=== PATIENT | female | born 1940 | race Caucasian/White ===

== ENCOUNTER 2019-10-31 11:11 | Outpatient (CLI) | payer MEDICARE, BC, SELFPAY | END 2019-10-31 11:12 | disposition home or self-care (01) | LOC: ONCMED 11:18 | PROVIDERS: Family Provider Family Medicine; PCP Family Medicine; Visit Provider Internal Medicine Medical Oncology | DX: Z45.2 Encounter for adjustment and management of vascular access device (principal) | CPT/HCPCS: 96523 ==

== ENCOUNTER → 2019-11-12 09:06 | Outpatient (BNVA) | payer MEDICARE, BC, SELFPAY | PROVIDERS: Family Provider Family Medicine; PCP Family Medicine; Referring Provider Internal Medicine Medical Oncology; Visit Provider Podiatrist Foot & Ankle Surgery | DX: M77.31 Calcaneal spur, right foot (principal); M21.41 Flat foot [pes planus] (acquired), right foot | CPT/HCPCS: 73620; 73630 ==

== ENCOUNTER → 2019-11-13 15:00 | Outpatient (BNVA) | payer MEDICARE, BC, SELFPAY | PROVIDERS: Family Provider Family Medicine; PCP Family Medicine; Visit Provider Nurse Practitioner Family | DX: R30.0 Dysuria (principal); R39.9 Unspecified symptoms and signs involving the genitourinary system; N76.0 Acute vaginitis | CPT/HCPCS: 81003; 87086 ==

== ENCOUNTER → 2019-11-26 14:21 | Outpatient (BNVA) | payer MEDICARE, BC, SELFPAY | PROVIDERS: Family Provider Family Medicine; PCP Family Medicine; Visit Provider Urology | DX: N39.0 Urinary tract infection, site not specified (principal); R33.9 Retention of urine, unspecified; N39.9 Disorder of urinary system, unspecified | CPT/HCPCS: 81001; 87077; 87086; 87186 ==

== ENCOUNTER 2019-12-01 13:25 | Outpatient (CLI) | payer MEDICARE, BC, SELFPAY | END 2019-12-01 13:26 | disposition home or self-care (01) | LOC: ONCMED 13:28 | PROVIDERS: Family Provider Family Medicine; PCP Family Medicine; Visit Provider Internal Medicine Medical Oncology | DX: Z45.2 Encounter for adjustment and management of vascular access device (principal) | CPT/HCPCS: 96523 ==

== ENCOUNTER 2019-12-04 10:06 | Outpatient (CLI) | payer MEDICARE, BC, SELFPAY ==
[2019-12-04 10:44] LABS: Basophils # 0.1 10^3/uL (0.0-0.1); Basophils % 0.6 %; Eosinophils # 0.6 10^3/uL (0.0-0.8); Eosinophils % 7.6 %; Hematocrit 40.5 % (37.0-47.0); Hemoglobin 13.2 g/dL (11.5-15.3); Lymphocytes # 2.7 10^3/uL (0.8-4.8); Lymphocytes % 33.2 %; Mean Corpuscular HGB Conc 32.6 g/dL (30.0-36.0); Mean Corpuscular Hemoglobin 30.5 pg (28.0-34.0); Mean Corpuscular Volume 93.5 fL (81-99); Mean Platelet Volume 8.5 fL (7.4-10.4); Monocytes # 0.9 10^3/uL (0.2-0.9); Monocytes % 11.3 %; Neutrophils # 3.9 10^3/uL (1.8-7.7); Neutrophils % 47.1 %; Nucleated Red Blood Cells % 0 %; Platelet Count 436 10^3/cmm (130-400); Red Blood Count 4.33 10^6/uL (4.1-5.3); Red Cell Distribution Width 13.2 % (12.1-15.1); White Blood Count 8.2 10^3/uL (4.0-10.0)
[2019-12-04 10:54] LABS: Albumin Level 3.8 g/dL (3.5-5.2); Anion Gap 14.9 (5-19); Blood Urea Nitrogen 18 mg/dL (8-23); Calcium 9.6 mg/dL (8.5-10.5); Carbon Dioxide 28 mmol/L (22-29); Chloride 93 mmol/L (98-107); Glucose 105 mg/dL (65-115); Potassium 3.9 mmol/L (3.5-5.1); Sodium 132 mmol/L (136-145)
[2019-12-04 10:59] LABS: Creatinine Urine, Random 34 mg/dL (28-217)
[2019-12-04 11:02] LABS: Microalbum Creatinine Ratio Ur 29 mg/dL (0-20); Microalbumin Random Urine 1 ug/dL (0-20)
[2019-12-04 11:11] LABS: Calcium 9.8 mg/dL (8.5-10.5); Parathyroid Hormone 149.7 pg/mL (15-65)
== END 2019-12-04 10:07 | disposition home or self-care (01) ==
LOC: LAB 10:07
PROVIDERS: Family Provider Family Medicine; PCP Family Medicine; Visit Provider Internal Medicine Nephrology
DX: N18.4 Chronic kidney disease, stage 4 (severe) (principal)
CPT/HCPCS: 36415; 80069; 82044; 82310; 83970; 85025

== ENCOUNTER → 2019-12-10 15:46 | Outpatient (BNVA) | payer MEDICARE, BC, SELFPAY | PROVIDERS: Family Provider Family Medicine; PCP Family Medicine; Visit Provider Urology | DX: N39.0 Urinary tract infection, site not specified (principal); N94.9 Unspecified condition associated with female genital organs and menstrual cycle | CPT/HCPCS: 81001 ==

== ENCOUNTER 2019-12-29 19:05 | Emergency (ER) | payer MEDICARE, BC, SELFPAY ==
[2019-12-29 19:40] VITALS: BP 131/87; PULSE 119; RESP 18; TEMP 36.4; O2SAT 95; BMI 27.2
[2019-12-29 20:28] LABS: Basophils % 0.5 %; Eosinophils # 0.1 10^3/uL (0.0-0.8); Eosinophils % 0.9 %; Hematocrit 45.8 % (37.0-47.0); Lymphocytes # 1.6 10^3/uL (0.8-4.8); Lymphocytes % 19.4 %; Mean Corpuscular HGB Conc 32.8 g/dL (30.0-36.0); Mean Corpuscular Hemoglobin 29.5 pg (28.0-34.0); Mean Platelet Volume 8.9 fL (7.4-10.4); Monocytes # 0.7 10^3/uL (0.2-0.9); Monocytes % 8.2 %; Neutrophils % 70.8 %; Nucleated Red Blood Cells % 0 %; Platelet Count 361 10^3/cmm (130-400); Red Blood Count 5.09 10^6/uL (4.1-5.3); Red Cell Distribution Width 13.4 % (12.1-15.1); White Blood Count 8.5 10^3/uL (4.0-10.0)
[2019-12-29 20:49] LABS: Alanine Aminotransferase 18 U/L (0-33); Albumin Level 4.4 g/dL (3.5-5.2); Alkaline Phosphatase 144 IU/L (35-105); Anion Gap 19.3 (5-19); Aspartate Amino Transferase 25 U/L (0-32); Blood Urea Nitrogen 17 mg/dL (8-23); Calcium 10.9 mg/dL (8.5-10.5); Carbon Dioxide 25 mmol/L (22-29); Chloride 93 mmol/L (98-107); Globulin 3.7 g/dL (1.3-4.6); Glucose 122 mg/dL (65-115); Lipase 21 U/L (13-60); Potassium 4.3 mmol/L (3.5-5.1); Sodium 133 mmol/L (136-145); Total Bilirubin 0.6 mg/dL (0.15-1.2); Total Protein 8.1 g/dL (6.6-8.7)
[2019-12-29 23:42] LABS: Add Urine Microscopic? YES; Bilirubin Urine Neg (NEGATIVE); Blood Urine Neg (Negative); Glucose Urine UA Norm (Normal); Ketones Urine Negative (Negative); Leukocyte Esterase Urine Trace (Negative); Nitrate Urine Negative (Negative); Protein Urine Neg (Negative); Urine Appearance Hazy (CLEAR); Urine Color Dark Yellow (Yellow); Urobilinogen Urine Norm (Negative); pH Urine 8 (5-7)
[2019-12-29 23:52] LABS: Sulfosalicylic Acid Urine Negative
[2019-12-29 23:54] LABS: RBC Urine 0-4 /hpf (0-2); WBC Urine 15-25 /hpf (0-5)
[2019-12-29 23:55] LABS: Add Urine Culture? No; Bacteria Urine 2+; Squamous Epithelial Cell Urine 25-40 (0-5); Transitional Epi Cells Urine 0-4 /hpf
--- NOTE | 2019-12-30 00:39 | ED_ITS ---
Entered by Jenni Sanchez, acting as scribe for Jami Stevens MD Dec 29, 2019 19:05 HPI - Female Genitourinary General: Chief complaint: Urogenital-Female Stated complaint: abd pain Time Seen by Provider: 12/30/19 00:33 Source: patient and family Mode of arrival: ambulatory History of Present Illness: HPI Narrative: 79 y/o female presents to the ED with complaint of abd pain and painful urination. Pt states she has not felt well for several days. She states feels like his urinary tract infection. She denies any vomiting or diarrhea. She denies any worsening or improving factors. MD elicited complaint: dysuria and other (abd pain) Onset (ago): day(s) Severity: mild Quality of pain: cramping and burning Consistency: constant Urinary symptoms: Dysuria Associated symptoms: Reports abdominal pain; Deny headache(s) Review of Systems Const: Denies: fever, chills, body aches or change in appetite Eyes: Denies: blurry vision or eye discomfort ENMT: Denies: throat pain or dental pain Card: Denies: chest pain Resp: Denies: shortness of breath GI: Reports: abdominal pain and constipation; Denies: vomiting : Reports: painful urination Musc: Denies: neck pain or back pain Skin/Breast: Denies: rash Neuro: Denies: headache Psych: Denies: depression Alvaro/Lymph: Denies: easy bruising All/Imm: Denies: hives PFS ED PFSH: Medical History (Updated 12/30/19 @ 02:36 by Jami Stevens MD) Cancer of right kidney Genital atrophy of female Recurrent UTI Retention of urine S/p nephrectomy Surgical History H/O transurethral destruction of bladder lesion S/P mastectomy Status post repair cleft left atrioventricular valve leaflet Social History (Updated 12/10/19 @ 15:45 by Radha Fabian LPN) Smoking and tobacco status: never smoked Alcohol intake: never Adopted: No Caregiver/support person: No Lives independently: No Household members: spouse Marital status: Current occupational status: retired History of recent travel: No Physical Exam Const: COMMON NORMALS: no apparent distress, oriented x3 and healthy appearing HENMT: COMMON NORMALS: normocephalic and head/scalp atraumatic HEAD & SCALP: normocephalic and atraumatic Eye: COMMON NORMALS: PERRL and EOMs intact bilaterally PUPIL: Yes PERRL Neck/C-Spine: COMMON NORMALS: full ROM and supple Chest: COMMONS NORMALS: inspection of chest normal and palpation of chest normal Resp: COMMON NORMALS: normal respiratory effort, no retractions, no use of accessory muscles and clear to auscultation bilaterally AUSCULTATION: clear to auscultation bilaterally Cardio: COMMON NORMALS: regular rate, regular rhythm and no murmurs RATE: regular rate RHYTHM: regular rhythm GI: COMMON NORMALS: normal to inspection, nondistended, normoactive bowel sounds and no masses PALPATION: Yes tender Extremity: COMMON NORMALS: normal to inspection and full ROM Neuro: COMMON NORMALS: oriented x3, moves all extremities and no focal motor deficits Psych: COMMON NORMALS: mental status grossly normal, thought process normal and cooperative THOUGHT PROCESS: normal thought process Skin: COMMON NORMALS: no rashes or lesions noted and no wounds GENERAL SKIN EXAM: no rashes or lesions noted Course Vital Signs: Vital signs: Vital Signs Temperature 97.6 F 12/29/19 19:40 Pulse Rate 92 12/30/19 03:26 Respiratory Rate 22 H 12/30/19 03:26 Blood Pressure 122/82 12/30/19 03:26 Pulse Oximetry 97 12/30/19 03:26 MDM - Female MDM Narrative: Medical decision making narrative: Patient presents with dysuria and likely urinary tract infection. CT scan shows possible Larry. She has no fever or vomiting. Patient's white count was normal I feel she is stable for discharge. She is to follow-up with her primary care doctor in 3 to 5 days return if worsening. Lab Data: Labs: Lab Results 12/29/19 12/29/19 12/29/19 Range/Units 20:18 20:18 22:55 WBC 8.5 (4.0-10.0) 10^3/ uL RBC 5.09 (4.1-5.3) 10^6/u L Hgb 15.0 (11.5-15.3) g/dL Hct 45.8 (37.0-47.0) % MCV 90.0 (81-99) fL MCH 29.5 (28.0-34.0) pg MCHC 32.8 (30.0-36.0) g/dL RDW 13.4 (12.1-15.1) % Plt Count 361 (130-400) 10^3/c mm MPV 8.9 (7.4-10.4) fL Neut % (Auto) 70.8 % Lymph % (Auto) 19.4 % [place] % (Auto) 8.2 % Eos % (Auto) 0.9 % Baso % (Auto) 0.5 % Neut # (Auto) 6.0 (1.8-7.7) 10^3/u L Lymph # (Auto) 1.6 (0.8-4.8) 10^3/u L [place] # (Auto) 0.7 (0.2-0.9) 10^3/u L Eos # (Auto) 0.1 (0.0-0.8) 10^3/u L Baso # (Auto) 0.0 (0.0-0.1) 10^3/u L Nucleated RBC % (a uto) 0 % Nucleated RBCs # 0.0 /100WBC Sodium 133 L (136-145) mmol/L Potassium 4.3 (3.5-5.1) mmol/L Chloride 93 L (98-107) mmol/L Carbon Dioxide 25 (22-29) mmol/L Anion Gap 19.3 H (5-19) BUN 17 (8-23) mg/dL Creatinine 1.9 H (0.5-0.9) mg/dL Glucose 122 H (65-115) mg/dL Calcium 10.9 H (8.5-10.5) mg/dL Total Bilirubin 0.6 (0.15-1.2) mg/dL AST 25 (0-32) U/L ALT 18 (0-33) U/L Alkaline Phosphata se 144 H (35-105) IU/L Total Protein 8.1 (6.6-8.7) g/dL Albumin 4.4 (3.5-5.2) g/dL Globulin 3.7 (1.3-4.6) g/dL Lipase 21 (13-60) U/L Urine Color Dark yellow (Yellow) Urine Appearance Hazy A (CLEAR) Urine pH 8 H (5-7) Ur Specific Gravit y 1.010 (1.005-1.030) Urine Protein Neg (Negative) Urine Glucose (UA) Norm (Normal) Urine Ketones Negative (Negative) Urine Blood Neg (Negative) Urine Nitrate Negative (Negative) Urine Bilirubin Neg (NEGATIVE) Prot Sulfosalicyli c Acd Negative Urine Urobilinogen Norm (Negative) mg/dL Ur Leukocyte Claudia ase Trace H (Negative) Urine RBC 0-4 H (0-2) /hpf Urine WBC 15-25 H (0-5) /hpf Ur Squamous Epith Cells 25-40 H (0-5) Ur Transition Epit h Cell 0-4 /hpf Urine Bacteria 2+ H (NONE) Imaging Data: CT Abd/Pel: Radiologist's impression: Dr: Ordering Provider/Ordering MD: Jami Stevens MD Date of Service: 12/30/19 Procedure(s): CT abdomen pelvis con [id number] Accession Number(s): [id number] Report Number: [id number] PROCEDURE INFORMATION: Exam: CT Abdomen And Pelvis Without Contrast Exam date and time: 12/30/2019 12:43 AM Age: 79 years old Clinical indication: Abdominal pain; Localized; Lower; Prior surgery; Surgery date: 6+ months; Surgery type: Right nephrectomy; Additional info: Abd pain TECHNIQUE: Imaging protocol: Computed tomography of the abdomen and pelvis without contrast. Total DLP: 778.17 mGy-cm Radiation optimization: All CT scans at this facility use at least one of these dose optimization techniques: automated exposure control; mA and/or kV adjustment per patient size (includes targeted exams where dose is matched to clinical indication); or iterative reconstruction. COMPARISON: CT Chest/Abdomen/Pelvis wo IV 09/30/2019 10:56 AM FINDINGS: Liver: Normal. No mass. Gallbladder and bile ducts: Cholelithiasis. Gallbladder otherwise grossly unremarkable. Pancreas: Normal. No ductal dilation. Spleen: Normal. No splenomegaly. Adrenals: Normal. No mass. Kidneys and ureters: Changes of right nephrectomy. Stomach and bowel: Colonic diverticuli. Appendix: No evidence of appendicitis. Intraperitoneal space: Unremarkable. No free air. No significant fluid collection. Vasculature: Calcifications. No abdominal aortic aneurysm. Lymph nodes: Unremarkable. No enlarged lymph nodes. Bladder: See below. Reproductive: Hysterectomy. Bones/joints: Hemangioma L4 unchanged. Soft tissues: Right breast external prosthesis noted. Fatty ventral hernias are unchanged. Other findings: Cystocele unchanged. CT/CT abdomen pelvis wo con [id number] IMPRESSION: No acute findings. Cholelithiasis. Right nephrectomy. Additional details as above. Discharge Plan Discharge Patient Disposition: Home, Self-Care Clinical Impression: Urinary tract infection Qualifiers: Urinary tract infection type: acute cystitis Hematuria presence: without hematuria Qualified Code(s): N30.00 - Acute cystitis without hematuria Condition: Stable Prescriptions: New Keflex 500 mg capsule 500 mg PO Q6H 7 Days Qty: 28 RF: 0 No Action aspirin 81 mg tablet,delayed release (DR/EC) 81 mg PO ONCE RF: 0 atorvastatin 20 mg tablet 20 mg PO ONCE RF: 0 carvedilol 12.5 mg tablet 12.5 mg PO BID RF: 0 furosemide 40 mg tablet 40 mg PO QAM RF: 0 hydromorphone 4 mg tablet 4 mg PO Q6H PRNRF: 0 olanzapine 2.5 mg tablet 2.5 mg PO ONCE RF: 0 omeprazole 40 mg capsule,delayed release(DR/EC) 40 mg PO BID RF: 0 prednisone 2.5 mg tablet 2.5 mg PO .QOD RF: 0 potassium chloride 10 mEq capsule, extended release 10 meq PO DAILY RF: 0 spironolactone 25 mg tablet 25 mg PO DAILY RF: 0 methenamine hippurate 1 gram tablet 1 gm PO BID Qty: 60 RF: 12 ascorbic acid (vitamin C) 1,000 mg tablet 1 gm PO BID Qty: 60 RF: 3 amitriptyline 25 mg tablet 25 mg PO DAILY RF: 0 diclofenac sodium [Voltaren] 1 % gel 4 gm TOPICAL QID Qty: 100 RF: 3 Discharge Orders: Discharge Order (Routine); Ordered 12/30/19 Ordered By: Jami Stevens Referrals: Andrei Millan MD [Primary Care Provider] - 1-3 days Discharge Diet: Advance as tolerated Discharge Activity: Resume usual activity Patient Instructions: Urinary Tract Infection in Women (ED) Discharge Date/Time: 12/30/19 03:28 Coding Level of Care Code ED Line Fisher for Chg Fwd Exam Comprehensive The documentation recorded by the Daniel martinez Ashley, accurately reflects the service I personally performed and the decisions made by Hilda powell Korby, MD Dec 29, 2019 19:05
[2019-12-30] MEDS: sodium chloride 0.9% 1,000 ML 999 ML IV (01:11)
[2019-12-30 01:12] VITALS: RESP 16
[2019-12-30] MEDS: morphine 4 mg/mL SDV 1 mL IVP (01:12)
[2019-12-30] MEDS: ondansetron 2 mg/ML SDV 2 mL 4 MG IVP (01:13)
[2019-12-30] MEDS: cefTRIAXone 1,000 MG in sodium chloride 0.9% (plus) 50 ML 100 MG IV (02:50)
[2019-12-30 03:26] VITALS: BP 122/82; PULSE 92; RESP 22; O2SAT 97
--- NOTE | 2019-12-30 03:35 | PC.NURSE ---
assessment reviewed and agree
== END 2019-12-30 03:28 | disposition home or self-care (01) ==
PROVIDERS: Emergency Provider Emergency Medicine; Family Provider Family Medicine; PCP Family Medicine
DX: N39.0 Urinary tract infection, site not specified (principal)
CPT/HCPCS: 36415; 74176; 80053; 81001; 81003; 83690; 85025; 87086; 96365; 96375; 99283; 99284; J0696; J2270; J2405; J7030

== ENCOUNTER → 2019-12-31 13:35 | Outpatient (BNVA) | payer MEDICARE, BC, SELFPAY | PROVIDERS: Family Provider Family Medicine; PCP Family Medicine; Visit Provider Urology | DX: N39.0 Urinary tract infection, site not specified (principal); N94.9 Unspecified condition associated with female genital organs and menstrual cycle | CPT/HCPCS: 81001; 87086 ==

== ENCOUNTER 2020-01-06 08:25 | Outpatient (CLI) | payer MEDICARE, BC, SELFPAY ==
[2020-01-06] MEDS: alteplase 1 mg/mL SDV 2 mL 2 MG IV ×2 (08:56→10:36)
[2020-01-06 09:17] LABS: Add Urine Microscopic? NO
[2020-01-06 09:24] LABS: Specific Gravity, Urine 1.005 (1.005-1.030); Urine Appearance Clear (CLEAR); Urine Color Straw (Yellow)
[2020-01-06 09:26] LABS: Bilirubin Urine Neg (NEGATIVE); Blood Urine Neg (Negative); Glucose Urine UA Norm (Normal); Ketones Urine Negative (Negative); Leukocyte Esterase Urine Negative (Negative); Nitrate Urine Negative (Negative); Protein Urine Neg (Negative); Urobilinogen Urine Norm (Negative)
[2020-01-06 09:27] LABS: Basophils % 0.5 %; Eosinophils # 0.4 10^3/uL (0.0-0.8); Eosinophils % 5.8 %; Hematocrit 40.4 % (37.0-47.0); Hemoglobin 12.9 g/dL (11.5-15.3); Lymphocytes # 1.7 10^3/uL (0.8-4.8); Lymphocytes % 26.6 %; Mean Corpuscular HGB Conc 31.9 g/dL (30.0-36.0); Mean Corpuscular Hemoglobin 29.5 pg (28.0-34.0); Mean Corpuscular Volume 92.4 fL (81-99); Mean Platelet Volume 8.9 fL (7.4-10.4); Monocytes # 0.4 10^3/uL (0.2-0.9); Monocytes % 6.6 %; Neutrophils # 3.8 10^3/uL (1.8-7.7); Neutrophils % 60.3 %; Nucleated Red Blood Cells % 0 %; Platelet Count 315 10^3/cmm (130-400); Red Blood Count 4.37 10^6/uL (4.1-5.3); Red Cell Distribution Width 14.2 % (12.1-15.1); White Blood Count 6.4 10^3/uL (4.0-10.0)
[2020-01-06 09:36] LABS: Alanine Aminotransferase 12 U/L (0-33); Albumin Level 3.3 g/dL (3.5-5.2); Alkaline Phosphatase 104 IU/L (35-105); Aspartate Amino Transferase 17 U/L (0-32); Blood Urea Nitrogen 12 mg/dL (8-23); Calcium 9.5 mg/dL (8.5-10.5); Carbon Dioxide 24 mmol/L (22-29); Chloride 98 mmol/L (98-107); Globulin 3.5 g/dL (1.3-4.6); Glucose 150 mg/dL (65-115); Lactate Dehydrogenase 140 U/L (135-214); Osmolality Calculated 273 mOsm/kg (285-295); Sodium 132 mmol/L (136-145); Total Bilirubin 0.5 mg/dL (0.15-1.2); Total Protein 6.8 g/dL (6.6-8.7)
--- NOTE | 2020-01-10 13:40 | ONC FU_ITS ---
Dr. Newsome Patient Follow-Up Note Patient: Pratibha Ann Unit #: [id number]: 1940 Dicatated By: Reg Newsome M.D.Date of Visit:Jan 06, 2020 Onc Med Follow-up/Prog Note Chief Complaint: Renal cell cancer. History of Present Illness: This is a 79 year-old woman with metastatic renal cell cancer. She had presented in October 2014 with pain in the right flank area and right side of the back. A CT scan of the abdomen/pelvis showed an upper pole mass in the right kidney measuring 3.1 x 4 x 4.4 cm. The appearance was suspicious for neoplasm. There was associated retroperitoneal and retrocrural lymphadenopathy and there were bilateral lower lobe subcentimeter pulmonary nodules. PET/CT on 12/19/2014 showed 4.3 cm FDG avid mass in the right kidney measuring 4.3 cm. There were multiple FDG avid retroperitoneal lymph nodes which included an infrarenal aortic caval node with SUV 7.4. A 9 mm right retrocrural lymph node was FDG negative. There was no portacaval, mediastinal, or supraclavicular adenopathy noted. There were no hepatic or adrenal metastases. There were innumerable subcentimeter pulmonary nodules. An 8 mm nodule in the left lung apex did show FDG uptake with SUV 2.0. The remainder were FDG negative, presumably due to their small size. The appearance was felt to be consistent with pulmonary metastases. She was referred to Dr. Ronni Rapp in [place]. A right renal biopsy on 12/29/2014 showed poorly differentiated carcinoma consistent with a Radha grade 3/4 renal cell carcinoma. On 01/06/2015 she underwent right robotic-assisted laparoscopic radical nephrectomy and right para vena caval lymph node dissection. Pathology showed clear cell renal cell carcinoma, Radha nuclear grade 3. The tumor measured 5.5 cm in maximum dimension. There was extension into the renal sinus adipose tissue and into the wall of the renal vein. There was invasion through the renal capsule into the perinephric adipose tissues. There was involvement of the renal sinus resection margin and the renal vein resection margin. One right perihilar lymph node was benign. Right destiny-vena cava biopsy showed benign adipose tissue with no lymph node identified. Following the surgery, she had continued to have a fair amount of pain in the right side of the abdomen, right flank, and right side of the back. She also had constipation and severe nausea/anorexia. We had not been able to determine a specific cause for the pain or the nausea/anorexia, and thus far she has just continued symptomatic management for it. She eventually did start a trial of therapy with pazopanib following her visit here on 02/15/2015. It was stopped within a short time because of side effects. It was restarted at a reduced dosage (400 mg daily) following her visit in February 2015. She still tolerated it poorly even at the reduced dosage. She had restaging CT scans on 05/12/2015. There was again evidence of innumerable pulmonary nodules bilaterally. These ranged in size from 5-15 mm. The majority showed cavitary necrotic centers. There was a very slight increase in the size of the pulmonary nodules from the previous study. There was extensive mediastinal lymphadenopathy and bilateral necrotic hilar adenopathy. The adenopathy in the abdomen/pelvis was noted to have increased in size and it appeared more confluent. The largest group of confluent necrotic lymph nodes was at the level of the right renal vein measuring 5.7 x 3.8 x 3.8 cm. Overall, there was evidence of significant disease progression. In May 2015 she began a trial of therapy with Torisel. She received her initial treatment on 06/04/2015. She was unable to complete it due to hypersensitivity reaction. As of 06/24/2015 she started a trial of therapy with nivolumab at a standard dosage of 3 mg/kg by IV infusion every 2 weeks. She tolerated it very well, and during this time she had significant improvement in her performance status. Restaging CT scans in July 2015 showed interval marked improvement in the pulmonary metastatic disease and in the bilateral hilar and mediastinal lymphadenopathy and interval moderate decrease in the size and number of retroperitoneal lymph nodes. As of 12/02/2015 she had completed 12 cycles of treatment. Restaging CT scans at that time showed continued decrease in the size and number of bilateral pulmonary metastatic nodules with no evidence of disease progression in the chest. There was also further decrease in the retroperitoneal lymphadenopathy, and no evidence of disease progression in the abdomen/pelvis region. She continued treatment with nivolumab. In January 2016 her treatment was put on hold due to increasing fatigue and musculoskeletal pain. Restaging CT scans on 03/03/2016 showed no evidence of disease progression. There were irregular pulmonary nodules in the upper lobes bilaterally, but they did appear stable. There was no inguinal, retroperitoneal, or mesenteric adenopathy noted. She did have evidence of extensive abdominal aorta and left iliac artery calcific atheromatous changes, but without aneurysm. There were degenerative changes in the lumbar spine. She did report symptomatic improvement with prednisone, and she was able to continue with cycle 18 of nivolumab on 03/09/2016. CT of the chest, abdomen, and pelvis on 09/06/2016 showed stable pulmonary parenchymal nodules compared to previous studies from 03/03/2016 and 11/30/2015. There was no evidence of a neoplastic process within the abdomen or pelvis. She continued treatment with nivolumab. She received cycle 37 on 11/30/2016. On 12/01/2016, the day following her nivolumab infusion, she had an episode of chest pain. Her pain began in the right side of her back and radiated to her chest. She did not have shortness of breath with that episode, but said that she was hypertensive. She took two nitroglycerin and her pain resolved. She did not go to the emergency room. She did see Dr. Millan, who prescribed her an additional blood pressure pill. She indicated that she had experienced 5 or 6 of these type of spells in the last several years. However, at at that point I did opt to put her nivolumab on hold. Restaging CT scans of the chest, abdomen, and pelvis on 12/26/2016 showed no evidence of progressive disease. There were stable subcentimeter 4 5-mm pulmonary nodules noted. There was no mediastinal, abdominal, or pelvic lymphadenopathy. She was then followed on observation/expectant management. She had repeat CT scans of the chest, abdomen, and pelvis on 03/30/2017. There were stable subcentimeter pulmonary nodules which were described as having an inflammatory appearance. There were changes related to the prior nephrectomy. There was no evidence of disease progression in the chest, abdomen, or pelvis. Her surveillance CT scans in September 2017 remained stable. Her other medical illnesses include hypertension and hyperlipidemia. She also has been treated for both cervical cancer and breast cancer. She had smoked for a short time in the past, but she quit at age 27. INTERIM HISTORY: Repeat CT scans on 03/28/2018 showed stable subcentimeter pulmonary nodules dating back to August 2016. There was no other evidence of metastatic disease in the chest, abdomen, or pelvis. With those findings, she continued on observation/expectant management. Restaging CT scans of the chest, abdomen, and pelvis on 10/04/2018 showed no evidence of recurrent or metastatic disease. Her repeat CT scans of the chest, abdomen, and pelvis on 04/08/2019 showed a few tiny subcentimeter pulmonary nodules with pleural nodularity in both lungs, stable compared to prior studies. There was no mediastinal or hilar adenopathy and there was no evidence of metastatic disease in the abdomen or pelvis. Restaging CT scans on 09/30/2019 showed no evidence of a neoplastic process in the chest, abdomen, or pelvis. She continued on observation/expectant management. CT abdomen/pelvis on 12/30/2019 showed no acute findings. There was no evidence of neoplastic process. She is seen for a scheduled visit. Her main problem recently is that she has been having recurrent urinary tract infection. She is seeing Dr. Whatley. She has been on antibiotic. She still complains of having burning with urination off and on. Yesterday she felt sick to her stomach. She complains that she has been tired, but she is doing light work. Her appetite is fair. She has lost some weight. She does not have fever or night sweats. She has no shortness of breath, cough, or chest pain. She has no other GI or complaints. She has no significant joint or bone pain. She does not complain of headache. She sometimes has dizziness. She has neuropathy in her feet. Medications: Amitriptyline HCl 1 Tablet (of 25 mg) Oral daily, Aspirin 1 (81 mg) Tablet Oral daily, Atorvastatin Calcium 1 Tablet (of 20 mg) Oral at bedtime, Carvedilol 1 Tablet (of 12.5 mg) Oral daily, Cephalexin 1 Capsule (of 500 mg) Oral q 6 hours PRN, Furosemide 1 Tablet (of 40 mg) Oral b.i.d., HYDROmorphone HCl 1 - 2 (2 mg) Tablet Oral q 4 hours PRN, Klor-Con M10 1 Tablet (of 10 meq) Tablet, controlled release Oral daily, Lactulose 30 mL (of 20 g/30mL) Solution Oral PRN, Nitrofurantoin Monohyd Macro 1 Capsule (of 100 mg) Oral b.i.d., OLANZapine 1 Tablet (of 2.5 mg) Oral at bedtime, Omeprazole 1 Tablet (of 20 mg) Tablet, enteric coated Oral b.i.d., PredniSONE (2.5 mg) Tablet Oral Take as Directed, Senna S 2 Tablet (of 8.6-50 mg) Oral t.i.d., Spironolactone 1 Tablet (of 25 mg) Oral daily Allergies: Gabapentin, Sulfa Antibiotics, and Torisel. Review of Systems: Constitutional - Her energy level is low. She was been walking some at home and is doing light house work. Appetite is good but her weight is down 5 pounds. No fever, chills, hot flashes, or night sweats. ECOG score is 1, ENMT - No sinus congestion/drainage. No mouth sores but her mouth feels very dry. No sore throat or difficulty swallowing, Hematologic/Lymphatic - No abnormal bruising or bleeding, Respiratory - No shortness of breath. No cough. No pleuritic pain or hemoptysis, Cardiovascular - No angina pain. No palpitations, Gastrointestinal - She has nausea which is controlled with Zofran. No vomiting. No heartburn or acid reflux. No diarrhea or constipation. No blood in the stool or black stools, Genitourinary (F) - She has dysuria. She is on prophylactic antibiotics for frequent UTI's. No hematuria. No urinary frequency. No urgency or incontinence, Musculoskeletal - No joint or bone pain, Integumentary - No skin complications, Neurologic - No headache or dizziness. She is neuropathy to her feet, Psychiatric - No anxiety or depression. No insomnia. Vital Signs: Performed on Jan 06, 2020 10:04 Height - 66.00 in Weight - 170.0 lbs (LOW) BSA - 1.87 sq.m BMI - 27.44 Temperature - 98.0 F (LOW) Pulse - 86 /min Respiration - 16 /min BP - 130/69 mm(hg) O2 Sat - 97 % Pain - 0 Physical Examination: Constitutional - She looks pretty good generally, Eyes - Sclerae nonicteric. Conjunctivae clear, ENMT - Mouth is dry. There are no lesions noted in the oral cavity, Hematologic/Lymphatic - No cervical, clavicular, or axillary adenopathy, Respiratory - Lungs sound clear with good air movement bilaterally, Cardiovascular - Heart rhythm is regular. There is no gallop or rub noted, Abdomen - Soft. Liver and spleen are not enlarged. There is no abdominal mass or ascites noted and there is no inguinal adenopathy, Extremities - No edema, Neurologic - No focal neurologic deficits noted. Lab/Imaging: Test performed on Jan 06, 2020 08:56 LDH (Total) 140 U/L Sodium 132 mmol/L Potassium 4.0 mmol/L Chloride 98 mmol/L CO2 24 mmol/L Anion Gap 14.0 BUN 12 mg/dL Creatinine 1.8 mg/dL Cr Clearance (Est) 31.86 mL/min Glucose 150 mg/dL Calcium 9.5 mg/dL Protein, Total 6.8 g/dL Albumin 3.3 g/dL Globulin 3.5 g/dL Bilirubin, Total 0.5 mg/dL ALT (SGPT) 12 U/L AST (SGOT) 17 U/L Alkaline Phosphatase 104 IU/L WBC 6.4 10 3/uL RBC 4.37 10 6/uL HGB 12.9 g/dL HCT 40.4 % MCV 92.4 fL MCH 29.5 pg MCHC 31.9 g/dL RDW 14.2 % Platelet Count 315 10 3/cmm MPV 8.9 fL Neutrophils 3.8 10 3/uL Lymphocytes 1.7 10 3/uL Monocytes 0.4 10 3/uL Eosinophils 0.4 10 3/uL Basophils 0.0 10 3/uL Neutrophil % 60.3 % Lymphocyte % 26.6 % Monocyte % 6.6 % Eosinophil % 5.8 % Basophils % 0.5 % Impression: 1. Patient with clear-cell carcinoma of the right kidney, Radha grade 3, stage IV (pT3a, N0, M1). She underwent right robotic-assisted laparoscopic radical nephrectomy on 01/06/2015. 2. Her subsequent management was complicated due to ongoing problems with pain in the flank/back on the right side, constipation, and severe nausea/anorexia. I was not able to identify any specific cause for those problems. Her management at that point was further complicated by numerous medication intolerances. 3. She eventually did start a trial of therapy with pazopanib, but she tolerated it poorly, even at a reduced dosage (400 mg daily), and followup CT scans in April did show evidence of significant disease progression. At that point the pazopanib was stopped. She started a trial of therapy with Torisel on 06/04/2015, but she was unable to complete the initial infusion because of an acute infusion reaction. 4. She then started treatment with nivolumab on 06/24/2015. She has tolerated it very well at a standard dosage of 3 mg/kg by IV infusion every 2 weeks. She had significant improvement in her performance status as well as evidence of significant response by restaging CT scans. 5. In January 2016 her treatment was put on hold due to increasing fatigue and musculoskeletal pain. Restaging CT scans again on 03/03/2016 showed evidence of residual pulmonary nodules in the upper lobes bilaterally, but they did appear stable. There was no evidence of disease progression. In the meantime, she had significant symptomatically improvement with prednisone, and she was able to resume treatment with nivolumab. 6. As of November 2016 I did opt to put her treatment on hold after she had presented to the emergency room with chest pain and hypertension. Her restaging CT scans on 12/26/2016 also showed no evidence of disease progression. She has since then continued observation/expectant management. Her other medical illnesses include: 7. Hypertension. 8. Hyperlipidemia. 9. There is CT evidence of atherosclerotic cardiovascular disease. During follow-up she continued to have some fatigue and she had pain in her lower extremities, though it generally was tolerable on a low dose of prednisone. As of her follow-up visit in February 2018 there was no evidence of disease progression on her restaging CT scans, and she continued on observation/expectant management. She has since then continued to have some fatigue. She has had ongoing problems with residual neuropathy in her legs, which has limited her activity. She had shown some improvement with physical therapy. She has since then required antibiotic therapy for recurrent urinary tract infections. Overall, she has been doing well clinically with no evidence of recurrence/progression of the renal cell cancer. Plan: She remains on observation/expectant management for the renal cell cancer. She will stop her potassium supplement. She will be scheduled for a follow-up visit with surveillance CT scans in 3 months. Signed By: Reg Newsome M.D. <<Signature on File>>
== END 2020-01-06 08:26 | disposition home or self-care (01) ==
LOC: ONCMED 08:25
PROVIDERS: Family Provider Family Medicine; PCP Family Medicine; Visit Provider Internal Medicine Medical Oncology
DX: Z08 Encounter for follow-up examination after completed treatment for malignant neoplasm (principal); Z85.528 Personal history of other malignant neoplasm of kidney; T82.594A Other mechanical complication of infusion catheter, initial encounter; Y80.1 Therapeutic (nonsurgical) and rehabilitative physical medicine devices associated with adverse incidents; R30.0 Dysuria; I10 Essential (primary) hypertension; E78.5 Hyperlipidemia, unspecified; I25.10 Atherosclerotic heart disease of native coronary artery without angina pectoris; Z79.82 Long term (current) use of aspirin; Z79.899 Other long term (current) drug therapy; Z79.891 Long term (current) use of opiate analgesic; Z79.52 Long term (current) use of systemic steroids; Z90.5 Acquired absence of kidney; Z85.41 Personal history of malignant neoplasm of cervix uteri; Z87.891 Personal history of nicotine dependence; Z92.25 Personal history of immunosuppression therapy; Z87.440 Personal history of urinary (tract) infections
CPT/HCPCS: 36415; 80053; 81003; 83615; 85025; 96374; 96375; G0463; J2997

== ENCOUNTER 2020-02-06 10:48 | Outpatient (CLI) | payer MEDICARE, BC, SELFPAY ==
[2020-02-06] MEDS: alteplase 1 mg/mL SDV 2 mL 2 MG IV ×2 (11:09→12:10)
== END 2020-02-06 10:49 | disposition home or self-care (01) ==
LOC: ONCMED 10:48
PROVIDERS: Family Provider Family Medicine; PCP Family Medicine; Visit Provider Nurse Practitioner
DX: Z45.2 Encounter for adjustment and management of vascular access device (principal)
CPT/HCPCS: 36593; 96374; J2997

== ENCOUNTER → 2020-02-26 13:58 | Outpatient (BNVA) | payer MEDICARE, BC, SELFPAY | PROVIDERS: Family Provider Family Medicine; PCP Family Medicine; Visit Provider Nurse Practitioner Family | DX: N39.0 Urinary tract infection, site not specified (principal); R33.9 Retention of urine, unspecified | CPT/HCPCS: 81001 ==

== ENCOUNTER 2020-03-08 14:45 | Outpatient (CLI) | payer MEDICARE, BC, SELFPAY | END 2020-03-08 14:46 | disposition home or self-care (01) | LOC: ONCMED 14:47 | PROVIDERS: PCP Family Medicine; Visit Provider Nurse Practitioner | DX: Z45.2 Encounter for adjustment and management of vascular access device (principal); C64.1 Malignant neoplasm of right kidney, except renal pelvis; C78.00 Secondary malignant neoplasm of unspecified lung; C77.8 Secondary and unspecified malignant neoplasm of lymph nodes of multiple regions | CPT/HCPCS: 96523 ==

== ENCOUNTER → 2020-03-25 14:21 | Outpatient (BNVA) | payer MEDICARE, BC, SELFPAY | PROVIDERS: PCP Family Medicine; Visit Provider Nurse Practitioner Family | DX: N39.0 Urinary tract infection, site not specified (principal); M19.079 Primary osteoarthritis, unspecified ankle and foot | CPT/HCPCS: 80053; 81001 ==

== ENCOUNTER 2020-04-08 08:46 | Outpatient (CLI) | payer MEDICARE, BC, SELFPAY ==
--- NOTE | 2020-04-08 09:14 | CT_ITS ---
WS: [id number] CT scan of the chest Without IV contrast, CT scan of the abdomen and pelvis without IV contrast and with oral contrast. Additional two-dimensional coronal and sagittal reconstruction was performed. 03/29 Clinical Data: RENAL CELL CANCER Comparison: CT abdomen and pelvis, 12/30/2019, CT chest abdomen pelvis, 09/30/2019. DLP: 1417.[address] scans at [facility] use at least one of these dose optimization techniques: automat ed exposure control; mA and/or kV adjustment per patient size (includes targeted exams where dose is matched to clinical indication); or iterative reconstruction. Findings: Chest: The right breast is absent. There is a left subclavian catheter which ends in the superior vena cava. No nodules, masses or effusions are seen. The heart size is normal with no pericardial effusion. The pulmonary arterial system and thoracic aorta demonstrate no abnormalities or dilatations. There is no axillary or significant mediastinal adenopathy. No bony abnormalities are seen. Abdomen/pelvis: The liver, gallbladder, spleen, adrenal glands and pancreas are normal. The right kidney is absent. The left kidney shows no change from before. No left renal cysts, masses, hydronephrosis or calculi are seen.. The abdominal aorta is normal in size with moderate calcification in the wall. No appendicitis or diverticulitis is seen. Oral contrast is in the stomach and small bowel and there is no bowel dilatation. No abscess, adenopathy, ascites, mass, obstruction or free air is seen. There is a fat-containing umbilical hernia. The bladder is unremarkable. The uterus is absent. No inguinal hernia is seen. The bones of the lower thorax, lumbar spine, pelvis, and hips show only an L3 vertebral body hemangio ma unchanged. No bony metastatic lesions are seen. CT/CT chest abd pel wo con Impression: 1. Right mastectomy unchanged. 2. Negative for acute cardiopulmonary disease. 3. Absent right kidney. 4. Absent uterus. 5. Negative for acute intra-abdominal or pelvic abnormalities.
[2020-04-08 09:28] LABS: Basophils # 0.1 10^3/uL (0.0-0.1); Eosinophils # 0.7 10^3/uL (0.0-0.8); Hematocrit 46.4 % (37.0-47.0); Hemoglobin 15.2 g/dL (11.5-15.3); Lymphocytes # 3.1 10^3/uL (0.8-4.8); Lymphocytes % 38.1 %; Mean Corpuscular HGB Conc 32.8 g/dL (30.0-36.0); Mean Corpuscular Hemoglobin 29.9 pg (28.0-34.0); Mean Corpuscular Volume 91.2 fL (81-99); Mean Platelet Volume 8.9 fL (7.4-10.4); Monocytes # 0.8 10^3/uL (0.2-0.9); Monocytes % 9.6 %; Neutrophils # 3.5 10^3/uL (1.8-7.7); Neutrophils % 43.1 %; Nucleated Red Blood Cells % 0 %; Platelet Count 340 10^3/cmm (130-400); Red Blood Count 5.09 10^6/uL (4.1-5.3); Red Cell Distribution Width 13.5 % (12.1-15.1); White Blood Count 8.1 10^3/uL (4.0-10.0)
[2020-04-08 09:33] LABS: Alanine Aminotransferase 18 U/L (0-33); Albumin Level 4.3 g/dL (3.5-5.2); Alkaline Phosphatase 142 IU/L (35-105); Anion Gap 14.8 (5-19); Aspartate Amino Transferase 21 U/L (0-32); Blood Urea Nitrogen 16 mg/dL (8-23); Calcium 9.7 mg/dL (8.5-10.5); Carbon Dioxide 25 mmol/L (22-29); Chloride 94 mmol/L (98-107); Globulin 2.6 g/dL (1.3-4.6); Glucose 122 mg/dL (65-115); Lactate Dehydrogenase 161 U/L (135-214); Osmolality Calculated 268 mOsm/kg (285-295); Potassium 3.8 mmol/L (3.5-5.1); Sodium 130 mmol/L (136-145); Total Bilirubin 0.5 mg/dL (0.15-1.2); Total Protein 6.9 g/dL (6.6-8.7)
[2020-04-08] MEDS: iohexol 300 mg/mL 50 mL Btl PO (10:31)
== END 2020-04-08 08:47 | disposition home or self-care (01) ==
LOC: ONCMED 08:51
PROVIDERS: PCP Family Medicine; Visit Provider Internal Medicine Medical Oncology
DX: C64.1 Malignant neoplasm of right kidney, except renal pelvis (principal); C78.01 Secondary malignant neoplasm of right lung; C78.02 Secondary malignant neoplasm of left lung; C77.8 Secondary and unspecified malignant neoplasm of lymph nodes of multiple regions; Z90.5 Acquired absence of kidney
CPT/HCPCS: 36415; 71250; 74176; 80053; 83615; 85025; Q9967

== ENCOUNTER 2020-04-12 08:49 | Outpatient (CLI) | payer MEDICARE, BC, SELFPAY ==
--- NOTE | 2020-04-12 10:02 | ONC FU_ITS ---
[facility] Patient Note Patient: Pratibha Ann Unit #: [id number]: [id number] Dictated By: Raiza BerryDate of Visit: Apr 12, 2020 Onc MED Follow-Up/Prog Note Chief Complaint: Renal cell cancer. History of Present Illness: Mrs Ann is a 79 year-old woman with metastatic renal cell cancer. She had presented in October 2014 with pain in the right flank area and right side of the back. A CT scan of the abdomen/pelvis showed an upper pole mass in the right kidney measuring 3.1 x 4 x 4.4 cm. The appearance was suspicious for neoplasm. There was associated retroperitoneal and retrocrural lymphadenopathy and there were bilateral lower lobe subcentimeter pulmonary nodules. PET/CT on 12/19/2014 showed 4.3 cm FDG avid mass in the right kidney measuring 4.3 cm. There were multiple FDG avid retroperitoneal lymph nodes which included an infrarenal aortic caval node with SUV 7.4. A 9 mm right retrocrural lymph node was FDG negative. There was no portacaval, mediastinal, or supraclavicular adenopathy noted. There were no hepatic or adrenal metastases. There were innumerable subcentimeter pulmonary nodules. An 8 mm nodule in the left lung apex did show FDG uptake with SUV 2.0. The remainder were FDG negative, presumably due to their small size. The appearance was felt to be consistent with pulmonary metastases. She was referred to Dr. Ronni Rapp in [place]. A right renal biopsy on 12/29/2014 showed poorly differentiated carcinoma consistent with a Radha grade 3/4 renal cell carcinoma. On 01/06/2015 she underwent right robotic-assisted laparoscopic radical nephrectomy and right para vena caval lymph node dissection. Pathology showed clear cell renal cell carcinoma, Radha nuclear grade 3. The tumor measured 5.5 cm in maximum dimension. There was extension into the renal sinus adipose tissue and into the wall of the renal vein. There was invasion through the renal capsule into the perinephric adipose tissues. There was involvement of the renal sinus resection margin and the renal vein resection margin. One right perihilar lymph node was benign. Right destiny-vena cava biopsy showed benign adipose tissue with no lymph node identified. Following the surgery, she had continued to have a fair amount of pain in the right side of the abdomen, right flank, and right side of the back. She also had constipation and severe nausea/anorexia. We had not been able to determine a specific cause for the pain or the nausea/anorexia, and thus far she has just continued symptomatic management for it. She eventually did start a trial of therapy with pazopanib following her visit here on 02/15/2015. It was stopped within a short time because of side effects. It was restarted at a reduced dosage (400 mg daily) following her visit in February 2015. She still tolerated it poorly even at the reduced dosage. She had restaging CT scans on 05/12/2015. There was again evidence of innumerable pulmonary nodules bilaterally. These ranged in size from 5-15 mm. The majority showed cavitary necrotic centers. There was a very slight increase in the size of the pulmonary nodules from the previous study. There was extensive mediastinal lymphadenopathy and bilateral necrotic hilar adenopathy. The adenopathy in the abdomen/pelvis was noted to have increased in size and it appeared more confluent. The largest group of confluent necrotic lymph nodes was at the level of the right renal vein measuring 5.7 x 3.8 x 3.8 cm. Overall, there was evidence of significant disease progression. In May 2015 she began a trial of therapy with Torisel. She received her initial treatment on 06/04/2015. She was unable to complete it due to hypersensitivity reaction. As of 06/24/2015 she started a trial of therapy with nivolumab at a standard dosage of 3 mg/kg by IV infusion every 2 weeks. She tolerated it very well, and during this time she had significant improvement in her performance status. Restaging CT scans in July 2015 showed interval marked improvement in the pulmonary metastatic disease and in the bilateral hilar and mediastinal lymphadenopathy and interval moderate decrease in the size and number of retroperitoneal lymph nodes. As of 12/02/2015 she had completed 12 cycles of treatment. Restaging CT scans at that time showed continued decrease in the size and number of bilateral pulmonary metastatic nodules with no evidence of disease progression in the chest. There was also further decrease in the retroperitoneal lymphadenopathy, and no evidence of disease progression in the abdomen/pelvis region. She continued treatment with nivolumab. In January 2016 her treatment was put on hold due to increasing fatigue and musculoskeletal pain. Restaging CT scans on 03/03/2016 showed no evidence of disease progression. There were irregular pulmonary nodules in the upper lobes bilaterally, but they did appear stable. There was no inguinal, retroperitoneal, or mesenteric adenopathy noted. She did have evidence of extensive abdominal aorta and left iliac artery calcific atheromatous changes, but without aneurysm. There were degenerative changes in the lumbar spine. She did report symptomatic improvement with prednisone, and she was able to continue with cycle 18 of nivolumab on 03/09/2016. CT of the chest, abdomen, and pelvis on 09/06/2016 showed stable pulmonary parenchymal nodules compared to previous studies from 03/03/2016 and 11/30/2015. There was no evidence of a neoplastic process within the abdomen or pelvis. She continued treatment with nivolumab. She received cycle 37 on 11/30/2016. On 12/01/2016, the day following her nivolumab infusion, she had an episode of chest pain. Her pain began in the right side of her back and radiated to her chest. She did not have shortness of breath with that episode, but said that she was hypertensive. She took two nitroglycerin and her pain resolved. She did not go to the emergency room. She did see Dr. Millan, who prescribed her an additional blood pressure pill. She indicated that she had experienced 5 or 6 of these type of spells in the last several years. However, at at that point it was opted to put her nivolumab on hold. Restaging CT scans of the chest, abdomen, and pelvis on 12/26/2016 showed no evidence of progressive disease. There were stable subcentimeter 4 5-mm pulmonary nodules noted. There was no mediastinal, abdominal, or pelvic lymphadenopathy. She was then followed on observation/expectant management. She had repeat CT scans of the chest, abdomen, and pelvis on 03/30/2017. There were stable subcentimeter pulmonary nodules which were described as having an inflammatory appearance. There were changes related to the prior nephrectomy. There was no evidence of disease progression in the chest, abdomen, or pelvis. Her surveillance CT scans in September 2017 remained stable. Her other medical illnesses include hypertension and hyperlipidemia. She also has been treated for both cervical cancer and breast cancer. She had smoked for a short time in the past, but she quit at age 27. INTERIM HISTORY: Repeat CT scans on 03/28/2018 showed stable subcentimeter pulmonary nodules dating back to August 2016. There was no other evidence of metastatic disease in the chest, abdomen, or pelvis. With those findings, she continued on observation/expectant management. Restaging CT scans of the chest, abdomen, and pelvis on 10/04/2018 showed no evidence of recurrent or metastatic disease. Her repeat CT scans of the chest, abdomen, and pelvis on 04/08/2019 showed a few tiny subcentimeter pulmonary nodules with pleural nodularity in both lungs, stable compared to prior studies. There was no mediastinal or hilar adenopathy and there was no evidence of metastatic disease in the abdomen or pelvis. Restaging CT scans on 09/30/2019 showed no evidence of a neoplastic process in the chest, abdomen, or pelvis. She continued on observation/expectant management. CT abdomen/pelvis on 12/30/2019 showed no acute findings. There was no evidence of neoplastic process. Restaging imaging was performed on April 08, 2020. She had a CT of the chest abdomen pelvis without contrast. The impressions are right mastectomy and change, negative for acute cardiopulmonary disease, absent right kidney, absent uterus, negative for acute intra-abdominal or pelvic abnormalities. There is no bony metastatic lesions seen. No evidence of neoplastic process. She states overall she is doing well. She continues to have problems with chronic UTIs. She is following with Dr. Whatley for this continuously. She states it got bad over the weekend she started on Cipro and that has helped dramatically. She is planning to refill her every 3-day antibiotic at [facility] [place]. She states she continues to have chronic constipation but the liquid medicine, senna S and [employer] brand laxative have her bowels under control to her satisfaction. She denies any fever or chills. She denies any mouth sores sore throat or difficulty swallowing. She states her breathing is good. She denies chest pain or palpitations. She is had no orthopnea. She states she has significant nausea and dry heaves when the bladder infection starts . She states once the infection is under control the nausea is gone as well. She does have nausea medicines which she does utilize and this does give her some relief. She denies any new pain. She continues to have chronic neuropathy in her legs and feet. She states Dr. Gimenez had increased her amitriptyline to 50 mg at at bedtime. She states this helps her sleep well and is helping with the neuropathy. She does have an appointment to see Dr. Casillas on Sunday for her feet. She denies any other concerns. Her ECOG is 0. Past Medical History: Breast cancer Cervical cancer Hyperlipidemia Hypertension Past Surgical History: Cleft palate Flucevax in 2017 - left deltoid Prevnar 13 in 2015 Port placed in 2015 Right robotic-assisted laparoscopic radical nephrectomy in 2014 Left breast lumpectomy in 1988 Right modified radical mastectomy in 1982 Tonsillectomy in 1946 Allergies: Gabapentin, Sulfa Antibiotics, and Torisel. Medications: Amitriptyline HCl 1 Tablet (of 50 mg) Oral daily Aspirin 1 (81 mg) Tablet Oral daily Atorvastatin Calcium 1 Tablet (of 20 mg) Oral at bedtime Furosemide 1 Tablet (of 40 mg) Oral b.i.d. OLANZapine 1 Tablet (of 2.5 mg) Oral at bedtime Omeprazole 1 Tablet (of 20 mg) Tablet, enteric coated Oral b.i.d. PredniSONE (2.5 mg) Tablet Oral Take as Directed Senna S 2 Tablet (of 8.6-50 mg) Oral t.i.d. Spironolactone 1 Tablet (of 25 mg) Oral daily Stool Softener 1 Tablet (of 100 mg) Oral daily PRN Family History: Ms. Ann's mother at age 81: medical history includes heart failure at age 81 (cause of ). Ms. Ann's father at age 87: medical history includes heart attack (cause of ). Ms. Ann has 1 brother who is alive. She has 5 sisters: 5 alive. Ms. Ann's first sister's medical history includes breast cancer. Another sister's medical history includes ovarian cancer. Father of heart attack age 87. Mother with congestive heart failure at age 81. She has one brother and she had a total of 8 sisters, 3 of whom are . Three of her sisters have diabetes and two have or had heart disease. One was treated for breast cancer and another for ovarian cancer. Social History: Ms. Ann is and she is retired. Ms. Ann quit smoking 47 years ago but had smoked 1.0 pack/day for 5 years. She has no history of drinking. Ms. Ann reports the following support systems: lives with spouse, significant other, family, or friends, lives in own house, supportive family/friends willing to assist with needs, and adequate transportation available for expected visits. Her diet consists of regular meals. She indicates her activity level as: daily activities and light exercise. Review Of Symptoms: Constitutional Denies fevers, chills, night sweats, or weight loss. Eating good and energy is good. Allergic/Immunologic Denies allergies and adverse reactions. ENMT Denies changes in hearing, mouth sores, difficulty or changes in swallowing ability, and/or sinus drainage. Endocrine No diabetes, thyroid disease or hormone replacement. Denies hot flashes or night sweats. Hematologic/Lymphatic Denies easy bruising or bleeding. The patient denies any tender or palpable lymph nodes. Respiratory Denies dyspnea on exertion, chest pain, cough or hemoptysis. Denies orthopnea. Cardiovascular Denies anginal chest pain, palpitations or orthopnea. Gastrointestinal Denies nausea, vomiting, diarrhea, GI bleeding. Denies change in bowel habits and/or stool color, no heartburn or early satiety. Chronic constipation. Genitourinary (F) No hematuria, but has had hesitancy and incontinence. She denies vaginal bleeding, discharge. Musculoskeletal Denies joint pain, swelling or redness. No decreased range of motion. Integumentary Denies chronic rashes, inflammation, ulcerations or skin changes. Neurologic Denies headache, blurred vision, and no areas of focal weakness or numbness. Normal gait. No sensory problems. Psychiatric Denies insomnia, depression, hollie or mood swings. Vital Signs: Performed on Apr 12, 2020 09:04 Height - 66.00 in Weight - 170.4 lbs (HIGH) BSA - 1.87 sq.m BMI - 27.50 Temperature - 98.7 F Pulse - 96 /min Respiration - 16 /min BP - 129/71 mm(hg) O2 Sat - 95 % (LOW) Pain - 0,0 - Fully active, able to carry on all predisease activities without restrictions. (ECOG) Physical Examination: Constitutional Alert, oriented, no acute distress. Skin pink, warm and dry. Head Normocephalic; atraumatic. Eyes Conjunctivae and sclerae are clear and without icterus. Pupils are reactive and equal. Neck Supple without masses or thyromegaly. No jugular venous distension. Hematologic/Lymphatic No petechiae or purpura. No tender or palpable lymph nodes in the cervical, supraclavicular areas. Respiratory Lungs are clear to auscultation without rhonchi or wheezing. Cardiovascular Regular rate and rhythm of heart without murmurs,clicks, gallops or rubs. Chest Chest is symmetric without chest wall deformities. Venous access device is unremarkable. Abdomen Non-tender, non-distended, no masses, ascites or hepatosplenomegaly. Good bowel sounds noted in all quads. No guarding or rebound tenderness. No pulsatile masses. Back/Spine Non-tender to palpation. Extremities No visible deformities, no cyanosis, clubbing or edema. Musculoskeletal No tenderness or swelling, normal range of motion without obvious weakness. Integumentary No rashes or lesions. Neurologic No sensory or motor deficits, normal cerebellar function, normal gait. Psychiatric Alert and oriented times three. Coherent speech. Verbalizes understanding of our discussions today. Laboratory:Test performed on Apr 08, 2020 09:00 LDH (Total) 161 U/L Sodium 130 mmol/L Potassium 3.8 mmol/L Chloride 94 mmol/L CO2 25 mmol/L Anion Gap 14.8 BUN 16 mg/dL Creatinine 1.5 mg/dL Cr Clearance (Est) 38.2300 mL/min Glucose 122 mg/dL Calcium 9.7 mg/dL Protein, Total 6.9 g/dL Albumin 4.3 g/dL Globulin 2.6 g/dL Bilirubin, Total 0.5 mg/dL ALT (SGPT) 18 U/L AST (SGOT) 21 U/L Alkaline Phosphatase 142 IU/L WBC 8.1 10 3/uL RBC 5.09 10 6/uL HGB 15.2 g/dL HCT 46.4 % MCV 91.2 fL MCH 29.9 pg MCHC 32.8 g/dL RDW 13.5 % Platelet Count 340 10 3/cmm MPV 8.9 fL Neutrophils 3.5 10 3/uL Lymphocytes 3.1 10 3/uL Monocytes 0.8 10 3/uL Eosinophils 0.7 10 3/uL Basophils 0.1 10 3/uL Neutrophil % 43.1 % Lymphocyte % 38.1 % Monocyte % 9.6 % Eosinophil % 8.0 % Basophils % 1.0 % NRBC % 0 % Impression: 1. Patient with clear-cell carcinoma of the right kidney, Radha grade 3, stage IV (pT3a, N0, M1). She underwent right robotic-assisted laparoscopic radical nephrectomy on 01/06/2015. 2. Her subsequent management was complicated due to ongoing problems with pain in the flank/back on the right side, constipation, and severe nausea/anorexia. A specific cause for those problems was not determined. Her management at that point was further complicated by numerous medication intolerances. 3. She eventually did start a trial of therapy with pazopanib, but she tolerated it poorly, even at a reduced dosage (400 mg daily), and followup CT scans in April did show evidence of significant disease progression. At that point the pazopanib was stopped. She started a trial of therapy with Torisel on 06/04/2015, but she was unable to complete the initial infusion because of an acute infusion reaction. 4. She then started treatment with nivolumab on 06/24/2015. She has tolerated it very well at a standard dosage of 3 mg/kg by IV infusion every 2 weeks. She had significant improvement in her performance status as well as evidence of significant response by restaging CT scans. 5. In January 2016 her treatment was put on hold due to increasing fatigue and musculoskeletal pain. Restaging CT scans again on 03/03/2016 showed evidence of residual pulmonary nodules in the upper lobes bilaterally, but they did appear stable. There was no evidence of disease progression. In the meantime, she had significant symptomatically improvement with prednisone, and she was able to resume treatment with nivolumab. 6. As of November 2016 Dr Newsome did opt to put her treatment on hold after she had presented to the emergency room with chest pain and hypertension. Her restaging CT scans on 12/26/2016 also showed no evidence of disease progression. She has since then continued observation/expectant management. Her other medical illnesses include: 7. Hypertension. 8. Hyperlipidemia. 9. There is CT evidence of atherosclerotic cardiovascular disease. During follow-up she continued to have some fatigue and she had pain in her lower extremities, though it generally was tolerable on a low dose of prednisone. As of her follow-up visit in February 2018 there was no evidence of disease progression on her restaging CT scans, and she continued on observation/expectant management. She has since then continued to have some fatigue. She has had ongoing problems with residual neuropathy in her legs, which has limited her activity. She did some improvement with physical therapy. She has required ongoing antibiotic therapy for recurrent urinary tract infections. Overall, she has been doing well clinically with no evidence of recurrence/progression of the renal cell cancer. Followup CT of the chest/abdomen/pelvis from 04/08/2020 does not show any evidence of neoplastic process. She continues with observation. Plan: 1. Continue observation/expectant management for the renal cell cancer. 2. Labs and CT of Chest abdomen pelvis from April 08, 2020 were reviewed in detail and a copy was given to Mrs. Ann. Her white count was 8.1, hemoglobin 15.2, platelets 340,000 ANC is 3500. Potassium 3.8 sodium was 130 glucose is 122 creatinine is improved at 1.5 and LFTs are normal. Her alk phos was 142 but she is having some more foot pain . 3. Continue amitriptyline at 50 mg at at bedtime for neuropathy as per Dr. Gimenez. She did not want increase this although she states she continues to have problems with the neuropathy. She states she feels it is stable. 4. She will continue her current bowel regimen. She states she has tried lactulose in the past and it made her vomit every time I check it . 5. We will plan to see her back in 3 months for follow-up with CBC CMP. She will be due for repeat CT of the chest abdomen pelvis in 6 months unless needed otherwise. 6. Mrs. Ann was instructed to contact us in the interim should questions or problems arise. 7. We will refill her antibiotic for UTI to [facility] under the [facility] be program. She does utilize this for chronic UTIs. Signed By: Raiza Berry-, [facility] Reg Newsome MD <<Signature on File>>
== END 2020-04-12 08:50 | disposition home or self-care (01) ==
LOC: ONCMED 08:53
PROVIDERS: PCP Family Medicine; Visit Provider Nurse Practitioner
DX: C64.1 Malignant neoplasm of right kidney, except renal pelvis (principal); C78.01 Secondary malignant neoplasm of right lung; C78.02 Secondary malignant neoplasm of left lung; C77.8 Secondary and unspecified malignant neoplasm of lymph nodes of multiple regions; E78.5 Hyperlipidemia, unspecified; I10 Essential (primary) hypertension; I25.10 Atherosclerotic heart disease of native coronary artery without angina pectoris; Z90.5 Acquired absence of kidney; Z79.899 Other long term (current) drug therapy
CPT/HCPCS: G0463

== ENCOUNTER → 2020-04-22 13:01 | Outpatient (BNVA) | payer MEDICARE, BC, SELFPAY | PROVIDERS: PCP Family Medicine; Visit Provider Nurse Practitioner Family | DX: N39.0 Urinary tract infection, site not specified (principal) | CPT/HCPCS: 81001 ==

== ENCOUNTER 2020-05-07 21:50 | Emergency (ER) | payer MEDICARE, BC, SELFPAY ==
[2020-05-07 21:55] VITALS: BP 151/84; PULSE 105; RESP 14; TEMP 36.4; O2SAT 95; BMI 27.1
--- NOTE | 2020-05-07 22:01 | ED_ITS ---
HPI - Female Genitourinary General: Chief complaint: Urogenital-Female Stated complaint: poss uti Time Seen by Provider: 05/07/20 22:01 Source: patient Mode of arrival: ambulatory Limitations: no limitations History of Present Illness: HPI Narrative: Patient comes in today with complaints of left flank pain and urinary burning. Patient reports that she gets recurrent urinary tract infections. Patient at this time takes fosfomycin every 3 days for prophylaxis antibiotic treatment of chronic urinary cystitis as prescribed by the urology clinic with Dr. Whatley. Patient reports some mild nausea. Patient appears mildly unwell. Patient appears in no acute distress. Patient does have an allergy to sulfa and cephalexin. Patient does see urology routinely for this. Patient reports having only one kidney on the left side due to previous renal carcinoma. MD elicited complaint: dysuria Review of Systems General: Reports: 10 or more systems reviewed and unremarkable except in HPI and below : Reports: flank pain and dysuria PFSH ED PFSH: Medical History (Updated 05/08/20 @ 00:04 by JO ANN Mendiola) Cancer of right kidney Genital atrophy of female Recurrent UTI Retention of urine S/p nephrectomy Surgical History H/O transurethral destruction of bladder lesion S/P mastectomy Status post repair cleft left atrioventricular valve leaflet Family History Father , 87 CAD (coronary artery disease) Mother , 81 CAD (coronary artery disease) Social History Smoking and tobacco status: never smoked Alcohol intake: never Adopted: No Caregiver/support person: No Lives independently: No Household members: spouse Marital status: Current occupational status: retired History of recent travel: No Physical Exam Const: COMMON NORMALS: no acute distress and patient oriented x3 GENERAL APPEARANCE: cooperative HENMT: COMMON NORMALS: normocephalic and Normal external nose present HEAD & SCALP: normal to inspection and normocephalic NOSE: Normal external nose present MOUTH: Normal oral and palatal mucosa present THROAT: posterior oropharynx normal Eye: GENERAL EYE: appearance normal, both eyes and all related structures Neck/C-Spine: COMMON NORMALS: full ROM Lymph: LYMPHATIC: no lymphadenopathy noted Chest: COMMONS NORMALS: normal inspection of the chest Resp: COMMON NORMALS: normal respiratory effort EFFORT & INSPECTION: Yes able to speak in complete sentences Cardio: COMMON NORMALS: regular rate and regular rhythm RATE: regular rate RHYTHM: regular rhythm GI: COMMON NORMALS: non-tender : COMMON NORMALS: Yes no CVA tenderness BLADDER/KIDNEY EXAM: Yes no CVA tenderness Back/Pelvis: COMMON NORMALS: no CVA tenderness and thoracic and lumbar spine normal to inspection Extremity: COMMON NORMALS: normal to inspection Neuro: COMMON NORMALS: patient oriented x3 and moves all extremities Psych: COMMON NORMALS: mental status grossly normal and cooperative Skin: COMMON NORMALS: no rashes or lesions noted GENERAL SKIN EXAM: no rashes or lesions noted Course Vital Signs: Vital signs: Vital Signs Temperature 97.6 F 05/07/20 21:55 Pulse Rate 82 05/07/20 23:27 Respiratory Rate 16 05/07/20 23:27 Blood Pressure 113/76 05/07/20 23:27 Pulse Oximetry 98 05/07/20 23:27 MDM - Female MDM Narrative: Medical decision making narrative: 80-year-old female comes in today with complaints of dysuria. Patient has chronic cystitis which she takes fosfomycin every 3 days for. Patient appears well. Patient appears no acute pain. Exam notes some left CVA tenderness, abdominal tenderness on the left side. Respirations are even lungs are clear to auscultation vital signs are normal. No temperature. Differential diagnosis includes but not limited to urinary tract infection, renal calculi, carcinoma, constipation, vaginitis. Urinalysis noted trace of blood with a trace of white blood cells but also was contaminated with similar amounts of skin cells. CBC noted no elevation in white blood cell count. BMP noted no significant changes from prior results. CT scan of the abdomen and pelvis for renal noted no renal calculi or hydronephrosis. Reviewed the exam with patient with recommendations for continuing medications as directed. Did not recommend changing antibiotic at this time. Recommended follow-up with Dr. Whatley's office for further evaluation and treatment. Did recommend return to the ER for fever or vomiting. Patient reported understanding. Lab Data: Labs: Lab Results 05/07/20 05/07/20 05/07/20 Range/Units 22:22 22:32 22:32 WBC 7.9 (4.0-10.0) 10^3/ uL RBC 4.85 (4.1-5.3) 10^6/u L Hgb 14.4 (11.5-15.3) g/dL Hct 44.6 (37.0-47.0) % MCV 92.0 (81-99) fL MCH 29.7 (28.0-34.0) pg MCHC 32.3 (30.0-36.0) g/dL RDW 13.0 (12.1-15.1) % Plt Count 327 (130-400) 10^3/c mm MPV 8.5 (7.4-10.4) fL Neut % (Auto) 52.3 % Lymph % (Auto) 30.1 % Barbour % (Auto) 11.0 % Eos % (Auto) 5.6 % Baso % (Auto) 0.9 % Neut # (Auto) 4.14 (1.8-7.7) 10^3/u L Lymph # (Auto) 2.4 (0.8-4.8) 10^3/u L Barbour # (Auto) 0.9 (0.2-0.9) 10^3/u L Eos # (Auto) 0.4 (0.0-0.8) 10^3/u L Baso # (Auto) 0.1 (0.0-0.1) 10^3/u L Nucleated RBC % (a uto) 0 % Nucleated RBCs # 0.0 /100WBC Sodium 129 L (136-145) mmol/L Potassium 3.7 (3.5-5.1) mmol/L Chloride 92 L (98-107) mmol/L Carbon Dioxide 28 (22-29) mmol/L Anion Gap 12.7 (5-19) BUN 15 (8-23) mg/dL Creatinine 1.6 H (0.5-0.9) mg/dL Glucose 102 (65-115) mg/dL Calculated Osmolal ity 264 L (285-295) mOsm/k g Calcium 9.7 (8.5-10.5) mg/dL Urine Color Yellow (Yellow) Urine Appearance Clear (CLEAR) Urine pH 6 (5-7) Ur Specific Gravit y 1.015 (1.005-1.030) Urine Protein Neg (Negative) Urine Glucose (UA) Norm (Normal) Urine Ketones Negative (Negative) Urine Blood 2+ H (Negative) Urine Nitrate Negative (Negative) Urine Bilirubin Neg (NEGATIVE) Urine Urobilinogen Norm (Negative) mg/dL Ur Leukocyte Claudia ase Negative (Negative) Urine RBC None (0-2) /hpf Urine WBC 0-4 H (0-5) /hpf Ur Squamous Epith Cells 0-4 H (0-5) Amorphous Sediment Not Reportable Urine Bacteria Trace (NONE) Discharge Plan Discharge Patient Disposition: Home, Self-Care Clinical Impression: Dysuria, Abdominal wall pain in left flank Condition: Stable Prescriptions: No Action aspirin 81 mg tablet,delayed release (DR/EC) 81 mg PO ONCE RF: 0 atorvastatin 20 mg tablet 20 mg PO ONCE RF: 0 hydromorphone 4 mg tablet 4 mg PO Q6H PRNRF: 0 olanzapine 2.5 mg tablet 2.5 mg PO ONCE RF: 0 omeprazole 40 mg capsule,delayed release(DR/EC) 40 mg PO BID RF: 0 spironolactone 25 mg tablet 25 mg PO DAILY RF: 0 furosemide 40 mg tablet 40 mg PO BID RF: 0 amitriptyline 25 mg tablet 50 mg PO DAILY RF: 0 methenamine hippurate 1 gram tablet 1 gm PO BID Qty: 60 RF: 12 Hold Instructions: Medication Not Effective diclofenac sodium [Voltaren] 1 % gel 2 gm TOPICAL QID 30 Days Qty: 100 RF: 0 Premarin 0.625 mg/gram cream 0.625 mg VAGINAL DAILY Qty: 30 RF: 12 ascorbic acid (vitamin C) 1,000 mg tablet 1,000 mg PO BID RF: 0 Monurol 3 gram packet 1 packet PO Q3D Qty: 4 RF: 1 ciprofloxacin HCl 250 mg tablet 500 mg PO BID Qty: 60 RF: 1 Discharge Orders: Discharge Order (Routine); Ordered 05/08/20 Ordered By: Casimiro Riley Referrals: Andrei Millan MD [Primary Care Provider] - Discharge Diet: Usual diet Discharge Activity: Increase activity as tolerated Patient Instructions: Urinary Tract Infection in Women (ED) Activity Restrictions/Additional Instructions: Continue with medications as directed. Follow-up with Dr. Whatley's office on Sunday for further instruction on antibiotic usage. Continue with the fosfomycin the days as directed at this time. Return to the ER for temperature greater than 100.4, or vomiting. Follow-up with primary care in 1 week. Discharge Date/Time: 05/08/20 00:11 Coding Level of Care Code ED Title Inspector for Chg Fwd Exam Comprehensive
[2020-05-07 22:40] LABS: Basophils # 0.1 10^3/uL (0.0-0.1); Basophils % 0.9 %; Eosinophils # 0.4 10^3/uL (0.0-0.8); Eosinophils % 5.6 %; Hematocrit 44.6 % (37.0-47.0); Hemoglobin 14.4 g/dL (11.5-15.3); Lymphocytes # 2.4 10^3/uL (0.8-4.8); Lymphocytes % 30.1 %; Mean Corpuscular HGB Conc 32.3 g/dL (30.0-36.0); Mean Corpuscular Hemoglobin 29.7 pg (28.0-34.0); Mean Platelet Volume 8.5 fL (7.4-10.4); Monocytes # 0.9 10^3/uL (0.2-0.9); Neutrophils # 4.14 10^3/uL (1.8-7.7); Neutrophils % 52.3 %; Nucleated Red Blood Cells % 0 %; Platelet Count 327 10^3/cmm (130-400); Red Blood Count 4.85 10^6/uL (4.1-5.3); White Blood Count 7.9 10^3/uL (4.0-10.0)
[2020-05-07 22:53] LABS: Add Urine Microscopic? YES; Bacteria Urine TRACE; Bilirubin Urine Neg (NEGATIVE); Blood Urine 2+ (Negative); Glucose Urine UA Norm (Normal); Ketones Urine Negative (Negative); Leukocyte Esterase Urine Negative (Negative); Nitrate Urine Negative (Negative); Protein Urine Neg (Negative); Specific Gravity, Urine 1.015 (1.005-1.030); Squamous Epithelial Cell Urine 0-4 (0-5); Urine Appearance Clear (CLEAR); Urine Color Yellow (Yellow); Urobilinogen Urine Norm (Negative); WBC Urine 0-4 /hpf (0-5); pH Urine 6 (5-7)
[2020-05-07 23:02] LABS: Anion Gap 12.7 (5-19); Blood Urea Nitrogen 15 mg/dL (8-23); Calcium 9.7 mg/dL (8.5-10.5); Carbon Dioxide 28 mmol/L (22-29); Chloride 92 mmol/L (98-107); Glucose 102 mg/dL (65-115); Osmolality Calculated 264 mOsm/kg (285-295); Potassium 3.7 mmol/L (3.5-5.1); Sodium 129 mmol/L (136-145)
--- NOTE | 2020-05-07 23:03 | CTR_ITS ---
PROCEDURE INFORMATION: Exam: CT Abdomen And Pelvis Without Contrast Exam date and time: 05/07/2020 11:05 PM Age: 80 years old Clinical indication: Abdominal pain; Flank; Left; Prior surgery; Surgery date: 6+ months; Surgery type: RT kidney removed; Patient HX: HX cervical CA, breast CA, renal CA; Additional info: Left flank pain TECHNIQUE: Imaging protocol: Computed tomography of the abdomen and pelvis without contrast. Radiation optimization: All CT scans at this facility use at least one of these dose optimization techniques: automated exposure control; mA and/or kV adjustment per patient size (includes targeted exams where dose is matched to clinical indication); or iterative reconstruction. COMPARISON: CT chest abd pel wo con 04/08/2020 10:46 AM RADIATION DOSE METRICS: Total DLP (mGy-cm): 1230.68 FINDINGS: Liver: Unremarkable. No mass. Gallbladder and bile ducts: Unremarkable. No visible calcified stones. No ductal dilation. Pancreas: Normal. No ductal dilation. Spleen: Normal. No splenomegaly. Adrenals: Normal. No mass. Kidneys and ureters: Status post right nephrectomy. No visible left hydronephrosis, hydroureter, ureterolithiasis, or nephrolithiasis. Stomach and bowel: Diverticulosis coli, primarily the sigmoid colon, without visible evidence of acute diverticulitis. Nonobstructive bowel pattern. No visible adynamic or reactive ileus. Appendix: The appendix is visualized and is noninflamed. Intraperitoneal space: Unremarkable. No free air. No significant fluid collection. Vasculature: The abdominal aorta is nonaneurysmal. Moderately advanced arterial sclerotic disease. Lymph nodes: Unremarkable. No enlarged lymph nodes. Bladder: Small cystocele. Reproductive: Status post hysterectomy. Bones/joints: No visible acute osseous abnormality. Degenerative disease and degenerative disc disease of the spine most advanced L2/L3 and to a less significant degree L3/4 and L5/S1. Facet arthrosis. Mild scoliosis. Osteopenia. Intraosseous cavernous hemangioma L3. Soft tissues: Status post right mastectomy. Limited assessment of the lung bases without visible evidence of active cardiopulmonary process. Small umbilical hernia containing fat only. CT/CT kidney stone [id number] IMPRESSION: 1. Currently no visible evidence of acute abdominal or pelvic pathologic process. 2. No visible left hydronephrosis, hydroureter, ureterolithiasis, or nephrolithiasis. 3. Other nonurgent, nonemergent, chronic, postoperative, and age related findings as discussed in text above. Radiation Dose CTDIVOL = (mGy): DLP = 1230.68 (mGy-cm)
[2020-05-07 23:27] VITALS: BP 113/76; PULSE 82; RESP 16; O2SAT 98
[2020-05-08 00:09] VITALS: BP 106/63; PULSE 102; RESP 18; O2SAT 96
--- NOTE | 2020-05-10 11:19 | DCPLANNER ---
family independence case manager had message to schedule a follow up appointment for patient with Dr. Whatley. family independence case manager called the office of Dr. Whatley, spoke with Lina, gave clinic patients information. family independence case manager was told that patients information would be printed and reviewed. Clinic will call patient with appointment information.
--- NOTE | 2020-05-11 08:20 | DCPLANNER ---
Patient has a follow up appointment scheduled for Sunday, June 02, 2020 at 1:[address] Whatley. Clinic will call patient with appointment information.
--- NOTE | 2020-06-11 13:00 | DCPLANNER ---
Patient had a follow up appointment for 06.02.[address] Whatley - patient did attend appointment.
== END 2020-05-08 00:11 | disposition home or self-care (01) ==
PROVIDERS: Emergency Provider Nurse Practitioner Family; PCP Family Medicine
DX: R10.9 Unspecified abdominal pain (principal); R30.0 Dysuria; Z79.82 Long term (current) use of aspirin; Z85.528 Personal history of other malignant neoplasm of kidney; Z87.440 Personal history of urinary (tract) infections; Z90.5 Acquired absence of kidney
CPT/HCPCS: 12345; 36415; 74176; 80048; 81001; 81003; 85025; 99282; 99283

== ENCOUNTER 2020-05-31 10:34 | Outpatient (CLI) | payer MEDICARE, BC, SELFPAY ==
[2020-05-31 11:24] LABS: Basophils % 0.4 %; Eosinophils # 0.5 10^3/uL (0.0-0.8); Eosinophils % 5.8 %; Hematocrit 41.4 % (37.0-47.0); Hemoglobin 13.4 g/dL (11.5-15.3); Lymphocytes # 1.7 10^3/uL (0.8-4.8); Lymphocytes % 18.7 %; Mean Corpuscular HGB Conc 32.4 g/dL (30.0-36.0); Mean Corpuscular Hemoglobin 30.4 pg (28.0-34.0); Mean Corpuscular Volume 93.9 fL (81-99); Mean Platelet Volume 8.8 fL (7.4-10.4); Monocytes % 11.6 %; Neutrophils # 5.64 10^3/uL (1.8-7.7); Neutrophils % 63.3 %; Nucleated Red Blood Cells % 0 %; Platelet Count 353 10^3/cmm (130-400); Red Blood Count 4.41 10^6/uL (4.1-5.3); Red Cell Distribution Width 13.8 % (12.1-15.1); White Blood Count 8.9 10^3/uL (4.0-10.0)
[2020-05-31 11:33] LABS: Add Urine Microscopic? YES; Bilirubin Urine Neg (NEGATIVE); Blood Urine 3+ (Negative); Glucose Urine UA Norm (Normal); Ketones Urine Negative (Negative); Leukocyte Esterase Urine Negative (Negative); Nitrate Urine Negative (Negative); Protein Urine Neg (Negative); Urine Appearance SL Hazy (CLEAR); Urine Color Yellow (Yellow); Urobilinogen Urine Norm (Negative); pH Urine 5 (5-7)
[2020-05-31 11:38] LABS: RBC Urine 80-100 /hpf (0-2); WBC Urine 0-4 /hpf (0-5)
[2020-05-31 11:39] LABS: Add Urine Culture? Yes; Bacteria Urine 2+
[2020-05-31 11:57] LABS: Albumin Level 3.8 g/dL (3.5-5.2); Anion Gap 12.3 (5-19); Blood Urea Nitrogen 10 mg/dL (8-23); Calcium 8.8 mg/dL (8.5-10.5); Carbon Dioxide 26 mmol/L (22-29); Chloride 95 mmol/L (98-107); Glucose 113 mg/dL (65-115); Potassium 4.3 mmol/L (3.5-5.1); Sodium 129 mmol/L (136-145)
[2020-05-31 11:57] LABS: Creatinine Urine, Random 64 mg/dL (28-217); Microalbumin Random Urine 14 ug/dL (0-20)
[2020-05-31 12:02] LABS: Microalbum Creatinine Ratio Ur 219 mg/dL (0-20)
[2020-05-31 12:08] LABS: Calcium 8.9 mg/dL (8.5-10.5); Parathyroid Hormone 136.1 pg/mL (15-65)
== END 2020-05-31 10:35 | disposition home or self-care (01) ==
PROVIDERS: PCP Family Medicine; Visit Provider Internal Medicine Nephrology
DX: N18.3 Chronic kidney disease, stage 3 (moderate) (principal)
CPT/HCPCS: 80069; 81001; 81003; 82044; 82310; 83970; 85025

== ENCOUNTER → 2020-06-02 14:32 | Outpatient (BNVA) | payer MEDICARE, BC, SELFPAY | PROVIDERS: PCP Family Medicine; Visit Provider Urology | DX: N39.0 Urinary tract infection, site not specified (principal) | CPT/HCPCS: 81001 ==

== ENCOUNTER 2020-06-04 09:34 | Outpatient (CLI) | payer MEDICARE, BC, SELFPAY ==
--- NOTE | 2020-06-04 09:39 | MM_ITS ---
WS: [id number] LEFT DIGITAL MAMMOGRAPHY WITH CAD CLINICAL INFORMATION: HX OF BREAST CA COMPARISON: 7 31,019 and 2 19,018 TECHNIQUE: 3 views of the left breast were obtained. FINDINGS: The left breast is composed of heterogeneous fibroglandular density tissue, which can limit the detec tion of small underlying mass lesions. Punctate calcification. Stable clustered calcifications. Vascu lar calcifications. No suspicious focal mass, asymmetry, calcifications, or architectural distortion. No evidence of cruz gnancy. MM/[place] [id number] IMPRESSION: BI-RADS: 2-Benign FOLLOW UP: 1 Year Follow-up Recommend return to annual diagnostic mammography.
== END 2020-06-04 09:35 | disposition home or self-care (01) ==
LOC: RADSHAW 09:37
PROVIDERS: PCP Family Medicine; Visit Provider Family Medicine
DX: Z85.3 Personal history of malignant neoplasm of breast (principal)
CPT/HCPCS: 77065

== ENCOUNTER 2020-06-20 14:42 | Emergency (ER) | payer MEDICARE, BC, SELFPAY ==
[2020-06-20 14:51] VITALS: BP 153/86; PULSE 90; RESP 18; TEMP 37.4; O2SAT 94; BMI 27.4
--- NOTE | 2020-06-20 15:26 | CTR_ITS ---
PROCEDURE INFORMATION: Exam: CT Abdomen And Pelvis Without Contrast Exam date and time: 06/20/2020 4:13 PM Age: 80 years old Clinical indication: Abdominal pain; Localized; Prior surgery; Surgery date: 6+ months; Surgery type: R nephrectomy; Patient HX: C/O lower abd/pelvic pain and hematuria TECHNIQUE: Imaging protocol: Computed tomography of the abdomen and pelvis without contrast. Radiation optimization: All CT scans at this facility use at least one of these dose optimization techniques: automated exposure control; mA and/or kV adjustment per patient size (includes targeted exams where dose is matched to clinical indication); or iterative reconstruction. COMPARISON: CT kidney stone [id number] 05/07/2020 11:24 PM RADIATION DOSE METRICS: Total DLP (mGy-cm): 826.92 FINDINGS: Lungs: Limited assessment lung bases without visible evidence of active cardiopulmonary process. Liver: Unremarkable. No mass. Gallbladder and bile ducts: Normal. No calcified stones. No ductal dilation. Pancreas: Normal. No ductal dilation. Spleen: Normal. No splenomegaly. Adrenals: Normal. No mass. Kidneys and ureters: Status post right nephrectomy. Left kidney unremarkable. No visible hydronephrosis or perinephric fluid. No visible left-sided nephrolithiasis. No visible ureterolithiasis. Stomach and bowel: Diverticulosis coli without visible evidence of acute diverticulitis. Nonobstructive bowel pattern. No visible adynamic or reactive ileus. Appendix: The appendix is visualized appears noninflamed. Intraperitoneal space: No visible free fluid in the pelvis. No intraperitoneal ascites. Vasculature: The abdominal aorta is nonaneurysmal. Moderate arterial sclerotic disease. Lymph nodes: No visible active intraperitoneal mesenteric or retroperitoneal lymphadenopathy. Bladder: Assessment of bladder reveals unorganized hemorrhagic clot. No definite visible solid bladder mass or filling defect. No asymmetrical bladder wall thickening identified. Potential for hemorrhagic cystitis. Small cystocele. Reproductive: Status post hysterectomy. Bones/joints: Degenerative disease and degenerative disc disease of the spine most advanced L2/L3, L3/L4, and L5/S1. Scoliosis. Facet arthrosis. Osteopenia. Intraosseous cavernous hemangioma L3. Soft tissues: Small periumbilical hernia containing fat only. Status post right mastectomy. CT/CT abdomen pelvis wo con [id number] IMPRESSION: 1. Assessment of bladder reveals unorganized hemorrhagic clot. No definite visible solid bladder mass or filling defect. No asymmetrical bladder wall thickening identified. Potential for hemorrhagic cystitis. 2. Small cystocele. 3. Status post right nephrectomy. 4. Other nonurgent, nonemergent, chronic, age, and postoperative findings as detailed in text above. Radiation Dose CTDIVOL = (mGy): DLP = 826.92 (mGy-cm)
--- NOTE | 2020-06-20 15:30 | W.ED.FEMALGU ---
HPI - Female Genitourinary General: Chief complaint: Urogenital-Female Stated complaint: bloody urine Time Seen by Provider: 06/20/20 15:24 Source: patient Mode of arrival: ambulatory Limitations: no limitations History of Present Illness: HPI Narrative: 80-year-old female who states she has had hematuria since this morning. Patient is having gross hematuria she states more prominent throughout the day. Patient denies any abdominal pain. She denies any vomiting or diarrhea. She does have a history of renal cancer and had a right kidney removed 5 years ago. Associated symptoms: Deny abdominal pain, headache(s) or nausea Review of Systems Const: Denies: fever(s), chills, body aches or change in appetite Eyes: Denies: blurry vision or eye discomfort ENMT: Denies: throat pain or dental pain Card: Denies: chest pain Resp: Denies: dyspnea GI: Denies: abdominal pain, nausea, vomiting or diarrhea : Reports: hematuria Musc: Denies: neck pain or back pain Skin/Breast: Denies: rash Neuro: Denies: headache(s) Psych: Denies: depression Alvaro/Lymph: Denies: easy bruising All/Imm: Denies: urticaria PFSH ED PFSH: Medical History Cancer of right kidney Genital atrophy of female Recurrent UTI Retention of urine S/p nephrectomy Surgical History H/O transurethral destruction of bladder lesion S/P mastectomy Status post repair cleft left atrioventricular valve leaflet Family History Father , 87 CAD (coronary artery disease) Mother , 81 CAD (coronary artery disease) Social History Smoking and tobacco status: never smoked Alcohol intake: never Adopted: No Caregiver/support person: No Lives independently: No Household members: spouse Marital status: Current occupational status: retired History of recent travel: No Physical Exam Const: COMMON NORMALS: no acute distress, patient oriented x3 and healthy appearing HENMT: COMMON NORMALS: normocephalic and atraumatic HEAD & SCALP: normocephalic and atraumatic Eye: COMMON NORMALS: Equal, round and reactive pupils present and EOMs intact bilaterally PUPIL: Yes Equal, round and reactive pupils present Neck/C-Spine: COMMON NORMALS: full ROM and supple Chest: COMMONS NORMALS: normal inspection of the chest and normal palpation of entire chest wall Resp: COMMON NORMALS: normal respiratory effort, No retractions, No use of accessory muscles and clear to auscultation bilaterally AUSCULTATION: clear to auscultation bilaterally Cardio: COMMON NORMALS: regular rate, regular rhythm and No murmurs present (Cardio) RATE: regular rate RHYTHM: regular rhythm GI: COMMON NORMALS: Normal to inspection, nondistended, normoactive bowel sounds present, Soft to palpation, non-tender and no masses PALPATION: Yes Soft to palpation Extremity: COMMON NORMALS: normal to inspection and full ROM Neuro: COMMON NORMALS: patient oriented x3, moves all extremities and no focal motor deficits Psych: COMMON NORMALS: mental status grossly normal, Normal thought process present and cooperative THOUGHT PROCESS: Normal thought process present Skin: COMMON NORMALS: no rashes or lesions noted and no wounds GENERAL SKIN EXAM: no rashes or lesions noted Course Vital Signs: Vital signs: Vital Signs Temperature 99.4 F 06/20/20 14:51 Pulse Rate 90 06/20/20 14:51 Respiratory Rate 18 06/20/20 14:51 Blood Pressure 153/86 06/20/20 14:51 Pulse Oximetry 94 06/20/20 14:51 MDM - Female MDM Narrative: Medical decision making narrative: Patient presents with hematuria. I did place a catheter in irrigate her [place] until it was clear. Patient is currently on antibiotic for UTI. She is to follow-up with Dr. Whatley and likely needs a cystoscope as well. Patient is well-appearing here and hemoglobin is normal. She is to return if worsening. She understands and agrees to plan. Lab Data: Labs: Lab Results 06/20/20 06/20/20 06/20/20 Range/Units 15:12 15:48 15:48 WBC 5.8 (4.0-10.0) 10^3/ uL RBC 4.56 (4.1-5.3) 10^6/u L Hgb 13.4 (11.5-15.3) g/dL Hct 41.6 (37.0-47.0) % MCV 91.2 (81-99) fL MCH 29.4 (28.0-34.0) pg MCHC 32.2 (30.0-36.0) g/dL RDW 13.3 (12.1-15.1) % Plt Count 337 (130-400) 10^3/c mm MPV 8.5 (7.4-10.4) fL Neut % (Auto) 50.8 % Lymph % (Auto) 29.5 % [place] % (Auto) 11.6 % Eos % (Auto) 6.9 % Baso % (Auto) 0.9 % Neut # (Auto) 2.94 (1.8-7.7) 10^3/u L Lymph # (Auto) 1.7 (0.8-4.8) 10^3/u L [place] # (Auto) 0.7 (0.2-0.9) 10^3/u L Eos # (Auto) 0.4 (0.0-0.8) 10^3/u L Baso # (Auto) 0.1 (0.0-0.1) 10^3/u L Nucleated RBC % (a uto) 0 % Nucleated RBCs # 0.0 /100WBC Sodium 129 L (136-145) mmol/L Potassium 4.2 (3.5-5.1) mmol/L Chloride 93 L (98-107) mmol/L Carbon Dioxide 28 (22-29) mmol/L Anion Gap 12.2 (5-19) BUN 13 (8-23) mg/dL Creatinine 1.3 H (0.5-0.9) mg/dL GFR Calculation Not Reportable Glucose 102 (65-115) mg/dL Calculated Osmolal ity 264 L (285-295) mOsm/k g Calcium 9.3 (8.5-10.5) mg/dL Total Bilirubin 0.4 (0.15-1.2) mg/dL AST 23 (0-32) U/L ALT 12 (0-33) U/L Alkaline Phosphata se 105 (35-105) IU/L Total Protein 6.6 (6.6-8.7) g/dL Albumin 3.7 (3.5-5.2) g/dL Globulin 2.9 (1.3-4.6) g/dL Urine Color Red (Yellow) Urine Appearance Bloody A (CLEAR) Urine pH 7 (5-7) Ur Specific Gravit y 1.015 (1.005-1.030) Urine Protein 3+ H (Negative) Urine Glucose (UA) Norm (Normal) Urine Ketones Negative (Negative) Urine Blood 3+ H (Negative) Urine Nitrate Negative (Negative) Urine Bilirubin Neg (NEGATIVE) Urine Urobilinogen Norm (Negative) mg/dL Ur Leukocyte Claudia ase Negative (Negative) Urine RBC Too numerous to c nt H (0-2) /hpf Urine WBC 15-25 H (0-5) /hpf Ur Squamous Epith Cells 5-10 H (0-5) Amorphous Sediment Not Reportable Urine Bacteria 1+ H (NONE) Urine Mucus 1+ Imaging Data: CT Abd/Pel: Attestation: I personally reviewed and interpreted this imaging study as follows: Radiologist's impression: [place] [address] CT Scan Report Signed Patient: Pratibha Ann Unit #: [id number] : 1940 Age/Sex: 80 / F ADM Date: 06/20/20 Loc: ER Room/Bed: Attending Dr: Ordering Provider/Ordering MD: Jami Stevens MD Date of Service: 06/20/20 Procedure(s): CT abdomen pelvis wo con [id number] Accession Number(s): [id number] Report Number: [id number] PROCEDURE INFORMATION: Exam: CT Abdomen And Pelvis Without Contrast Exam date and time: 06/20/2020 4:13 PM Age: 80 years old Clinical indication: Abdominal pain; Localized; Prior surgery; Surgery date: 6+ months; Surgery type: R nephrectomy; Patient HX: C/O lower abd/pelvic pain and hematuria TECHNIQUE: Imaging protocol: Computed tomography of the abdomen and pelvis without contrast. Radiation optimization: All CT scans at this facility use at least one of these dose optimization techniques: automated exposure control; mA and/or kV adjustment per patient size (includes targeted exams where dose is matched to clinical indication); or iterative reconstruction. COMPARISON: CT kidney stone [id number] 05/07/2020 11:24 PM RADIATION DOSE METRICS: Total DLP (mGy-cm): 826.92 FINDINGS: Lungs: Limited assessment lung bases without visible evidence of active cardiopulmonary process. Liver: Unremarkable. No mass. Gallbladder and bile ducts: Normal. No calcified stones. No ductal dilation. Pancreas: Normal. No ductal dilation. Spleen: Normal. No splenomegaly. Adrenals: Normal. No mass. Kidneys and ureters: Status post right nephrectomy. Left kidney unremarkable. No visible hydronephrosis or perinephric fluid. No visible left-sided nephrolithiasis. No visible ureterolithiasis. Stomach and bowel: Diverticulosis coli without visible evidence of acute diverticulitis. Nonobstructive bowel pattern. No visible adynamic or reactive ileus. Appendix: The appendix is visualized appears noninflamed. Intraperitoneal space: No visible free fluid in the pelvis. No intraperitoneal ascites. Vasculature: The abdominal aorta is nonaneurysmal. Moderate arterial sclerotic disease. Lymph nodes: No visible active intraperitoneal mesenteric or retroperitoneal lymphadenopathy. Bladder: Assessment of bladder reveals unorganized hemorrhagic clot. No definite visible solid bladder mass or filling defect. No asymmetrical bladder wall thickening identified. Potential for hemorrhagic cystitis. Small cystocele. Reproductive: Status post hysterectomy. Bones/joints: Degenerative disease and degenerative disc disease of the spine most advanced L2/L3, L3/L4, and L5/S1. Scoliosis. Facet arthrosis. Osteopenia. Intraosseous cavernous hemangioma L3. Soft tissues: Small periumbilical hernia containing fat only. Status post right mastectomy. CT/CT abdomen pelvis wo con [id number] IMPRESSION: 1. Assessment of bladder reveals unorganized hemorrhagic clot. No definite visible solid bladder mass or filling defect. No asymmetrical bladder wall thickening identified. Potential for hemorrhagic cystitis. 2. Small cystocele. 3. Status post right nephrectomy. 4. Other nonurgent, nonemergent, chronic, age, and postoperative findings as detailed in text above. Discharge Plan Discharge Patient Disposition: Home Clinical Impression: Hematuria Qualifiers: Hematuria type: gross Qualified Code(s): R31.0 - Gross hematuria Condition: Stable Prescriptions: No Action aspirin 81 mg tablet,delayed release (DR/EC) 81 mg PO ONCE RF: 0 atorvastatin 20 mg tablet 20 mg PO DAILY RF: 0 hydromorphone 4 mg tablet 4 mg PO Q6H PRN (Reason: Pain) RF: 0 olanzapine 2.5 mg tablet 2.5 mg PO ONCE RF: 0 spironolactone 25 mg tablet 25 mg PO DAILY RF: 0 furosemide 40 mg tablet 40 mg PO BID RF: 0 diclofenac sodium [Voltaren] 1 % gel 2 gm TOPICAL QID 30 Days Qty: 100 RF: 0 Premarin 0.625 mg/gram cream 0.625 mg VAGINAL DAILY Qty: 30 RF: 12 ciprofloxacin HCl 250 mg tablet 500 mg PO BID Qty: 60 RF: 1 omeprazole 20 mg capsule,delayed release(DR/EC) 20 mg PO DAILY RF: 0 Discharge Orders: Discharge Order (Routine); Ordered 06/20/20 Ordered By: Jami Stevens Referrals: Kapil Whatley MD [Physician] - 1-3 days Andrei Millan MD [Primary Care Provider] - Discharge Diet: Advance as tolerated Discharge Activity: Resume usual activity Patient Instructions: Acute Hematuria (ED) Coding Level of Care Code ED Tool Engine Lathe Set Up Operator for Che Fwd Exam Comprehensive
[2020-06-20 15:46] LABS: Add Urine Microscopic? YES; Bilirubin Urine Neg (NEGATIVE); Blood Urine 3+ (Negative); Glucose Urine UA Norm (Normal); Ketones Urine Negative (Negative); Leukocyte Esterase Urine Negative (Negative); Nitrate Urine Negative (Negative); Protein Urine 3+ (Negative); Specific Gravity, Urine 1.015 (1.005-1.030); Urine Appearance Bloody (CLEAR); Urine Color Red (Yellow); Urobilinogen Urine Norm (Negative); pH Urine 7 (5-7)
[2020-06-20 15:49] LABS: RBC Urine TOO NUMEROUS TO CNT /hpf (0-2)
[2020-06-20 15:50] LABS: Bacteria Urine 1+; Mucus Urine 1+; WBC Urine 15-25 /hpf (0-5)
[2020-06-20 15:52] LABS: Add Urine Culture? Yes
[2020-06-20 15:56] LABS: Basophils # 0.1 10^3/uL (0.0-0.1); Basophils % 0.9 %; Eosinophils # 0.4 10^3/uL (0.0-0.8); Eosinophils % 6.9 %; Hematocrit 41.6 % (37.0-47.0); Hemoglobin 13.4 g/dL (11.5-15.3); Lymphocytes # 1.7 10^3/uL (0.8-4.8); Lymphocytes % 29.5 %; Mean Corpuscular HGB Conc 32.2 g/dL (30.0-36.0); Mean Corpuscular Hemoglobin 29.4 pg (28.0-34.0); Mean Corpuscular Volume 91.2 fL (81-99); Mean Platelet Volume 8.5 fL (7.4-10.4); Monocytes # 0.7 10^3/uL (0.2-0.9); Monocytes % 11.6 %; Neutrophils # 2.94 10^3/uL (1.8-7.7); Neutrophils % 50.8 %; Nucleated Red Blood Cells % 0 %; Platelet Count 337 10^3/cmm (130-400); Red Blood Count 4.56 10^6/uL (4.1-5.3); Red Cell Distribution Width 13.3 % (12.1-15.1); White Blood Count 5.8 10^3/uL (4.0-10.0)
[2020-06-20 16:15] LABS: Alanine Aminotransferase 12 U/L (0-33); Albumin Level 3.7 g/dL (3.5-5.2); Alkaline Phosphatase 105 IU/L (35-105); Anion Gap 12.2 (5-19); Aspartate Amino Transferase 23 U/L (0-32); Blood Urea Nitrogen 13 mg/dL (8-23); Calcium 9.3 mg/dL (8.5-10.5); Carbon Dioxide 28 mmol/L (22-29); Chloride 93 mmol/L (98-107); Globulin 2.9 g/dL (1.3-4.6); Glucose 102 mg/dL (65-115); Osmolality Calculated 264 mOsm/kg (285-295); Potassium 4.2 mmol/L (3.5-5.1); Sodium 129 mmol/L (136-145); Total Bilirubin 0.4 mg/dL (0.15-1.2); Total Protein 6.6 g/dL (6.6-8.7)
--- NOTE | 2020-06-20 19:03 | PC.NURSE ---
Pt bladder vigorously irrigated with 1L NS. Several small clots removed, urine now light peach color. Pt tolerated procedure well.
[2020-06-20 19:45] VITALS: BP 130/66; PULSE 84; RESP 16; O2SAT 98
--- NOTE | 2020-06-23 08:52 | DCPLANNER ---
manager forms had message to schedule a follow up appointment for patient with Dr. Whatley. manager forms called the office of Dr. Whatley, spoke with Guera. manager forms gave clinic patients information, was told that it would be printed and reviewed. Clinic will call patient with appointment information.
--- NOTE | 2020-06-24 11:35 | DCPLANNER ---
Patient has a follow up appointment scheduled for Thursday, June 25, [address] at 8:[address] Whatley. Clinic will call patient with appointment information.
--- NOTE | 2020-07-08 07:47 | DCPLANNER ---
Patient had a follow up appointment scheduled for 06.25.[address] Whatley - patient did attend appointment.
== END 2020-06-20 19:50 | disposition home or self-care (01) ==
PROVIDERS: Emergency Provider Emergency Medicine; PCP Family Medicine
DX: R31.0 Gross hematuria (principal); Z79.82 Long term (current) use of aspirin
CPT/HCPCS: 12345; 36415; 74176; 80053; 81001; 85025; 87077; 87086; 87186; 96361; 96374; 96375; 99282; 99283

== ENCOUNTER → 2020-06-25 08:48 | Outpatient (BNVA) | payer MEDICARE, BC, SELFPAY | PROVIDERS: PCP Family Medicine; Visit Provider Urology | DX: R31.0 Gross hematuria (principal); R33.8 Other retention of urine; N39.0 Urinary tract infection, site not specified | CPT/HCPCS: 81001 ==

== ENCOUNTER 2020-07-08 10:46 | Outpatient (CLI) | payer MEDICARE, BC, SELFPAY ==
[2020-07-08 11:32] LABS: Basophils # 0.1 10^3/uL (0.0-0.1); Basophils % 0.7 %; Eosinophils # 0.3 10^3/uL (0.0-0.8); Eosinophils % 4.3 %; Hematocrit 42.7 % (37.0-47.0); Hemoglobin 13.9 g/dL (11.5-15.3); Lymphocytes # 2.4 10^3/uL (0.8-4.8); Lymphocytes % 35.3 %; Mean Corpuscular HGB Conc 32.6 g/dL (30.0-36.0); Mean Corpuscular Hemoglobin 29.8 pg (28.0-34.0); Mean Corpuscular Volume 91.6 fL (81-99); Monocytes # 0.9 10^3/uL (0.2-0.9); Monocytes % 13.7 %; Neutrophils # 3.07 10^3/uL (1.8-7.7); Neutrophils % 45.7 %; Nucleated Red Blood Cells % 0 %; Platelet Count 331 10^3/cmm (130-400); Red Blood Count 4.66 10^6/uL (4.1-5.3); Red Cell Distribution Width 13.2 % (12.1-15.1); White Blood Count 6.7 10^3/uL (4.0-10.0)
[2020-07-08 11:50] LABS: Alanine Aminotransferase 16 U/L (0-33); Albumin Level 4.2 g/dL (3.5-5.2); Alkaline Phosphatase 118 IU/L (35-105); Anion Gap 15.7 (5-19); Aspartate Amino Transferase 24 U/L (0-32); Blood Urea Nitrogen 16 mg/dL (8-23); Carbon Dioxide 26 mmol/L (22-29); Chloride 91 mmol/L (98-107); Glucose 113 mg/dL (65-115); Osmolality Calculated 265 mOsm/kg (285-295); Potassium 3.7 mmol/L (3.5-5.1); Sodium 129 mmol/L (136-145); Total Bilirubin 0.5 mg/dL (0.15-1.2); Total Protein 7.2 g/dL (6.6-8.7)
--- NOTE | 2020-07-11 13:22 | ONC FU_ITS ---
Dr. Newsome Patient Follow-Up Note Patient: Pratibha Ann Unit #: [id number]: 1940 Dicatated By: Reg Newsome M.D.Date of Visit:Jul 08, 2020 Onc Med Follow-up/Prog Note Chief Complaint: Renal cell cancer. History of Present Illness: This is a 80 year-old woman with metastatic renal cell cancer. She had presented in October 2014 with pain in the right flank area and right side of the back. A CT scan of the abdomen/pelvis showed an upper pole mass in the right kidney measuring 3.1 x 4 x 4.4 cm. The appearance was suspicious for neoplasm. There was associated retroperitoneal and retrocrural lymphadenopathy and there were bilateral lower lobe subcentimeter pulmonary nodules. PET/CT on 12/19/2014 showed 4.3 cm FDG avid mass in the right kidney measuring 4.3 cm. There were multiple FDG avid retroperitoneal lymph nodes which included an infrarenal aortic caval node with SUV 7.4. A 9 mm right retrocrural lymph node was FDG negative. There was no portacaval, mediastinal, or supraclavicular adenopathy noted. There were no hepatic or adrenal metastases. There were innumerable subcentimeter pulmonary nodules. An 8 mm nodule in the left lung apex did show FDG uptake with SUV 2.0. The remainder were FDG negative, presumably due to their small size. The appearance was felt to be consistent with pulmonary metastases. She was referred to Dr. Ronni Rapp in [place]. A right renal biopsy on 12/29/2014 showed poorly differentiated carcinoma consistent with a Radha grade 3/4 renal cell carcinoma. On 01/06/2015 she underwent right robotic-assisted laparoscopic radical nephrectomy and right para vena caval lymph node dissection. Pathology showed clear cell renal cell carcinoma, Radha nuclear grade 3. The tumor measured 5.5 cm in maximum dimension. There was extension into the renal sinus adipose tissue and into the wall of the renal vein. There was invasion through the renal capsule into the perinephric adipose tissues. There was involvement of the renal sinus resection margin and the renal vein resection margin. One right perihilar lymph node was benign. Right destiny-vena cava biopsy showed benign adipose tissue with no lymph node identified. Following the surgery, she had continued to have a fair amount of pain in the right side of the abdomen, right flank, and right side of the back. She also had constipation and severe nausea/anorexia. We had not been able to determine a specific cause for the pain or the nausea/anorexia, and thus far she has just continued symptomatic management for it. She eventually did start a trial of therapy with pazopanib following her visit here on 02/15/2015. It was stopped within a short time because of side effects. It was restarted at a reduced dosage (400 mg daily) following her visit in February 2015. She still tolerated it poorly even at the reduced dosage. She had restaging CT scans on 05/12/2015. There was again evidence of innumerable pulmonary nodules bilaterally. These ranged in size from 5-15 mm. The majority showed cavitary necrotic centers. There was a very slight increase in the size of the pulmonary nodules from the previous study. There was extensive mediastinal lymphadenopathy and bilateral necrotic hilar adenopathy. The adenopathy in the abdomen/pelvis was noted to have increased in size and it appeared more confluent. The largest group of confluent necrotic lymph nodes was at the level of the right renal vein measuring 5.7 x 3.8 x 3.8 cm. Overall, there was evidence of significant disease progression. In May 2015 she began a trial of therapy with Torisel. She received her initial treatment on 06/04/2015. She was unable to complete it due to hypersensitivity reaction. As of 06/24/2015 she started a trial of therapy with nivolumab at a standard dosage of 3 mg/kg by IV infusion every 2 weeks. She tolerated it very well, and during this time she had significant improvement in her performance status. Restaging CT scans in July 2015 showed interval marked improvement in the pulmonary metastatic disease and in the bilateral hilar and mediastinal lymphadenopathy and interval moderate decrease in the size and number of retroperitoneal lymph nodes. As of 12/02/2015 she had completed 12 cycles of treatment. Restaging CT scans at that time showed continued decrease in the size and number of bilateral pulmonary metastatic nodules with no evidence of disease progression in the chest. There was also further decrease in the retroperitoneal lymphadenopathy, and no evidence of disease progression in the abdomen/pelvis region. She continued treatment with nivolumab. In January 2016 her treatment was put on hold due to increasing fatigue and musculoskeletal pain. Restaging CT scans on 03/03/2016 showed no evidence of disease progression. There were irregular pulmonary nodules in the upper lobes bilaterally, but they did appear stable. There was no inguinal, retroperitoneal, or mesenteric adenopathy noted. She did have evidence of extensive abdominal aorta and left iliac artery calcific atheromatous changes, but without aneurysm. There were degenerative changes in the lumbar spine. She did report symptomatic improvement with prednisone, and she was able to continue with cycle 18 of nivolumab on 03/09/2016. CT of the chest, abdomen, and pelvis on 09/06/2016 showed stable pulmonary parenchymal nodules compared to previous studies from 03/03/2016 and 11/30/2015. There was no evidence of a neoplastic process within the abdomen or pelvis. She continued treatment with nivolumab. She received cycle 37 on 11/30/2016. On 12/01/2016, the day following her nivolumab infusion, she had an episode of chest pain. Her pain began in the right side of her back and radiated to her chest. She did not have shortness of breath with that episode, but said that she was hypertensive. She took two nitroglycerin and her pain resolved. She did not go to the emergency room. She did see Dr. Millan, who prescribed her an additional blood pressure pill. She indicated that she had experienced 5 or 6 of these type of spells in the last several years. However, at at that point I did opt to put her nivolumab on hold. Restaging CT scans of the chest, abdomen, and pelvis on 12/26/2016 showed no evidence of progressive disease. There were stable subcentimeter 4 5-mm pulmonary nodules noted. There was no mediastinal, abdominal, or pelvic lymphadenopathy. She was then followed on observation/expectant management. She had repeat CT scans of the chest, abdomen, and pelvis on 03/30/2017. There were stable subcentimeter pulmonary nodules which were described as having an inflammatory appearance. There were changes related to the prior nephrectomy. There was no evidence of disease progression in the chest, abdomen, or pelvis. Her surveillance CT scans in September 2017 remained stable. She continued on observation/expectant management. Her other medical illnesses include hypertension and hyperlipidemia. She also has been treated for both cervical cancer and breast cancer. She had smoked for a short time in the past, but she quit at age 27. INTERIM HISTORY: Repeat CT scans on 03/28/2018 showed stable subcentimeter pulmonary nodules dating back to August 2016. There was no other evidence of metastatic disease in the chest, abdomen, or pelvis. With those findings, she continued on observation/expectant management. Restaging CT scans of the chest, abdomen, and pelvis on 10/04/2018 showed no evidence of recurrent or metastatic disease. Her repeat CT scans of the chest, abdomen, and pelvis on 04/08/2019 showed a few tiny subcentimeter pulmonary nodules with pleural nodularity in both lungs, stable compared to prior studies. There was no mediastinal or hilar adenopathy and there was no evidence of metastatic disease in the abdomen or pelvis. Restaging CT scans on 09/30/2019 showed no evidence of a neoplastic process in the chest, abdomen, or pelvis. CT abdomen/pelvis on 12/30/2019 showed no acute findings. There was no evidence of neoplastic process. She continued on observation/expectant management. She is seen for a scheduled visit. She has been feeling pretty good generally. She says her energy is fair, but she does not have a lot of strength. She is able to do light work and she walks every day. Appetite is not real good. Her weight is down 4 to 5 pounds. She does not have fever or night sweats. She has been on antibiotic prophylaxis with nitrofurantoin for recurrent urinary tract infections. She is due to see Dr. Whatley for follow-up next month. She still reports some pain with urination and she occasionally has hematuria. She has no significant joint or bone pain at this time. She has persistent neuropathy in her feet. Medications: Aspirin 1 (81 mg) Tablet Oral daily, Atorvastatin Calcium 1 Tablet (of 20 mg) Oral at bedtime, Diclofenac Sodium (1 %) Gel (jelly) Transdermal four times a day, Furosemide 1 Tablet (of 40 mg) Oral b.i.d., Nitrofurantoin Monohyd Macro 1 (100 mg) Capsule Oral b.i.d., OLANZapine 1 Tablet (of 2.5 mg) Oral at bedtime, Omeprazole 1 Tablet (of 20 mg) Tablet, enteric coated Oral b.i.d., PredniSONE (2.5 mg) Tablet Oral Take as Directed, Premarin Cream Vaginal, Senna S 2 Tablet (of 8.6-50 mg) Oral t.i.d., Spironolactone 1 Tablet (of 25 mg) Oral daily, Stool Softener 1 Tablet (of 100 mg) Oral daily PRN Allergies: Gabapentin, Sulfa Antibiotics, and Torisel. Review of Systems: Constitutional - Her energy is fair, she still does not have a lot of strength. She is doing light work and she walks every day. Appetite is not real good. Her weight is down 4 to 5 pounds. She does not have fever or night sweats. ECOG score is 1, ENMT - No sinus congestion/drainage. No mouth sores. No sore throat or difficulty swallowing, Hematologic/Lymphatic - No abnormal bruising or bleeding, Respiratory - No shortness of breath. No cough. No pleuritic pain or hemoptysis, Cardiovascular - No angina pain. No palpitations, Gastrointestinal - She has nausea associated with urinary tract infections.. No heartburn or acid reflux. She has chronic constipation. No blood in the stool or black stools, Genitourinary (F) - She has had recurrent urinary tract infection. She has some pain with urination and she occasionally has hematuria. No urinary frequency. No urgency or incontinence, Musculoskeletal - No joint or bone pain, Neurologic - No headache. She sometimes has dizziness. She has neuropathy in her feet, Psychiatric - She has some depression. She does not sleep well at night. Vital Signs: Performed on Jul 08, 2020 12:36 Height - 66.00 in Weight - 165.6 lbs (LOW) BSA - 1.85 sq.m BMI - 26.73 Temperature - 97.6 F (LOW) Pulse - 87 /min Respiration - 17 /min BP - 127/66 mm(hg) O2 Sat - 96 % Pain - 0 Physical Examination: Constitutional - She looks pretty good generally, Eyes - Sclerae nonicteric. Conjunctivae clear, ENMT - No lesions noted in the oral cavity, Hematologic/Lymphatic - No cervical, clavicular, or axillary adenopathy, Respiratory - Lungs sound clear with good air movement bilaterally, Cardiovascular - Heart rhythm is regular. There is no gallop or rub noted, Abdomen - Soft. Liver and spleen are not enlarged. There is no abdominal mass or ascites noted and there is no inguinal adenopathy, Extremities - No edema, Neurologic - No focal neurologic deficits noted. Lab/Imaging: Test performed on Jul 08, 2020 11:03 Sodium 129 mmol/L Potassium 3.7 mmol/L Chloride 91 mmol/L CO2 26 mmol/L Anion Gap 15.7 BUN 16 mg/dL Creatinine 1.5 mg/dL Cr Clearance (Est) 36.65 mL/min Glucose 113 mg/dL Calcium 9.0 mg/dL Protein, Total 7.2 g/dL Albumin 4.2 g/dL Globulin 3.0 g/dL Bilirubin, Total 0.5 mg/dL ALT (SGPT) 16 U/L AST (SGOT) 24 U/L Alkaline Phosphatase 118 IU/L WBC 6.7 10 3/uL RBC 4.66 10 6/uL HGB 13.9 g/dL HCT 42.7 % MCV 91.6 fL MCH 29.8 pg MCHC 32.6 g/dL RDW 13.2 % Platelet Count 331 10 3/cmm MPV 9.0 fL Neutrophils 3.07 10 3/uL Lymphocytes 2.4 10 3/uL Monocytes 0.9 10 3/uL Eosinophils 0.3 10 3/uL Basophils 0.1 10 3/uL Neutrophil % 45.7 % Lymphocyte % 35.3 % Monocyte % 13.7 % Eosinophil % 4.3 % Basophils % 0.7 % NRBC % 0 % Impression: 1. Patient with clear-cell carcinoma of the right kidney, Radha grade 3, stage IV (pT3a, N0, M1). She underwent right robotic-assisted laparoscopic radical nephrectomy on 01/06/2015. 2. Her subsequent management was complicated due to ongoing problems with pain in the flank/back on the right side, constipation, and severe nausea/anorexia. I was not able to identify any specific cause for those problems. Her management at that point was further complicated by numerous medication intolerances. 3. She eventually did start a trial of therapy with pazopanib, but she tolerated it poorly, even at a reduced dosage (400 mg daily), and followup CT scans in April did show evidence of significant disease progression. At that point the pazopanib was stopped. She started a trial of therapy with Torisel on 06/04/2015, but she was unable to complete the initial infusion because of an acute infusion reaction. 4. She then started treatment with nivolumab on 06/24/2015. She has tolerated it very well at a standard dosage of 3 mg/kg by IV infusion every 2 weeks. She had significant improvement in her performance status as well as evidence of significant response by restaging CT scans. 5. In January 2016 her treatment was put on hold due to increasing fatigue and musculoskeletal pain. Restaging CT scans again on 03/03/2016 showed evidence of residual pulmonary nodules in the upper lobes bilaterally, but they did appear stable. There was no evidence of disease progression. In the meantime, she had significant symptomatically improvement with prednisone, and she was able to resume treatment with nivolumab. 6. As of November 2016 I did opt to put her treatment on hold after she had presented to the emergency room with chest pain and hypertension. Her restaging CT scans on 12/26/2016 also showed no evidence of disease progression. She was then followed on observation/expectant management. Her other medical illnesses include: 7. Hypertension. 8. Hyperlipidemia. 9. There is CT evidence of atherosclerotic cardiovascular disease. During follow-up she has continued to have some fatigue and she has had pain in her lower extremities, for which she has continued low-dose prednisone. She also has had recurrent urinary tract infections, for which she was placed on prophylaxis with nitrofurantoin. However, as of December 2019 there had been no evidence of recurrence on her restaging CT scans, and overall she has been doing well clinically with no evidence of recurrence/progression of the renal cell cancer. Plan: She remains on observation/expectant management for the renal cell cancer. She has wanting to try gabapentin again for her neuropathy pain. She was started at 100 mg 2 or 3 times a day, as tolerated. She is going to stop prednisone now. She will be scheduled for a follow-up visit with restaging CT scans in 3 months. In the meantime, as her Port-A-Cath has not been functional in quite some time, she will be given the option to have it removed. Signed By: Reg Newsome M.D. <<Signature on File>>
== END 2020-07-08 10:47 | disposition home or self-care (01) ==
LOC: ONCMED 10:48
PROVIDERS: PCP Family Medicine; Visit Provider Internal Medicine Medical Oncology
DX: C64.1 Malignant neoplasm of right kidney, except renal pelvis (principal); Z90.5 Acquired absence of kidney; R53.83 Other fatigue; M79.605 Pain in left leg; M79.604 Pain in right leg; I10 Essential (primary) hypertension; E78.5 Hyperlipidemia, unspecified; I25.10 Atherosclerotic heart disease of native coronary artery without angina pectoris; G62.9 Polyneuropathy, unspecified; Z92.21 Personal history of antineoplastic chemotherapy; Z87.440 Personal history of urinary (tract) infections; Z79.52 Long term (current) use of systemic steroids
CPT/HCPCS: 36415; 80053; 85025; 99214

== ENCOUNTER → 2020-08-03 14:19 | Outpatient (BNVA) | payer MEDICARE, BC, SELFPAY | PROVIDERS: PCP Family Medicine; Visit Provider Urology | DX: N39.0 Urinary tract infection, site not specified (principal) | CPT/HCPCS: 81001 ==

== ENCOUNTER → 2020-09-14 14:11 | Outpatient (BNVA) | payer MEDICARE, BC, SELFPAY | PROVIDERS: PCP Family Medicine; Visit Provider Urology | DX: N39.0 Urinary tract infection, site not specified (principal) | CPT/HCPCS: 81003 ==

== ENCOUNTER 2020-10-07 08:03 | Outpatient (CLI) | payer MEDICARE, BC, SELFPAY ==
--- NOTE | 2020-10-07 08:18 | CT_ITS ---
WS: [id number] CT CHEST, ABDOMEN AND PELVIS WITHOUT CONTRAST. HISTORY: RENAL CELL CANCER TECHNIQUE: Contiguous 5 mm axial imaging performed through the chest, abdomen and pelvis without IV c ontrast, oral contrast has been provided. Coronal and sagittal reformats chest. Coronal and sagittal reformats through the abdomen and pelvis. All CT scans at [facility] use at least one of these dose optimization techniques: automated exposure control; mA and/or kV adjustment per patient s ize (includes targeted exams where dose is matched to clinical indication); or iterative reconstructi on. CONTRAST: None DLP: 1238.45 mGy.cm COMPARISON: 06/20/2020 and 04/08/[address]: Scattered areas of atelectasis and pleural thickening and interstitial thickening bilateral ly. These changes were present on 04/08/2020 and 09/30/2019 with no progression. No new or enlarging no dules. Mild atherosclerosis aorta. Pulmonary artery is top normal. Heart size is normal with no peric ardial or pleural effusion. Small hiatal hernia. Prior RIGHT mastectomy. Abdomen CT: Unenhanced liver is normal. Gallbladder contains small foci of low density which may be s tones containing fat or air. No pericholecystic fluid. Pancreas and spleen are negative. Prior RIGHT nephrectomy with no recurrent mass at the renal bed. Normal size LEFT kidney with no obstruction. Mod erate atherosclerosis aorta. No adenopathy or ascites. Ventral wall abdominal hernia. No GI tract obstruction. The appendix is normal. Numerous sigmoid diverticula without acute diverticu litis. Pelvic CT: Small cystocele. Urinary bladder is otherwise negative. No mass. No free fluid or adenopat hy. Osteopenia. Degenerative disc disease at L2-3. L3 hemangioma. CT/CT chest abd pel wo con IMPRESSION: 1. Status post RIGHT nephrectomy with no recurrent mass at the renal bed. 2. No evidence for metastatic disease to the chest, abdomen or pelvis. 3. Sigmoid diverticulosis. 4. Small cystocele. Bladder is otherwise negative.
[2020-10-07] MEDS: iohexol 300 mg/mL 50 mL Btl PO (09:04)
[2020-10-07 09:09] LABS: Basophils # 0.1 10^3/uL (0.0-0.1); Eosinophils # 0.4 10^3/uL (0.0-0.8); Eosinophils % 6.3 %; Hematocrit 43.7 % (37.0-47.0); Hemoglobin 14.2 g/dL (11.5-15.3); Lymphocytes # 2.2 10^3/uL (0.8-4.8); Lymphocytes % 37.3 %; Mean Corpuscular HGB Conc 32.5 g/dL (30.0-36.0); Mean Corpuscular Volume 92.2 fL (81-99); Monocytes # 0.7 10^3/uL (0.2-0.9); Monocytes % 11.3 %; Neutrophils # 2.64 10^3/uL (1.8-7.7); Neutrophils % 43.9 %; Nucleated Red Blood Cells % 0 %; Platelet Count 323 10^3/cmm (130-400); Red Blood Count 4.74 10^6/uL (4.1-5.3); Red Cell Distribution Width 13.7 % (12.1-15.1)
[2020-10-07 09:31] LABS: Alanine Aminotransferase 15 U/L (0-33); Alkaline Phosphatase 130 IU/L (35-105); Aspartate Amino Transferase 23 U/L (0-32); Blood Urea Nitrogen 18 mg/dL (8-23); Calcium 9.7 mg/dL (8.5-10.5); Carbon Dioxide 30 mmol/L (22-29); Chloride 97 mmol/L (98-107); Globulin 3.5 g/dL (1.3-4.6); Glucose 96 mg/dL (65-115); Lactate Dehydrogenase 188 U/L (135-214); Osmolality Calculated 282 mOsm/kg (285-295); Sodium 135 mmol/L (136-145); Total Bilirubin 0.5 mg/dL (0.15-1.2); Total Protein 7.5 g/dL (6.6-8.7)
== END 2020-10-07 08:04 | disposition home or self-care (01) ==
LOC: RAD 08:06
PROVIDERS: PCP Family Medicine; Visit Provider Internal Medicine Medical Oncology
DX: C64.1 Malignant neoplasm of right kidney, except renal pelvis (principal); Z90.5 Acquired absence of kidney; K57.30 Diverticulosis of large intestine without perforation or abscess without bleeding; N81.10 Cystocele, unspecified
CPT/HCPCS: 36415; 71250; 74176; 80053; 83615; 85025

== ENCOUNTER 2020-10-11 11:39 | Outpatient (CLI) | payer MEDICARE, BC, SELFPAY ==
--- NOTE | 2020-10-15 14:29 | ONC FU_ITS ---
Dr. Newsome Patient Follow-Up Note Patient: Pratibha Ann Unit #: [id number]: [id number] Dicatated By: Reg Newsome M.D.Date of Visit:Oct 11, 2020 Onc Med Follow-up/Prog Note Chief Complaint: Renal cell cancer. History of Present Illness: This is a 80 year-old woman with metastatic renal cell cancer. She had presented in October 2014 with pain in the right flank area and right side of the back. A CT scan of the abdomen/pelvis showed an upper pole mass in the right kidney measuring 3.1 x 4 x 4.4 cm. The appearance was suspicious for neoplasm. There was associated retroperitoneal and retrocrural lymphadenopathy and there were bilateral lower lobe subcentimeter pulmonary nodules. PET/CT on 12/19/2014 showed 4.3 cm FDG avid mass in the right kidney measuring 4.3 cm. There were multiple FDG avid retroperitoneal lymph nodes which included an infrarenal aortic caval node with SUV 7.4. A 9 mm right retrocrural lymph node was FDG negative. There was no portacaval, mediastinal, or supraclavicular adenopathy noted. There were no hepatic or adrenal metastases. There were innumerable subcentimeter pulmonary nodules. An 8 mm nodule in the left lung apex did show FDG uptake with SUV 2.0. The remainder were FDG negative, presumably due to their small size. The appearance was felt to be consistent with pulmonary metastases. She was referred to Dr. Ronni Rapp in [place]. A right renal biopsy on 12/29/2014 showed poorly differentiated carcinoma consistent with a Radha grade 3/4 renal cell carcinoma. On 01/06/2015 she underwent right robotic-assisted laparoscopic radical nephrectomy and right para vena caval lymph node dissection. Pathology showed clear cell renal cell carcinoma, Radha nuclear grade 3. The tumor measured 5.5 cm in maximum dimension. There was extension into the renal sinus adipose tissue and into the wall of the renal vein. There was invasion through the renal capsule into the perinephric adipose tissues. There was involvement of the renal sinus resection margin and the renal vein resection margin. One right perihilar lymph node was benign. Right destiny-vena cava biopsy showed benign adipose tissue with no lymph node identified. Following the surgery, she had continued to have a fair amount of pain in the right side of the abdomen, right flank, and right side of the back. She also had constipation and severe nausea/anorexia. We had not been able to determine a specific cause for the pain or the nausea/anorexia, and thus far she has just continued symptomatic management for it. She eventually did start a trial of therapy with pazopanib following her visit here on 02/15/2015. It was stopped within a short time because of side effects. It was restarted at a reduced dosage (400 mg daily) following her visit in February 2015. She still tolerated it poorly even at the reduced dosage. She had restaging CT scans on 05/12/2015. There was again evidence of innumerable pulmonary nodules bilaterally. These ranged in size from 5-15 mm. The majority showed cavitary necrotic centers. There was a very slight increase in the size of the pulmonary nodules from the previous study. There was extensive mediastinal lymphadenopathy and bilateral necrotic hilar adenopathy. The adenopathy in the abdomen/pelvis was noted to have increased in size and it appeared more confluent. The largest group of confluent necrotic lymph nodes was at the level of the right renal vein measuring 5.7 x 3.8 x 3.8 cm. Overall, there was evidence of significant disease progression. In May 2015 she began a trial of therapy with Torisel. She received her initial treatment on 06/04/2015. She was unable to complete it due to hypersensitivity reaction. As of 06/24/2015 she started a trial of therapy with nivolumab at a standard dosage of 3 mg/kg by IV infusion every 2 weeks. She tolerated it very well, and during this time she had significant improvement in her performance status. Restaging CT scans in July 2015 showed interval marked improvement in the pulmonary metastatic disease and in the bilateral hilar and mediastinal lymphadenopathy and interval moderate decrease in the size and number of retroperitoneal lymph nodes. As of 12/02/2015 she had completed 12 cycles of treatment. Restaging CT scans at that time showed continued decrease in the size and number of bilateral pulmonary metastatic nodules with no evidence of disease progression in the chest. There was also further decrease in the retroperitoneal lymphadenopathy, and no evidence of disease progression in the abdomen/pelvis region. She continued treatment with nivolumab. In January 2016 her treatment was put on hold due to increasing fatigue and musculoskeletal pain. Restaging CT scans on 03/03/2016 showed no evidence of disease progression. There were irregular pulmonary nodules in the upper lobes bilaterally, but they did appear stable. There was no inguinal, retroperitoneal, or mesenteric adenopathy noted. She did have evidence of extensive abdominal aorta and left iliac artery calcific atheromatous changes, but without aneurysm. There were degenerative changes in the lumbar spine. She did report symptomatic improvement with prednisone, and she was able to continue with cycle 18 of nivolumab on 03/09/2016. CT of the chest, abdomen, and pelvis on 09/06/2016 showed stable pulmonary parenchymal nodules compared to previous studies from 03/03/2016 and 11/30/2015. There was no evidence of a neoplastic process within the abdomen or pelvis. She continued treatment with nivolumab. She received cycle 37 on 11/30/2016. On 12/01/2016, the day following her nivolumab infusion, she had an episode of chest pain. Her pain began in the right side of her back and radiated to her chest. She did not have shortness of breath with that episode, but said that she was hypertensive. She took two nitroglycerin and her pain resolved. She did not go to the emergency room. She did see Dr. Millan, who prescribed her an additional blood pressure pill. She indicated that she had experienced 5 or 6 of these type of spells in the last several years. However, at that point I did opt to put her nivolumab on hold. Restaging CT scans of the chest, abdomen, and pelvis on 12/26/2016 showed no evidence of progressive disease. There were stable subcentimeter 4 5-mm pulmonary nodules noted. There was no mediastinal, abdominal, or pelvic lymphadenopathy. She was then followed on observation/expectant management. She had repeat CT scans of the chest, abdomen, and pelvis on 03/30/2017. There were stable subcentimeter pulmonary nodules which were described as having an inflammatory appearance. There were changes related to the prior nephrectomy. There was no evidence of disease progression in the chest, abdomen, or pelvis. Her surveillance CT scans in September 2017 remained stable, and she continued on observation/expectant management. During subsequent follow-up her overall clinical status remained stable. She was able to gradually taper off prednisone. As of December [address] scans had shown no evidence of recurrence/progression of the renal cell cancer. Her other medical illnesses include hypertension and hyperlipidemia. She also has been treated for both cervical cancer and breast cancer. She had smoked for a short time in the past, but she quit at age 27. INTERIM HISTORY: CT scans of the chest, abdomen, and pelvis on 10/07/2020 showed previous right nephrectomy with no evidence of recurrent mass at the renal bed. There is no evidence of metastatic disease to the chest, abdomen, or pelvis. She is seen for a scheduled visit. She has been feeling okay. Her energy has been fair. She is able to do light work. ECOG score is 1. She does complain that she has no appetite and that she has continued to lose weight. Some of that she attributes to her teeth having been pulled. She does not have her dentures yet. She does not have fever or night sweats. She has no shortness of breath, cough, or chest pain. She sometimes has nausea. Her bowel function has improved since she started eating Cream of Wheat every day for breakfast. She has on antibiotic prophylaxis for urinary tract infection. She currently has no complaints. She has had some increasing joint pains and she has been off prednisone. Her left foot, in particular, has been bothering her more. She also has neuropathy pain in her legs and feet. Medications: Atorvastatin Calcium 1 Tablet (of 20 mg) Oral at bedtime, Diclofenac Sodium (1 %) Gel (jelly) Transdermal four times a day, Furosemide 1 Tablet (of 40 mg) Oral daily, Nitrofurantoin Monohyd Macro 1 (100 mg) Capsule Oral b.i.d., OLANZapine 1 Tablet (of 2.5 mg) Oral at bedtime, Omeprazole 1 Tablet (of 20 mg) Tablet, enteric coated Oral b.i.d., Premarin Cream Vaginal, Senna S 2 Tablet (of 8.6-50 mg) Oral t.i.d., Spironolactone 1 Tablet (of 25 mg) Oral daily, Stool Softener 1 Tablet (of 100 mg) Oral daily PRN Allergies: Gabapentin, Sulfa Antibiotics, and Torisel. Review of Systems: Constitutional - Her energy is fair. She is able to do light work. She complains that she has no appetite. She continues to lose weight, but some of that she attributes to her teeth having been pulled. She has no fever, night sweats, or hot flashes. ECOG score is 1, ENMT - No sinus congestion/drainage. No mouth sores. No sore throat or difficulty swallowing, Hematologic/Lymphatic - No abnormal bruising or bleeding, Respiratory - No shortness of breath. No cough. No pleuritic pain or hemoptysis, Cardiovascular - No angina pain. No palpitations, Gastrointestinal - She sometimes has nausea. No heartburn or acid reflux. Her bowel function has been better since she started eating Cream of Wheat every day for breakfast. No blood in the stool or black stools, Genitourinary (F) - She has on daily antibiotic prophylaxis for urinary tract infection. No dysuria or hematuria. No urinary frequency. No urgency or incontinence, Musculoskeletal - The pain in her left foot has been getting worse. Her joint pain generally has increased somewhat since she has been off prednisone, Integumentary - No skin rash, Neurologic - No headache. She has dizziness if she gets up too fast. She also has neuropathy pain in her legs and feet, Psychiatric - She has some depression. She does not sleep well at night. Vital Signs: Performed on Oct 11, 2020 13:25 Height - 66.00 in Weight - 160.6 lbs (LOW) BSA - 1.82 sq.m BMI - 25.92 Temperature - 98.5 F Pulse - 96 /min Respiration - 18 /min BP - 119/70 mm(hg) O2 Sat - 97 % Pain - 0 Physical Examination: Constitutional - She looks pretty good generally, Eyes - Sclerae nonicteric. Conjunctivae clear, ENMT - No lesions noted in the oral cavity, Hematologic/Lymphatic - No cervical, clavicular, or axillary adenopathy, Respiratory - Lungs sound clear with good air movement bilaterally, Cardiovascular - Heart rhythm is regular. There is no gallop or rub noted, Abdomen - Soft. Liver and spleen are not enlarged. There is no abdominal mass or ascites noted and there is no inguinal adenopathy, Extremities - No edema. There is slight ulnar deviation of the left great toe, Neurologic - No focal neurologic deficits noted. Lab/Imaging: CBC shows hemoglobin 14.2 g, white blood cell count 6000, and platelet count 323,000. Comprehensive metabolic profile shows BUN 18 and creatinine 1.7 mg/dL. Alkaline phosphatase is slightly elevated at 130/105 U/L. The bilirubin and the other liver enzymes are normal. LDH is normal at 188 U/L. Impression: 1. Patient with clear-cell carcinoma of the right kidney, Radha grade 3, stage IV (pT3a, N0, M1). She underwent right robotic-assisted laparoscopic radical nephrectomy on 01/06/2015. 2. Her subsequent management was complicated due to ongoing problems with pain in the flank/back on the right side, constipation, and severe nausea/anorexia. I was not able to identify any specific cause for those problems. Her management at that point was further complicated by numerous medication intolerances. 3. She eventually did start a trial of therapy with pazopanib, but she tolerated it poorly, even at a reduced dosage (400 mg daily), and followup CT scans in April did show evidence of significant disease progression. At that point the pazopanib was stopped. She started a trial of therapy with Torisel on 06/04/2015, but she was unable to complete the initial infusion because of an acute infusion reaction. 4. She then started treatment with nivolumab on 06/24/2015. She has tolerated it very well at a standard dosage of 3 mg/kg by IV infusion every 2 weeks. She had significant improvement in her performance status as well as evidence of significant response by restaging CT scans. 5. In January 2016 her treatment was put on hold due to increasing fatigue and musculoskeletal pain. Restaging CT scans again on 03/03/2016 showed evidence of residual pulmonary nodules in the upper lobes bilaterally, but they did appear stable. There was no evidence of disease progression. In the meantime, she had significant symptomatically improvement with prednisone, and she was able to resume treatment with nivolumab. 6. As of November 2016 I did opt to put her treatment on hold after she had presented to the emergency room with chest pain and hypertension. Her restaging CT scans on 12/26/2016 also showed no evidence of disease progression. She was then followed on observation/expectant management. Her other medical illnesses include: 7. Hypertension. 8. Hyperlipidemia. 9. There is CT evidence of atherosclerotic cardiovascular disease. During follow-up she has continued to have some fatigue and she has had pain in her lower extremities. She initially had continue low-dose prednisone, which she eventually did taper off of it. She has remained on prophylaxis for urinary tract infection. Overall, though, she has been doing well clinically. Thus far there has been no evidence of recurrence/progression of the renal cell cancer. Plan: She remains on observation/expectant management for the renal cell cancer. She would like to increase her bedtime olanzapine dosage to 5 mg. Her medications otherwise remain the same. She will be scheduled for a follow-up visit in 3 months. Signed By: Reg Newsome M.D. <<Signature on File>>
== END 2020-10-11 11:40 | disposition home or self-care (01) ==
LOC: ONCMED 11:41
PROVIDERS: PCP Family Medicine; Visit Provider Internal Medicine Medical Oncology
DX: Z08 Encounter for follow-up examination after completed treatment for malignant neoplasm (principal); Z85.528 Personal history of other malignant neoplasm of kidney; R53.83 Other fatigue; G57.93 Unspecified mononeuropathy of bilateral lower limbs; Z90.5 Acquired absence of kidney; Z92.21 Personal history of antineoplastic chemotherapy; I10 Essential (primary) hypertension; E78.5 Hyperlipidemia, unspecified; I25.10 Atherosclerotic heart disease of native coronary artery without angina pectoris; Z79.2 Long term (current) use of antibiotics
CPT/HCPCS: 99214

== ENCOUNTER → 2020-11-23 14:37 | Outpatient (BNVA) | payer MEDICARE, BC, SELFPAY | PROVIDERS: PCP Family Medicine; Visit Provider Urology | DX: N39.0 Urinary tract infection, site not specified (principal); N94.9 Unspecified condition associated with female genital organs and menstrual cycle | CPT/HCPCS: 81003 ==

== ENCOUNTER 2020-11-25 14:51 | Outpatient (CLI) | payer MEDICARE, BC, SELFPAY ==
[2020-11-25 15:37] LABS: Basophils # 0.1 10^3/uL (0.0-0.1); Basophils % 0.8 %; Eosinophils # 0.6 10^3/uL (0.0-0.8); Eosinophils % 6.2 %; Hematocrit 47.2 % (37.0-47.0); Hemoglobin 15.2 g/dL (11.5-15.3); Lymphocytes # 3.7 10^3/uL (0.8-4.8); Lymphocytes % 38.4 %; Mean Corpuscular HGB Conc 32.2 g/dL (30.0-36.0); Mean Corpuscular Hemoglobin 30.5 pg (28.0-34.0); Mean Corpuscular Volume 94.8 fL (81-99); Monocytes % 9.9 %; Neutrophils # 4.31 10^3/uL (1.8-7.7); Neutrophils % 44.4 %; Nucleated Red Blood Cells % 0 %; Platelet Count 350 10^3/cmm (130-400); Red Blood Count 4.98 10^6/uL (4.1-5.3); Red Cell Distribution Width 12.9 % (12.1-15.1); White Blood Count 9.7 10^3/uL (4.0-10.0)
[2020-11-25 16:39] LABS: Albumin Level 4.2 g/dL (3.5-5.2); Anion Gap 16.2 (5-19); Blood Urea Nitrogen 20 mg/dL (8-23); Carbon Dioxide 29 mmol/L (22-29); Chloride 97 mmol/L (98-107); Glucose 100 mg/dL (65-115); Phosphorus 3.7 mg/dL (2.5-4.5); Potassium 4.2 mmol/L (3.5-5.1); Sodium 138 mmol/L (136-145)
[2020-11-25 18:07] LABS: Creatinine Urine, Random 36 mg/dL (28-217)
[2020-11-25 18:08] LABS: Microalbum Creatinine Ratio Ur 28 mg/dL (0-20); Microalbumin Random Urine 1 ug/dL (0-20)
[2020-11-25 18:50] LABS: Calcium 9.8 mg/dL (8.5-10.5); Parathyroid Hormone 116.3 pg/mL (15-65)
== END 2020-11-25 14:52 | disposition home or self-care (01) ==
LOC: LAB 14:57
PROVIDERS: PCP Family Medicine; Visit Provider Internal Medicine Nephrology
DX: N18.30 Chronic kidney disease, stage 3 unspecified (principal)
CPT/HCPCS: 36415; 80069; 82044; 82310; 83970; 85025

== ENCOUNTER 2021-01-14 11:57 | Emergency (ER) | payer MEDICARE, BC, SELFPAY ==
[2021-01-14 12:48] VITALS: BP 147/86; PULSE 84; RESP 18; TEMP 36.4; O2SAT 97; BMI 25.8
[2021-01-14 13:15] LABS: Blood Urine 3+ (Negative); Glucose Urine UA Norm (Normal); Ketones Urine 1+ (Negative); Protein Urine 3+ (Negative); Urine Appearance Bloody (CLEAR); Urine Color Red (Yellow); pH Urine 7 (5-7)
[2021-01-14 13:18] LABS: Add Urine Microscopic? YES; Bilirubin Urine Neg (Negative); Leukocyte Esterase Urine 1+ (Negative); Nitrate Urine Not Tested (Negative); RBC Urine TOO NUMEROUS TO CNT /hpf (0-2); Urobilinogen Urine Norm (Negative)
[2021-01-14 13:19] LABS: Bacteria Urine 1+ /hpf; Mucus Urine TRACE /hpf; Squamous Epithelial Cell Urine 0-4 /hpf (0-5); WBC Urine 55-80 /hpf (0-5)
[2021-01-14 13:20] LABS: Add Urine Culture? Yes
--- NOTE | 2021-01-14 14:58 | ED_ITS ---
HPI - Female Genitourinary General: Chief complaint: Urogenital-Female Stated complaint: BLOOD IN URINE Time Seen by Provider: 01/14/21 14:49 History of Present Illness: HPI Narrative: Patient with a flareup of her chronic UTI MD elicited complaint: UTI Pertinent past history: recurrent UTIs Associated symptoms: Reports no associated symptoms; Deny abdominal pain Treatment prior to arrival: other (Medications atrophy or tone) Review of Systems Const: Denies: fever(s) or chills GI: Denies: abdominal pain : Reports: urinary frequency and urinary urgency Psych: Denies: anxiety PFSH ED PFSH: Medical History (Updated 01/14/21 @ 14:56 by JO ANN Duarte) Cancer of right kidney Genital atrophy of female Recurrent UTI Retention of urine S/p nephrectomy Surgical History H/O transurethral destruction of bladder lesion History of right nephrectomy S/P mastectomy Status post repair cleft left atrioventricular valve leaflet Family History Father , 87 CAD (coronary artery disease) Mother , 81 CAD (coronary artery disease) Social History Smoking and tobacco status: never smoked Alcohol intake: never Adopted: No Caregiver/support person: No Lives independently: No Household members: spouse Marital status: Current occupational status: retired History of recent travel: No Physical Exam Const: COMMON NORMALS: no acute distress Resp: COMMON NORMALS: normal respiratory effort GI: INSPECTION: Yes normal to inspection Psych: COMMON NORMALS: mental status grossly normal Course Vital Signs: Vital signs: Vital Signs Temperature 97.5 F L 01/14/21 15:02 Pulse Rate 79 01/14/21 15:02 Respiratory Rate 18 01/14/21 15:02 Blood Pressure 125/73 01/14/21 15:02 Pulse Oximetry 96 01/14/21 15:02 MDM - Female Lab Data: Labs: Lab Results 01/14/21 Range/Units 12:52 Urine Color Red (Yellow) Urine Appearance Bloody A (CLEAR) Urine pH 7 (5-7) Ur Specific Gravit y 1.010 (1.005-1.030) Urine Protein 3+ H (Negative) Urine Glucose (UA) Norm (Normal) Urine Ketones 1+ H (Negative) Urine Blood 3+ H (Negative) Urine Nitrate Not tested A (Negative) Urine Bilirubin Neg (Negative) Urine Urobilinogen Norm (Negative) mg/dL Ur Leukocyte Claudia ase 1+ H (Negative) Urine RBC Too numerous to c nt H (0-2) /hpf Urine WBC 55-80 H (0-5) /hpf Ur Squamous Epith Cells 0-4 H (0-5) /hpf Amorphous Sediment Not Reportable Urine Bacteria 1+ H (NONE) /hpf Urine Mucus Trace /hpf Discharge Plan Discharge Patient Disposition: Home Clinical Impression: Urinary tract infection Qualifiers: Urinary tract infection type: acute cystitis Hematuria presence: with hematuria Qualified Code(s): N30.01 - Acute cystitis with hematuria Condition: Stable Prescriptions: New ciprofloxacin HCl 250 mg tablet 250 mg PO BID Qty: 14 RF: 0 No Action aspirin 81 mg tablet,delayed release (DR/EC) 81 mg PO ONCE RF: 0 atorvastatin 20 mg tablet 20 mg PO DAILY RF: 0 hydromorphone 4 mg tablet 4 mg PO Q6H PRN (Reason: Pain) RF: 0 spironolactone 25 mg tablet 25 mg PO DAILY RF: 0 furosemide 40 mg tablet 40 mg PO BID RF: 0 olanzapine 2.5 mg tablet 5 mg PO ONCE RF: 0 nitrofurantoin macrocrystal 100 mg capsule 100 mg PO BID Qty: 60 RF: 3 diclofenac sodium [Voltaren] 1 % gel 2 gm TOPICAL QID 30 Days Qty: 100 RF: 0 Premarin 0.625 mg/gram cream 0.625 mg VAGINAL DAILY Qty: 30 RF: 12 lidocaine HCl 2 % jelly 1 applic INTRA-URET ONCE Qty: 1 RF: 0 omeprazole 20 mg capsule,delayed release(DR/EC) 20 mg PO DAILY RF: 0 Discharge Orders: Discharge ED (Routine); Ordered 01/14/21 Ordered By: Po Cool Referrals: Andrei Millan MD [Primary Care Provider] - Discharge Diet: Usual diet Discharge Activity: Resume usual activity Activity Restrictions/Additional Instructions: Follow-up with medical provider as directed. Take medications as prescribed. Return to the ER or your medical provider if condition worsens. Please read and understand discharge instructions. If any questions ask please. Coding Level of Care Code ED Solutions Architect Consultant for Chg Fwd Exam Expanded Problem Focused
[2021-01-14 15:02] VITALS: BP 125/73; PULSE 79; RESP 18; TEMP 36.4; O2SAT 96
== END 2021-01-14 15:03 | disposition home or self-care (01) ==
PROVIDERS: Emergency Provider Nurse Practitioner Family; PCP Family Medicine
DX: N30.01 Acute cystitis with hematuria (principal); Z79.82 Long term (current) use of aspirin; Z87.440 Personal history of urinary (tract) infections; Z90.5 Acquired absence of kidney
CPT/HCPCS: 81001; 87086; 99282

== ENCOUNTER → 2021-01-19 13:39 | Outpatient (BNVA) | payer MEDICARE, BC, SELFPAY | PROVIDERS: PCP Family Medicine; Visit Provider Nurse Practitioner Family | DX: N39.0 Urinary tract infection, site not specified (principal); R31.0 Gross hematuria | CPT/HCPCS: 81003 ==

== ENCOUNTER 2021-01-26 12:54 | Outpatient (CLI) | payer MEDICARE, BC, SELFPAY ==
[2021-01-26 14:39] LABS: Basophils # 0.1 10^3/uL (0.0-0.1); Basophils % 0.6 %; Eosinophils # 0.3 10^3/uL (0.0-0.8); Eosinophils % 3.1 %; Hematocrit 44.4 % (37.0-47.0); Hemoglobin 14.3 g/dL (11.5-15.3); Lymphocytes % 25.1 %; Mean Corpuscular HGB Conc 32.2 g/dL (30.0-36.0); Mean Corpuscular Hemoglobin 30.2 pg (28.0-34.0); Mean Corpuscular Volume 93.7 fL (81-99); Monocytes # 0.7 10^3/uL (0.2-0.9); Monocytes % 8.8 %; Neutrophils # 4.96 10^3/uL (1.8-7.7); Neutrophils % 62.1 %; Nucleated Red Blood Cells % 0 %; Platelet Count 334 10^3/cmm (130-400); Red Blood Count 4.74 10^6/uL (4.1-5.3); Red Cell Distribution Width 13.9 % (12.1-15.1)
[2021-01-26 14:56] LABS: Alanine Aminotransferase 12 U/L (0-33); Albumin Level 3.9 g/dL (3.5-5.2); Alkaline Phosphatase 96 IU/L (35-105); Anion Gap 13.8 (5-19); Aspartate Amino Transferase 22 U/L (0-32); Blood Urea Nitrogen 16 mg/dL (8-23); Calcium 9.7 mg/dL (8.5-10.5); Carbon Dioxide 29 mmol/L (22-29); Chloride 99 mmol/L (98-107); Globulin 3.3 g/dL (1.3-4.6); Glucose 103 mg/dL (65-115); Lactate Dehydrogenase 180 U/L (135-214); Osmolality Calculated 287 mOsm/kg (285-295); Potassium 3.8 mmol/L (3.5-5.1); Sodium 138 mmol/L (136-145); Total Bilirubin 0.4 mg/dL (0.15-1.2); Total Protein 7.2 g/dL (6.6-8.7)
--- NOTE | 2021-01-30 12:04 | ONC FU_ITS ---
Dr. Newsome Patient Follow-Up Note Patient: Pratibha Ann Unit #: [id number]: 1940 Dicatated By: Reg Newsome M.D.Date of Visit:Jan 26, 2021 Onc Med Follow-up/Prog Note Chief Complaint: Renal cell cancer. History of Present Illness: This is a 81 year-old woman with metastatic renal cell cancer. She had presented in October 2014 with pain in the right flank area and right side of the back. A CT scan of the abdomen/pelvis showed an upper pole mass in the right kidney measuring 3.1 x 4 x 4.4 cm. The appearance was suspicious for neoplasm. There was associated retroperitoneal and retrocrural lymphadenopathy and there were bilateral lower lobe subcentimeter pulmonary nodules. PET/CT on 12/19/2014 showed 4.3 cm FDG avid mass in the right kidney measuring 4.3 cm. There were multiple FDG avid retroperitoneal lymph nodes which included an infrarenal aortic caval node with SUV 7.4. A 9 mm right retrocrural lymph node was FDG negative. There was no portacaval, mediastinal, or supraclavicular adenopathy noted. There were no hepatic or adrenal metastases. There were innumerable subcentimeter pulmonary nodules. An 8 mm nodule in the left lung apex did show FDG uptake with SUV 2.0. The remainder were FDG negative, presumably due to their small size. The appearance was felt to be consistent with pulmonary metastases. She was referred to Dr. Ronni Rapp in [place]. A right renal biopsy on 12/29/2014 showed poorly differentiated carcinoma consistent with a Radha grade 3/4 renal cell carcinoma. On 01/06/2015 she underwent right robotic-assisted laparoscopic radical nephrectomy and right para vena caval lymph node dissection. Pathology showed clear cell renal cell carcinoma, Radha nuclear grade 3. The tumor measured 5.5 cm in maximum dimension. There was extension into the renal sinus adipose tissue and into the wall of the renal vein. There was invasion through the renal capsule into the perinephric adipose tissues. There was involvement of the renal sinus resection margin and the renal vein resection margin. One right perihilar lymph node was benign. Right destiny-vena cava biopsy showed benign adipose tissue with no lymph node identified. Following the surgery, she had continued to have a fair amount of pain in the right side of the abdomen, right flank, and right side of the back. She also had constipation and severe nausea/anorexia. We had not been able to determine a specific cause for the pain or the nausea/anorexia, and thus far she has just continued symptomatic management for it. She eventually did start a trial of therapy with pazopanib following her visit here on 02/15/2015. It was stopped within a short time because of side effects. It was restarted at a reduced dosage (400 mg daily) following her visit in February 2015. She still tolerated it poorly even at the reduced dosage. She had restaging CT scans on 05/12/2015. There was again evidence of innumerable pulmonary nodules bilaterally. These ranged in size from 5-15 mm. The majority showed cavitary necrotic centers. There was a very slight increase in the size of the pulmonary nodules from the previous study. There was extensive mediastinal lymphadenopathy and bilateral necrotic hilar adenopathy. The adenopathy in the abdomen/pelvis was noted to have increased in size and it appeared more confluent. The largest group of confluent necrotic lymph nodes was at the level of the right renal vein measuring 5.7 x 3.8 x 3.8 cm. Overall, there was evidence of significant disease progression. In May 2015 she began a trial of therapy with Torisel. She received her initial treatment on 06/04/2015. She was unable to complete it due to hypersensitivity reaction. As of 06/24/2015 she started a trial of therapy with nivolumab at a standard dosage of 3 mg/kg by IV infusion every 2 weeks. She tolerated it very well, and during this time she had significant improvement in her performance status. Restaging CT scans in July 2015 showed interval marked improvement in the pulmonary metastatic disease and in the bilateral hilar and mediastinal lymphadenopathy and interval moderate decrease in the size and number of retroperitoneal lymph nodes. As of 12/02/2015 she had completed 12 cycles of treatment. Restaging CT scans at that time showed continued decrease in the size and number of bilateral pulmonary metastatic nodules with no evidence of disease progression in the chest. There was also further decrease in the retroperitoneal lymphadenopathy, and no evidence of disease progression in the abdomen/pelvis region. She continued treatment with nivolumab. In January 2016 her treatment was put on hold due to increasing fatigue and musculoskeletal pain. Restaging CT scans on 03/03/2016 showed no evidence of disease progression. There were irregular pulmonary nodules in the upper lobes bilaterally, but they did appear stable. There was no inguinal, retroperitoneal, or mesenteric adenopathy noted. She did have evidence of extensive abdominal aorta and left iliac artery calcific atheromatous changes, but without aneurysm. There were degenerative changes in the lumbar spine. She did report symptomatic improvement with prednisone, and she was able to continue with cycle 18 of nivolumab on 03/09/2016. CT of the chest, abdomen, and pelvis on 09/06/2016 showed stable pulmonary parenchymal nodules compared to previous studies from 03/03/2016 and 11/30/2015. There was no evidence of a neoplastic process within the abdomen or pelvis. She continued treatment with nivolumab. She received cycle 37 on 11/30/2016. On 12/01/2016, the day following her nivolumab infusion, she had an episode of chest pain. Her pain began in the right side of her back and radiated to her chest. She did not have shortness of breath with that episode, but said that she was hypertensive. She took two nitroglycerin and her pain resolved. She did not go to the emergency room. She did see Dr. Millan, who prescribed her an additional blood pressure pill. She indicated that she had experienced 5 or 6 of these type of spells in the last several years. However, at that point I did opt to put her nivolumab on hold. Restaging CT scans of the chest, abdomen, and pelvis on 12/26/2016 showed no evidence of progressive disease. There were stable subcentimeter 4 5-mm pulmonary nodules noted. There was no mediastinal, abdominal, or pelvic lymphadenopathy. She was then followed on observation/expectant management. She had repeat CT scans of the chest, abdomen, and pelvis on 03/30/2017. There were stable subcentimeter pulmonary nodules which were described as having an inflammatory appearance. There were changes related to the prior nephrectomy. There was no evidence of disease progression in the chest, abdomen, or pelvis. Her surveillance CT scans in September 2017 remained stable, and she continued on observation/expectant management. During subsequent follow-up her overall clinical status remained stable. She was able to gradually taper off prednisone. As of December [address] scans had shown no evidence of recurrence/progression of the renal cell cancer. Her other medical illnesses include hypertension and hyperlipidemia. She also has been treated for both cervical cancer and breast cancer. She had smoked for a short time in the past, but she quit at age 27. INTERIM HISTORY: CT scans of the chest, abdomen, and pelvis on 10/07/2020 showed previous right nephrectomy with no evidence of recurrent mass at the renal bed. There is no evidence of metastatic disease to the chest, abdomen, or pelvis. She is seen for a scheduled visit. She recently had developed hematuria. At the time she was on vacation. She was able to antibiotic therapy with ciprofloxacin. She recently had follow-up with Dr. Whatley and at that point she was improving. At this point she continues on antibiotic coverage. She still has fatigue, but her energy is getting better. Her ECOG score is 1. She has good appetite. She does not have fever or night sweats. She has had no mouth sores. She has no shortness of breath, cough, or chest pain. She is prone to having constipation, but bowel function remains adequate as long as she stays on top of it. She has no other GI complaints. Her bladder symptoms have improved. She has neuropathy symptoms in her feet and toes. She has no significant joint or bone pain. Medications: Atorvastatin Calcium 1 Tablet (of 20 mg) Oral at bedtime, Diclofenac Sodium (1 %) Gel (jelly) Transdermal four times a day, Furosemide 1 Tablet (of 40 mg) Oral daily, Nitrofurantoin Monohyd Macro 1 (100 mg) Capsule Oral b.i.d., OLANZapine 1 Tablet (of 2.5 mg) Oral at bedtime, Omeprazole 1 Tablet (of 20 mg) Tablet, enteric coated Oral b.i.d., Premarin Cream Vaginal, Senna S 2 Tablet (of 8.6-50 mg) Oral t.i.d., Spironolactone 1 Tablet (of 25 mg) Oral daily, Stool Softener 1 Tablet (of 100 mg) Oral daily PRN Allergies: Gabapentin, Sulfa Antibiotics, and Torisel. Vital Signs: Performed on Jan 26, 2021 14:57 Height - 66.00 in Weight - 159.4 lbs (LOW) BSA - 1.82 sq.m BMI - 25.73 Temperature - 98.5 F Pulse - 89 /min Respiration - 18 /min BP - 125/74 mm(hg) O2 Sat - 97 % Pain - 0 Fatigue - 0 Physical Examination: Constitutional - She looks pretty good generally, Eyes - Sclerae nonicteric. Conjunctivae clear, ENMT - No lesions noted in the oral cavity, Hematologic/Lymphatic - No cervical, clavicular, or axillary adenopathy, Respiratory - Lungs sound clear with good air movement bilaterally, Cardiovascular - Heart rhythm is regular. There is no gallop or rub noted, Abdomen - Soft. Liver and spleen are not enlarged. There is no abdominal mass or ascites noted and there is no inguinal adenopathy, Extremities - No edema, Neurologic - No focal neurologic deficits noted. Lab/Imaging: Test performed on Jan 26, 2021 13:12 LDH (Total) 180 U/L Sodium 138 mmol/L Potassium 3.8 mmol/L Chloride 99 mmol/L CO2 29 mmol/L Anion Gap 13.8 BUN 16 mg/dL Creatinine 1.6 mg/dL Cr Clearance (Est) 33.0800 mL/min Glucose 103 mg/dL Osmolality - Calculated 287 mOsm/kg Calcium 9.7 mg/dL Protein, Total 7.2 g/dL Albumin 3.9 g/dL Globulin 3.3 g/dL Bilirubin, Total 0.4 mg/dL ALT (SGPT) 12 U/L AST (SGOT) 22 U/L Alkaline Phosphatase 96 IU/L WBC 8.0 10 3/uL RBC 4.74 10 6/uL HGB 14.3 g/dL HCT 44.4 % MCV 93.7 fL MCH 30.2 pg MCHC 32.2 g/dL RDW 13.9 % Platelet Count 334 10 3/cmm MPV 9.0 fL Neutrophils 4.96 10 3/uL Lymphocytes 2.0 10 3/uL Monocytes 0.7 10 3/uL Eosinophils 0.3 10 3/uL Basophils 0.1 10 3/uL Neutrophil % 62.1 % Lymphocyte % 25.1 % Monocyte % 8.8 % Eosinophil % 3.1 % Basophils % 0.6 % NRBC % 0 % Problem List: 1. Clear-cell carcinoma of the right kidney, Radha grade 3, stage IV (pT3a, N0, M1). 2. During treatment she developed joint pain and peripheral neuropathy. 3. She has had recurrent urinary tract infections. 4. Hypertension. 8. Hyperlipidemia. 9. She has CT evidence of atherosclerotic cardiovascular disease. Problems Addressed with this Encounter and Plan: 1. Patient with clear-cell carcinoma of the right kidney, Radha grade 3, stage IV (pT3a, N0, M1). She underwent right robotic-assisted laparoscopic radical nephrectomy on 01/06/2015. Her subsequent management was complicated due to ongoing problems with pain in the flank/back on the right side, constipation, and severe nausea/anorexia. I was not able to identify any specific cause for those problems. Her management was further complicated by numerous medication intolerances. She eventually did start a trial of therapy with pazopanib, but she tolerated it poorly, even at a reduced dosage (400 mg daily), and followup CT scans in April 2015 showed evidence of significant disease progression. She started a trial of therapy with Torisel on 06/04/2015, but she was unable to complete the initial infusion because of an acute infusion reaction. She then started a trial of immunotherapy with nivolumab on 06/24/2015. She tolerated it very well at a standard dosage of 3 mg/kg by IV infusion every 2 weeks. She had significant improvement in her performance status as well as evidence of significant response by restaging CT scans. In January 2016 her treatment was put on hold due to increasing fatigue and musculoskeletal pain. Restaging CT scans again on 03/03/2016 showed evidence of residual pulmonary nodules in the upper lobes bilaterally, but they appeared stable. There was no evidence of disease progression. In the meantime, she had significant symptomatically improvement with prednisone, and she was able to resume treatment with nivolumab. As of November 2016 her treatment was put on hold after she had presented to the emergency room with chest pain and hypertension. Her restaging CT scans on 12/26/2016 showed no evidence of disease progression. She was then managed expectantly. During follow-up she has continued to have some fatigue. She also has musculoskeletal pain and she has neuropathy symptoms in the lower extremities. Overall, though, she has been doing well clinically. Thus far there has been no evidence of recurrence/progression of the renal cell cancer. She remains on observation/expectant management. I will see her again in 3 months. She will have restaging CT scans prior to that visit. 2. During the initial treatment of her renal cell cancer she had developed intractable nausea. It was eventually managed with olanzapine, which she has continued at bedtime for nausea and to help with management of insomnia. Signed By: Reg Newsome M.D. <<Signature on File>>
== END 2021-01-26 12:55 | disposition home or self-care (01) ==
PROVIDERS: PCP Family Medicine; Visit Provider Internal Medicine Medical Oncology
DX: C64.1 Malignant neoplasm of right kidney, except renal pelvis (principal); C78.01 Secondary malignant neoplasm of right lung; C78.02 Secondary malignant neoplasm of left lung; C77.8 Secondary and unspecified malignant neoplasm of lymph nodes of multiple regions; G62.9 Polyneuropathy, unspecified; I10 Essential (primary) hypertension; E78.5 Hyperlipidemia, unspecified; I25.10 Atherosclerotic heart disease of native coronary artery without angina pectoris; N39.0 Urinary tract infection, site not specified; Z90.5 Acquired absence of kidney; Z79.899 Other long term (current) drug therapy
CPT/HCPCS: 36415; 80053; 83615; 85025; 99214

== ENCOUNTER → 2021-02-01 14:57 | Outpatient (BNVA) | payer MEDICARE, BC, SELFPAY | PROVIDERS: PCP Family Medicine; Visit Provider Urology | DX: R31.0 Gross hematuria (principal) | CPT/HCPCS: 81003 ==

== ENCOUNTER → 2021-02-23 14:08 | Outpatient (BNVA) | payer MEDICARE, BC, SELFPAY | PROVIDERS: PCP Family Medicine; Visit Provider Urology | DX: R31.0 Gross hematuria (principal) | CPT/HCPCS: 81003; 87086 ==

== ENCOUNTER 2021-02-28 15:17 | Outpatient (CLI) | payer MEDICARE, BC, SELFPAY ==
--- NOTE | 2021-02-28 15:27 | US_ITS ---
WS: [id number] ULTRASOUND RENAL TECHNIQUE: Ultrasound examination of both kidneys. CLINICAL INFORMATION: GROSS HEMATURIA COMPARISON: None. FINDINGS: RIGHT: Right nephrectomy LEFT: Left kidney is normal in size and appearance. Echogenicity: Normal. Cortical thickness: 1.0 cm; Normal. Hydronephrosis: None. Perinephric fluid: None. Left kidney measures: 9.8 cm x 4.6 cm x 4.7 cm. Normal visualized aorta. Bladder is decompressed US/US renal BI* [id number] IMPRESSION: 1. Prior right nephrectomy. 2. Normal left kidney. No hydronephrosis. 3. Bladder is decompressed.
== END 2021-02-28 15:18 | disposition home or self-care (01) ==
LOC: RAD 15:24
PROVIDERS: PCP Family Medicine; Visit Provider Urology
DX: R31.0 Gross hematuria (principal); Z90.5 Acquired absence of kidney
CPT/HCPCS: 76770

== ENCOUNTER 2021-03-01 08:29 | Outpatient (CLI) | payer MEDICARE, BC, SELFPAY ==
[2021-03-01 09:21] LABS: Basophils # 0.1 10^3/uL (0.0-0.1); Basophils % 0.9 %; Eosinophils # 0.2 10^3/uL (0.0-0.8); Eosinophils % 3.5 %; Hematocrit 43.5 % (37.0-47.0); Hemoglobin 14.2 g/dL (11.5-15.3); Lymphocytes # 2.5 10^3/uL (0.8-4.8); Lymphocytes % 37.5 %; Mean Corpuscular HGB Conc 32.6 g/dL (30.0-36.0); Mean Platelet Volume 8.8 fL (7.4-10.4); Monocytes # 0.8 10^3/uL (0.2-0.9); Monocytes % 11.5 %; Neutrophils # 3.06 10^3/uL (1.8-7.7); Neutrophils % 46.3 %; Nucleated Red Blood Cells % 0 %; Platelet Count 289 10^3/cmm (130-400); Red Blood Count 4.73 10^6/uL (4.1-5.3); Red Cell Distribution Width 13.2 % (12.1-15.1); White Blood Count 6.6 10^3/uL (4.0-10.0)
== END 2021-03-01 08:30 | disposition home or self-care (01) ==
LOC: LAB 08:33
PROVIDERS: PCP Family Medicine; Visit Provider Urology
DX: R31.0 Gross hematuria (principal)
CPT/HCPCS: 36415; 81003; 85025

== ENCOUNTER → 2021-03-09 16:50 | Outpatient (BNVA) | payer MEDICARE, BC, SELFPAY | PROVIDERS: PCP Family Medicine; Visit Provider Nurse Practitioner | DX: N39.0 Urinary tract infection, site not specified (principal); Z68.25 Body mass index [BMI] 25.0-25.9, adult | CPT/HCPCS: 81000; 87077; 87086; 87184 ==

== ENCOUNTER 2021-04-21 09:47 | Outpatient (CLI) | payer MEDICARE, BC, SELFPAY ==
--- NOTE | 2021-04-21 09:58 | CT_ITS ---
WS: [id number] CT CHEST, ABDOMEN AND PELVIS WITHOUT CONTRAST. HISTORY: RENAL CELL CANCER TECHNIQUE: Contiguous 5 mm axial imaging performed through the chest, abdomen and pelvis without IV c ontrast, oral contrast has been provided. Coronal and sagittal reformats chest. Coronal and sagittal reformats through the abdomen and pelvis. All CT scans at [facility] use at least one of these dose optimization techniques: automated exposure control; mA and/or kV adjustment per patient s ize (includes targeted exams where dose is matched to clinical indication); or iterative reconstructi on. CONTRAST: None DLP: 1241.67 mGy.cm COMPARISON: 10/07/2020 and 06/20/2020, 04/08/[address]: There are a few scattered subcentimeter irregular nodules throughout the lungs and pleural thickening. These changes have been stable over multiple prior examinations. There are no new nodules or increased in size of the nodules. Pleural thickening in the RIGHT thorax is stable. Very mild ath erosclerosis of aorta. Normal size pulmonary artery. Scattered coronary artery calcifications. No axi llary, mediastinal or hilar adenopathy. Status post RIGHT mastectomy. No recurrent mass at the mastec magdi site. Prior RIGHT axillary vane dissection. Small hiatal hernia. Abdomen CT: Unenhanced imaging of the liver, spleen and pancreas are negative. The gallbladder is mod erately well distended with no adjacent inflammation. Stones are suspected within the gallbladder. Th treva may contain fat. Normal adrenal glands. Contour of the LEFT kidney is normal with no obstruction. Prior RIGHT nephrectomy. No recurrent mass at the renal bed. Mild atherosclerosis aorta with no aneu rysm. Atherosclerotic changes continue into the proximal mesenteric arteries. No ascites or mesenteri c deposits. No GI tract obstruction. The appendix is normal. Sigmoid diverticulosis without acute diverticulitis. Ventral abdominal wall hernia contains fat. Pelvic CT: No free fluid or adenopathy. Nondistended urinary bladder. Severe degenerative disc disease at L2-3 similar to the prior examinations. C4 anterolisthesis by 5 m m. No osteoblastic or osteolytic bone disease. CT/CT chest abd pel wo con IMPRESSION: 1. Stable appearance of the chest, abdomen and pelvis since 10/07/2020. No kalyn dence for metastatic disease. 2. Prior RIGHT mastectomy and RIGHT nephrectomy. 3. No ascites or free air. 4. Sigmoid diverticulosis without acute diverticulitis.
[2021-04-21] MEDS: iohexol 300 mg/mL 50 mL Btl PO (11:21)
[2021-04-21 11:45] LABS: Basophils # 0.1 10^3/uL (0.0-0.1); Basophils % 0.8 %; Eosinophils # 0.5 10^3/uL (0.0-0.8); Eosinophils % 5.8 %; Hematocrit 45.9 % (37.0-47.0); Hemoglobin 14.7 g/dL (11.5-15.3); Lymphocytes # 3.1 10^3/uL (0.8-4.8); Lymphocytes % 34.3 %; Mean Corpuscular Hemoglobin 29.8 pg (28.0-34.0); Mean Corpuscular Volume 93.1 fL (81-99); Mean Platelet Volume 8.6 fL (7.4-10.4); Monocytes # 0.9 10^3/uL (0.2-0.9); Neutrophils # 4.37 10^3/uL (1.8-7.7); Neutrophils % 48.9 %; Nucleated Red Blood Cells % 0 %; Platelet Count 376 10^3/cmm (130-400); Red Blood Count 4.93 10^6/uL (4.1-5.3); White Blood Count 8.9 10^3/uL (4.0-10.0)
[2021-04-21 12:14] LABS: Alanine Aminotransferase 22 U/L (0-33); Albumin Level 4.1 g/dL (3.5-5.2); Alkaline Phosphatase 95 IU/L (35-105); Anion Gap 15.8 (5-19); Aspartate Amino Transferase 29 U/L (0-32); Blood Urea Nitrogen 15 mg/dL (8-23); Calcium 9.5 mg/dL (8.5-10.5); Carbon Dioxide 28 mmol/L (22-29); Chloride 96 mmol/L (98-107); Globulin 3.3 g/dL (1.3-4.6); Glucose 105 mg/dL (65-115); Lactate Dehydrogenase 219 U/L (135-214); Osmolality Calculated 283 mOsm/kg (285-295); Potassium 3.8 mmol/L (3.5-5.1); Sodium 136 mmol/L (136-145); Total Bilirubin 0.5 mg/dL (0.15-1.2); Total Protein 7.4 g/dL (6.6-8.7)
== END 2021-04-21 09:48 | disposition home or self-care (01) ==
PROVIDERS: PCP Family Medicine; Visit Provider Internal Medicine Medical Oncology
DX: C64.1 Malignant neoplasm of right kidney, except renal pelvis (principal); Z90.11 Acquired absence of right breast and nipple; Z90.5 Acquired absence of kidney; K57.30 Diverticulosis of large intestine without perforation or abscess without bleeding
CPT/HCPCS: 36415; 71250; 74176; 80053; 83615; 85025

== ENCOUNTER 2021-04-27 15:26 | Outpatient (CLI) | payer MEDICARE, BC, SELFPAY ==
--- NOTE | 2021-04-27 17:54 | ONC FU_ITS ---
Dr. Newsome Patient Follow-Up Note Patient: Pratibha Ann Unit #: [id number]: 1940 Dicatated By: Reg Newsome M.D.Date of Visit:Apr 27, 2021 Onc Med Follow-up/Prog Note Chief Complaint: Renal cell cancer. History of Present Illness: This is a 80 year-old woman with metastatic renal cell cancer. She had presented in October 2014 with pain in the right flank area and right side of the back. A CT scan of the abdomen/pelvis showed an upper pole mass in the right kidney measuring 3.1 x 4 x 4.4 cm. The appearance was suspicious for neoplasm. There was associated retroperitoneal and retrocrural lymphadenopathy and there were bilateral lower lobe subcentimeter pulmonary nodules. PET/CT on 12/19/2014 showed 4.3 cm FDG avid mass in the right kidney measuring 4.3 cm. There were multiple FDG avid retroperitoneal lymph nodes which included an infrarenal aortic caval node with SUV 7.4. A 9 mm right retrocrural lymph node was FDG negative. There was no portacaval, mediastinal, or supraclavicular adenopathy noted. There were no hepatic or adrenal metastases. There were innumerable subcentimeter pulmonary nodules. An 8 mm nodule in the left lung apex did show FDG uptake with SUV 2.0. The remainder were FDG negative, presumably due to their small size. The appearance was felt to be consistent with pulmonary metastases. She was referred to Dr. Ronni Rapp in [place]. A right renal biopsy on 12/29/2014 showed poorly differentiated carcinoma consistent with a Radha grade 3/4 renal cell carcinoma. On 01/06/2015 she underwent right robotic-assisted laparoscopic radical nephrectomy and right para vena caval lymph node dissection. Pathology showed clear cell renal cell carcinoma, Radha nuclear grade 3. The tumor measured 5.5 cm in maximum dimension. There was extension into the renal sinus adipose tissue and into the wall of the renal vein. There was invasion through the renal capsule into the perinephric adipose tissues. There was involvement of the renal sinus resection margin and the renal vein resection margin. One right perihilar lymph node was benign. Right destiny-vena cava biopsy showed benign adipose tissue with no lymph node identified. Following the surgery, she had continued to have a fair amount of pain in the right side of the abdomen, right flank, and right side of the back. She also had constipation and severe nausea/anorexia. We had not been able to determine a specific cause for the pain or the nausea/anorexia, and thus far she has just continued symptomatic management for it. She eventually did start a trial of therapy with pazopanib following her visit here on 02/15/2015. It was stopped within a short time because of side effects. It was restarted at a reduced dosage (400 mg daily) following her visit in February 2015. She still tolerated it poorly even at the reduced dosage. She had restaging CT scans on 05/12/2015. There was again evidence of innumerable pulmonary nodules bilaterally. These ranged in size from 5-15 mm. The majority showed cavitary necrotic centers. There was a very slight increase in the size of the pulmonary nodules from the previous study. There was extensive mediastinal lymphadenopathy and bilateral necrotic hilar adenopathy. The adenopathy in the abdomen/pelvis was noted to have increased in size and it appeared more confluent. The largest group of confluent necrotic lymph nodes was at the level of the right renal vein measuring 5.7 x 3.8 x 3.8 cm. Overall, there was evidence of significant disease progression. In May 2015 she began a trial of therapy with Torisel. She received her initial treatment on 06/04/2015. She was unable to complete it due to hypersensitivity reaction. As of 06/24/2015 she started a trial of therapy with nivolumab at a standard dosage of 3 mg/kg by IV infusion every 2 weeks. She tolerated it very well, and during this time she had significant improvement in her performance status. Restaging CT scans in July 2015 showed interval marked improvement in the pulmonary metastatic disease and in the bilateral hilar and mediastinal lymphadenopathy and interval moderate decrease in the size and number of retroperitoneal lymph nodes. As of 12/02/2015 she had completed 12 cycles of treatment. Restaging CT scans at that time showed continued decrease in the size and number of bilateral pulmonary metastatic nodules with no evidence of disease progression in the chest. There was also further decrease in the retroperitoneal lymphadenopathy, and no evidence of disease progression in the abdomen/pelvis region. She continued treatment with nivolumab. In January 2016 her treatment was put on hold due to increasing fatigue and musculoskeletal pain. Restaging CT scans on 03/03/2016 showed no evidence of disease progression. There were irregular pulmonary nodules in the upper lobes bilaterally, but they did appear stable. There was no inguinal, retroperitoneal, or mesenteric adenopathy noted. She did have evidence of extensive abdominal aorta and left iliac artery calcific atheromatous changes, but without aneurysm. There were degenerative changes in the lumbar spine. She did report symptomatic improvement with prednisone, and she was able to continue with cycle 18 of nivolumab on 03/09/2016. CT of the chest, abdomen, and pelvis on 09/06/2016 showed stable pulmonary parenchymal nodules compared to previous studies from 03/03/2016 and 11/30/2015. There was no evidence of a neoplastic process within the abdomen or pelvis. She continued treatment with nivolumab. She received cycle 37 on 11/30/2016. On 12/01/2016, the day following her nivolumab infusion, she had an episode of chest pain. Her pain began in the right side of her back and radiated to her chest. She did not have shortness of breath with that episode, but said that she was hypertensive. She took two nitroglycerin and her pain resolved. She did not go to the emergency room. She did see Dr. Millan, who prescribed her an additional blood pressure pill. She indicated that she had experienced 5 or 6 of these type of spells in the last several years. However, at that point I did opt to put her nivolumab on hold. Restaging CT scans of the chest, abdomen, and pelvis on 12/26/2016 showed no evidence of progressive disease. There were stable subcentimeter 4 5-mm pulmonary nodules noted. There was no mediastinal, abdominal, or pelvic lymphadenopathy. She was then followed on observation/expectant management. She had repeat CT scans of the chest, abdomen, and pelvis on 03/30/2017. There were stable subcentimeter pulmonary nodules which were described as having an inflammatory appearance. There were changes related to the prior nephrectomy. There was no evidence of disease progression in the chest, abdomen, or pelvis. Her surveillance CT scans in September 2017 remained stable, and she continued on observation/expectant management. During subsequent follow-up her overall clinical status remained stable. She was able to gradually taper off prednisone. As of December [address] scans had shown no evidence of recurrence/progression of the renal cell cancer. Her other medical illnesses include hypertension and hyperlipidemia. She has been followed by Dr. Whatley for recurrent urinary tract infections. She also has been treated for both cervical cancer and breast cancer. She had smoked for a short time in the past, but she quit at age 27. INTERIM HISTORY: CT scans on 10/07/2020 showed previous right nephrectomy with no evidence of recurrent mass at the renal bed. There was no evidence of metastatic disease to the chest, abdomen, or pelvis. During her subsequent follow-up she has been having intermittent hematuria. Her repeat cystoscopy on 03/01/2021 showed diffusely inflamed bladder consistent with cystitis. 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 She had [facility]ICE [facility]ENT consultation with Dr. Bruner 03/16/2021. She was noted to have grade 2-3 cystocele, grade 2-3 vault prolapse, and grade 2 rectocele. She was recommended to have further evaluation through the [facility] department at the [facility]. I do not have those records available, but surgery was apparently not recommended due to her previous radiation. Her surveillance CT scans on 04/21/2021 appeared stable compared to the September 2020 study with no evidence of recurrent or metastatic disease. She is seen for a scheduled visit. She has been feeling pretty good generally. Her energy is just fair. She says she still struggles, and she does only minimal light work. ECOG score is 2. Her appetite lately has been better. She does not have fever or night sweats. She has no shortness of breath, cough, or chest pain. She has no GI complaints. She has ongoing issues with bladder function and she has been having some leakage following her recent OFF[employer]ENT exams. She has been able to taper off prednisone with no recurrence of her musculoskeletal pain. She does not complain of headache or dizziness. She still has some numbness/tingling in her feet. Medications: Atorvastatin Calcium 1 Tablet (of 20 mg) Oral at bedtime, Diclofenac Sodium (1 %) Gel (jelly) Transdermal four times a day, Furosemide 1 Tablet (of 40 mg) Oral daily, Nitrofurantoin Monohyd Macro 1 (100 mg) Capsule Oral b.i.d., OLANZapine 1 Tablet (of 5 mg) Oral at bedtime, Omeprazole 1 Tablet (of 20 mg) Tablet, enteric coated Oral b.i.d., Premarin Cream Vaginal, Senna S 2 Tablet (of 8.6-50 mg) Oral t.i.d., Spironolactone 1 Tablet (of 25 mg) Oral daily, Stool Softener 1 Tablet (of 100 mg) Oral daily PRN Allergies: Gabapentin, Sulfa Antibiotics, and Torisel. Vital Signs: Performed on Apr 27, 2021 15:38 Height - 66.00 in Weight - 156.8 lbs (LOW) BSA - 1.80 sq.m BMI - 25.31 Temperature - 97.4 F (LOW) Pulse - 68 /min Respiration - 18 /min BP - 129/81 mm(hg) O2 Sat - 96 % Pain - 0 Physical Examination: Constitutional - She looks pretty good generally, Eyes - Sclerae nonicteric. Conjunctivae clear, ENMT - No lesions noted in the oral cavity, Hematologic/Lymphatic - No cervical, clavicular, or axillary adenopathy, Respiratory - Lungs sound clear with good air movement bilaterally, Cardiovascular - Heart rhythm is regular. There is no gallop or rub noted, Abdomen - Soft. Liver and spleen are not enlarged. There is no abdominal mass or ascites noted and there is no inguinal adenopathy, Extremities - No edema, Neurologic - No focal neurologic deficits noted. Lab/Imaging: CBC shows hemoglobin 14.7 g, white blood cell count 8900, and platelet count 376,000. Comprehensive metabolic profile shows stable renal function with BUN 15 and creatinine 1.3 mg/dL. Bilirubin and liver enzymes are normal. LDH is slightly elevated at 219/214 U/L. Problem List: 1. Clear-cell carcinoma of the right kidney, Radha grade 3, stage IV (pT3a, N0, M1). 2. During treatment she developed joint pain and peripheral neuropathy. 3. She has had recurrent urinary tract infections. 4. Hypertension. 8. Hyperlipidemia. 9. She has CT evidence of atherosclerotic cardiovascular disease. Problems Addressed with this Encounter and Plan: 1. Patient with clear-cell carcinoma of the right kidney, Radha grade 3, stage IV (pT3a, N0, M1). She underwent right robotic-assisted laparoscopic radical nephrectomy on 01/06/2015. Her subsequent management was complicated due to ongoing problems with pain in the flank/back on the right side, constipation, and severe nausea/anorexia. I was not able to identify any specific cause for those problems. Her management was further complicated by numerous medication intolerances. She eventually did start a trial of therapy with pazopanib, but she tolerated it poorly, even at a reduced dosage (400 mg daily), and followup CT scans in April 2015 showed evidence of significant disease progression. She started a trial of therapy with Torisel on 06/04/2015, but she was unable to complete the initial infusion because of an acute infusion reaction. She then started a trial of immunotherapy with nivolumab on 06/24/2015. She tolerated it very well at a standard dosage of 3 mg/kg by IV infusion every 2 weeks. She had significant improvement in her performance status as well as evidence of significant response by restaging CT scans. In January 2016 her treatment was put on hold due to increasing fatigue and musculoskeletal pain. Restaging CT scans again on 03/03/2016 showed evidence of residual pulmonary nodules in the upper lobes bilaterally, but they appeared stable. There was no evidence of disease progression. In the meantime, she had significant symptomatically improvement with prednisone, and she was able to resume treatment with nivolumab. As of November 2016 her treatment was put on hold after she had presented to the emergency room with chest pain and hypertension. Her restaging CT scans on 12/26/2016 showed no evidence of disease progression. She was then managed expectantly. During follow-up she has continued to have some fatigue, and she continues to have limited activity. She initially had required steroid therapy for treatment related musculoskeletal pain. She has now been able to taper off prednisone with no recurrence of the pain. She still has some neuropathy symptoms in her feet. Overall, though, she is doing very well clinically with no evidence of recurrence/progression of the renal cell cancer. 2. During the initial treatment of her renal cell cancer she had developed intractable nausea. It was eventually managed with olanzapine, which she has continued at bedtime for nausea and to help with management of insomnia. Signed By: Reg Newsome M.D. <<Signature on File>>
== END 2021-04-27 15:27 | disposition home or self-care (01) ==
LOC: ONCMED 15:30
PROVIDERS: PCP Family Medicine; Visit Provider Internal Medicine Medical Oncology
DX: Z08 Encounter for follow-up examination after completed treatment for malignant neoplasm (principal); Z85.528 Personal history of other malignant neoplasm of kidney; Z79.899 Other long term (current) drug therapy; G62.9 Polyneuropathy, unspecified; G47.00 Insomnia, unspecified; I10 Essential (primary) hypertension; E78.5 Hyperlipidemia, unspecified
CPT/HCPCS: 99214

== ENCOUNTER 2021-06-02 14:11 | Outpatient (CLI) | payer MEDICARE, BC, SELFPAY ==
[2021-06-02 14:46] LABS: Basophils # 0.1 10^3/uL (0.0-0.1); Basophils % 0.8 %; Eosinophils # 0.4 10^3/uL (0.0-0.8); Eosinophils % 5.7 %; Hematocrit 42.7 % (37.0-47.0); Hemoglobin 13.8 g/dL (11.5-15.3); Lymphocytes # 2.7 10^3/uL (0.8-4.8); Lymphocytes % 37.6 %; Mean Corpuscular HGB Conc 32.3 g/dL (30.0-36.0); Mean Corpuscular Hemoglobin 30.2 pg (28.0-34.0); Mean Corpuscular Volume 93.4 fL (81-99); Mean Platelet Volume 8.9 fL (7.4-10.4); Monocytes # 0.7 10^3/uL (0.2-0.9); Monocytes % 9.9 %; Neutrophils # 3.26 10^3/uL (1.8-7.7); Neutrophils % 45.7 %; Nucleated Red Blood Cells % 0 %; Platelet Count 328 10^3/cmm (130-400); Red Blood Count 4.57 10^6/uL (4.1-5.3); Red Cell Distribution Width 15.3 % (12.1-15.1); White Blood Count 7.2 10^3/uL (4.0-10.0)
[2021-06-02 15:33] LABS: Albumin Level 3.7 g/dL (3.5-5.2); Anion Gap 15.4 (5-19); Blood Urea Nitrogen 16 mg/dL (8-23); Calcium 8.7 mg/dL (8.5-10.5); Carbon Dioxide 27 mmol/L (22-29); Chloride 98 mmol/L (98-107); Glucose 85 mg/dL (65-115); Phosphorus 2.5 mg/dL (2.5-4.5); Potassium 4.4 mmol/L (3.5-5.1); Sodium 136 mmol/L (136-145)
[2021-06-02 15:51] LABS: Calcium 8.9 mg/dL (8.5-10.5)
[2021-06-02 15:59] LABS: Parathyroid Hormone 120.3 pg/mL (15-65)
== END 2021-06-02 14:12 | disposition home or self-care (01) ==
LOC: LAB 14:16
PROVIDERS: PCP Family Medicine; Visit Provider Internal Medicine Nephrology
DX: N18.32 Chronic kidney disease, stage 3b (principal)
CPT/HCPCS: 80069; 82310; 83970; 85025

== ENCOUNTER → 2021-06-08 13:47 | Outpatient (BNVA) | payer MEDICARE, BC, SELFPAY | PROVIDERS: PCP Family Medicine; Visit Provider Urology | DX: N39.0 Urinary tract infection, site not specified (principal); N39.41 Urge incontinence | CPT/HCPCS: 81003; 87077; 87086; 87184 ==

== ENCOUNTER 2021-07-06 14:04 | Outpatient (CLI) | payer MEDICARE, BC, SELFPAY ==
--- NOTE | 2021-07-06 14:44 | MM_ITS ---
WS: [id number] LEFT DIGITAL MAMMOGRAPHY WITH CAD CLINICAL INFORMATION: HX OF BREAST CA;RT MASTECTOMY COMPARISON: June 04, 2020 TECHNIQUE: 3 views of the left breast were obtained. FINDINGS: The left breast is composed of heterogeneous fibroglandular density tissue, which can limit the detec tion of small underlying mass lesions. Punctate and clustered calcifications. Dystrophic calcificatio n. Vascular calcification. No suspicious focal mass, asymmetry, calcifications, or architectural distortion. No evidence of cruz gnancy. MM/[place] [id number] IMPRESSION: BI-RADS: 2-Benign FOLLOW UP: 1 Year Follow-up Recommend return to annual diagnostic mammography.
== END 2021-07-06 14:05 | disposition home or self-care (01) ==
LOC: RADSHAW 14:10
PROVIDERS: PCP Family Medicine; Visit Provider Family Medicine
DX: Z85.3 Personal history of malignant neoplasm of breast (principal)
CPT/HCPCS: 77065

== ENCOUNTER → 2021-08-09 17:03 | Outpatient (BNVA) | payer MEDICARE, BC, SELFPAY | PROVIDERS: PCP Family Medicine; Visit Provider Urology | DX: N39.41 Urge incontinence (principal); M19.079 Primary osteoarthritis, unspecified ankle and foot; K59.09 Other constipation; N39.42 Incontinence without sensory awareness; N30.20 Other chronic cystitis without hematuria | CPT/HCPCS: 81003 ==

== ENCOUNTER 2021-10-18 11:50 | Outpatient (CLI) | payer MEDICARE, BC, SELFPAY ==
[2021-10-18 12:18] LABS: Basophils # 0.1 10^3/uL (0.0-0.1); Basophils % 1.1 %; Eosinophils # 0.3 10^3/uL (0.0-0.8); Hematocrit 40.5 % (37.0-47.0); Hemoglobin 13.4 g/dL (11.5-15.3); Lymphocytes # 2.6 10^3/uL (0.8-4.8); Lymphocytes % 40.5 %; Mean Corpuscular HGB Conc 33.1 g/dL (30.0-36.0); Mean Corpuscular Hemoglobin 30.5 pg (28.0-34.0); Mean Corpuscular Volume 92.3 fl (81-99); Mean Platelet Volume 8.7 fL (7.4-10.4); Monocytes # 0.7 10^3/uL (0.2-0.9); Monocytes % 10.4 %; Neutrophils # 2.77 10^3/uL (1.8-7.7); Nucleated Red Blood Cells % 0 %; Platelet Count 321 10^3/cmm (130-400); Red Blood Count 4.39 10^6/uL (4.1-5.3); Red Cell Distribution Width 13.9 % (12.1-15.1); White Blood Count 6.4 10^3/uL (4.0-10.0)
[2021-10-18 12:39] LABS: Alanine Aminotransferase 21 U/L (0-33); Alkaline Phosphatase 91 IU/L (35-105); Aspartate Amino Transferase 25 U/L (0-32); Blood Urea Nitrogen 17 mg/dL (8-23); Calcium 8.7 mg/dL (8.5-10.5); Carbon Dioxide 24 mmol/L (22-29); Chloride 98 mmol/L (98-107); Glucose 100 mg/dL (65-115); Osmolality Calculated 284 mOsm/kg (285-295); Sodium 136 mmol/L (136-145); Total Bilirubin 0.4 mg/dL (0.15-1.2)
[2021-10-18 12:44] LABS: Anion Gap 18.1 (5-19); Potassium 4.1 mmol/L (3.5-5.1)
[2021-10-18 12:45] LABS: Lactate Dehydrogenase 185 U/L (135-214)
--- NOTE | 2021-10-19 06:42 | ONC FU_ITS ---
Dr. Newsome Patient Follow-Up Note Patient: Pratibha Ann Unit #: [id number]: [id number] Dicatated By: Reg Newsome M.D.Date of Visit:Oct 18, 2021 Onc Med Follow-up/Prog Note Chief Complaint: Renal cell cancer. History of Present Illness: This is a 81 year-old woman with metastatic renal cell cancer. She had presented in October 2014 with pain in the right flank area and right side of the back. A CT scan of the abdomen/pelvis showed an upper pole mass in the right kidney measuring 3.1 x 4 x 4.4 cm. The appearance was suspicious for neoplasm. There was associated retroperitoneal and retrocrural lymphadenopathy and there were bilateral lower lobe subcentimeter pulmonary nodules. PET/CT on 12/19/2014 showed 4.3 cm FDG avid mass in the right kidney measuring 4.3 cm. There were multiple FDG avid retroperitoneal lymph nodes which included an infrarenal aortic caval node with SUV 7.4. A 9 mm right retrocrural lymph node was FDG negative. There was no portacaval, mediastinal, or supraclavicular adenopathy noted. There were no hepatic or adrenal metastases. There were innumerable subcentimeter pulmonary nodules. An 8 mm nodule in the left lung apex did show FDG uptake with SUV 2.0. The remainder were FDG negative, presumably due to their small size. The appearance was felt to be consistent with pulmonary metastases. She was referred to Dr. Ronni Rapp in [place]. A right renal biopsy on 12/29/2014 showed poorly differentiated carcinoma consistent with a Radha grade 3/4 renal cell carcinoma. On 01/06/2015 she underwent right robotic-assisted laparoscopic radical nephrectomy and right para vena caval lymph node dissection. Pathology showed clear cell renal cell carcinoma, Radha nuclear grade 3. The tumor measured 5.5 cm in maximum dimension. There was extension into the renal sinus adipose tissue and into the wall of the renal vein. There was invasion through the renal capsule into the perinephric adipose tissues. There was involvement of the renal sinus resection margin and the renal vein resection margin. One right perihilar lymph node was benign. Right destiny-vena cava biopsy showed benign adipose tissue with no lymph node identified. Following the surgery, she had continued to have a fair amount of pain in the right side of the abdomen, right flank, and right side of the back. She also had constipation and severe nausea/anorexia. We had not been able to determine a specific cause for the pain or the nausea/anorexia, and thus far she has just continued symptomatic management for it. She eventually did start a trial of therapy with pazopanib following her visit here on 02/15/2015. It was stopped within a short time because of side effects. It was restarted at a reduced dosage (400 mg daily) following her visit in February 2015. She still tolerated it poorly even at the reduced dosage. She had restaging CT scans on 05/12/2015. There was again evidence of innumerable pulmonary nodules bilaterally. These ranged in size from 5-15 mm. The majority showed cavitary necrotic centers. There was a very slight increase in the size of the pulmonary nodules from the previous study. There was extensive mediastinal lymphadenopathy and bilateral necrotic hilar adenopathy. The adenopathy in the abdomen/pelvis was noted to have increased in size and it appeared more confluent. The largest group of confluent necrotic lymph nodes was at the level of the right renal vein measuring 5.7 x 3.8 x 3.8 cm. Overall, there was evidence of significant disease progression. In May 2015 she began a trial of therapy with Torisel. She received her initial treatment on 06/04/2015. She was unable to complete it due to hypersensitivity reaction. As of 06/24/2015 she started a trial of therapy with nivolumab at a standard dosage of 3 mg/kg by IV infusion every 2 weeks. She tolerated it very well, and during this time she had significant improvement in her performance status. Restaging CT scans in July 2015 showed interval marked improvement in the pulmonary metastatic disease and in the bilateral hilar and mediastinal lymphadenopathy and interval moderate decrease in the size and number of retroperitoneal lymph nodes. As of 12/02/2015 she had completed 12 cycles of treatment. Restaging CT scans at that time showed continued decrease in the size and number of bilateral pulmonary metastatic nodules with no evidence of disease progression in the chest. There was also further decrease in the retroperitoneal lymphadenopathy, and no evidence of disease progression in the abdomen/pelvis region. She continued treatment with nivolumab. In January 2016 her treatment was put on hold due to increasing fatigue and musculoskeletal pain. Restaging CT scans on 03/03/2016 showed no evidence of disease progression. There were irregular pulmonary nodules in the upper lobes bilaterally, but they did appear stable. There was no inguinal, retroperitoneal, or mesenteric adenopathy noted. She did have evidence of extensive abdominal aorta and left iliac artery calcific atheromatous changes, but without aneurysm. There were degenerative changes in the lumbar spine. She did report symptomatic improvement with prednisone, and she was able to continue with cycle 18 of nivolumab on 03/09/2016. CT of the chest, abdomen, and pelvis on 09/06/2016 showed stable pulmonary parenchymal nodules compared to previous studies from 03/03/2016 and 11/30/2015. There was no evidence of a neoplastic process within the abdomen or pelvis. She continued treatment with nivolumab. She received cycle 37 on 11/30/2016. On 12/01/2016, the day following her nivolumab infusion, she had an episode of chest pain. Her pain began in the right side of her back and radiated to her chest. She did not have shortness of breath with that episode, but said that she was hypertensive. She took two nitroglycerin and her pain resolved. She did not go to the emergency room. She did see Dr. Millan, who prescribed her an additional blood pressure pill. She indicated that she had experienced 5 or 6 of these type of spells in the last several years. However, at that point I did opt to put her nivolumab on hold. Restaging CT scans of the chest, abdomen, and pelvis on 12/26/2016 showed no evidence of progressive disease. There were stable subcentimeter 4 5-mm pulmonary nodules noted. There was no mediastinal, abdominal, or pelvic lymphadenopathy. She was then followed on observation/expectant management. She had repeat CT scans of the chest, abdomen, and pelvis on 03/30/2017. There were stable subcentimeter pulmonary nodules which were described as having an inflammatory appearance. There were changes related to the prior nephrectomy. There was no evidence of disease progression in the chest, abdomen, or pelvis. Her surveillance CT scans in September 2017 remained stable, and she continued on observation/expectant management. During subsequent follow-up her overall clinical status remained stable. She was able to gradually taper off prednisone. As of December [address] scans had shown no evidence of recurrence/progression of the renal cell cancer. Her other medical illnesses include hypertension and hyperlipidemia. She has been followed by Dr. Whatley for recurrent urinary tract infections. She also has been treated for both cervical cancer and breast cancer. She had smoked for a short time in the past, but she quit at age 27. INTERIM HISTORY: CT scans on 10/07/2020 showed previous right nephrectomy with no evidence of recurrent mass at the renal bed. There was no evidence of metastatic disease to the chest, abdomen, or pelvis. During her subsequent follow-up she has been having intermittent hematuria. Her repeat cystoscopy on 03/01/2021 showed diffusely inflamed bladder consistent with cystitis. 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 She had SYSTEM MANAGER consultation with Dr. Bruner 03/16/2021. She was noted to have grade 2-3 cystocele, grade 2-3 vault prolapse, and grade 2 rectocele. She then had further evaluation through the SYSTEM MANAGER department at the [facility]. Surgery was not recommended, apparently due to her previous radiation. Her surveillance CT scans on 04/21/2021 appeared stable compared to the September 2020 study with no evidence of recurrent or metastatic disease. She continued on expectant management. She is seen for a scheduled visit. She has been feeling pretty good generally. Her main complaint is that for the past couple of weeks she has been waking up with her legs hurting. She thinks this may be related to having been more active. She has had to take more pain medication, but it has been manageable. Her energy is still just so-so. ECOG score is 1. Appetite is fair. She does not have fever or night sweats. She has not had sore mouth or throat. She does not complain of cough, and she has not been having shortness of breath or chest pain. She has no GI complaints. She remains on dual antibiotic therapy for urinary tract infection. She is followed by Dr. Whatley. She currently is not having any other significant joint or bone pain. She does not complain of headache. She has occasional orthostatic lightheadedness. She has numbness in her feet. Medications: Aspirin 81 1 Tablet (of 81 mg) Tablet, enteric coated Oral daily, Furosemide 1 Tablet (of 40 mg) Oral daily, HYDROmorphone HCl (4 mg) Tablet Oral Take as Directed, Monurol Pack Oral Take as Directed, Nitrofurantoin Monohyd Macro 1 (100 mg) Capsule Oral b.i.d., OLANZapine 1 Tablet (of 5 mg) Oral at bedtime, Premarin Cream Vaginal Allergies: Gabapentin, Sulfa Antibiotics, and Torisel. Vital Signs: Performed on Oct 18, 2021 13:50 Height - 66.00 in Weight - 155.6 lbs (LOW) BSA - 1.80 sq.m BMI - 25.11 Temperature - 98.0 F (LOW) Pulse - 109 /min (HIGH) Respiration - 16 /min BP - 131/74 mm(hg) O2 Sat - 97 % Pain - 7 Fatigue - 7 Physical Examination: Constitutional - She looks pretty good generally, Eyes - Sclerae nonicteric. Conjunctivae clear, ENMT - No lesions noted in the oral cavity, Hematologic/Lymphatic - No cervical, clavicular, or axillary adenopathy, Respiratory - Lungs sound clear with good air movement bilaterally, Cardiovascular - Heart rhythm is regular. There is no gallop or rub noted, Abdomen - Soft. Liver and spleen are not enlarged. There is no abdominal mass or ascites noted and there is no inguinal adenopathy, Extremities - No edema. Dorsalis pedis pulses are palpable bilaterally, Neurologic - No focal neurologic deficits noted. Lab/Imaging: Test performed on Oct 18, 2021 12:08 LDH (Total) 185 U/L Sodium 136 mmol/L Potassium 4.1 mmol/L Chloride 98 mmol/L CO2 24 mmol/L Anion Gap 18.1 BUN 17 mg/dL Creatinine 1.2 mg/dL Cr Clearance (Est) 42.36 mL/min Glucose 100 mg/dL Osmolality - Calculated 284 mOsm/kg Calcium 8.7 mg/dL Protein, Total 7.0 g/dL Albumin 4.0 g/dL Globulin 3.0 g/dL Bilirubin, Total 0.4 mg/dL ALT (SGPT) 21 U/L AST (SGOT) 25 U/L Alkaline Phosphatase 91 IU/L WBC 6.4 10 3/uL RBC 4.39 10 6/uL HGB 13.4 g/dL HCT 40.5 % MCV 92.3 fl MCH 30.5 pg MCHC 33.1 g/dL RDW 13.9 % Platelet Count 321 10 3/cmm MPV 8.7 fL Neutrophils 2.77 10 3/uL Lymphocytes 2.6 10 3/uL Monocytes 0.7 10 3/uL Eosinophils 0.3 10 3/uL Basophils 0.1 10 3/uL Neutrophil % 43.0 % Lymphocyte % 40.5 % Monocyte % 10.4 % Eosinophil % 5.0 % Basophils % 1.1 % NRBC % 0 % Problem List: 1. Clear-cell carcinoma of the right kidney, Radha grade 3, stage IV (pT3a, N0, M1). 2. During treatment she developed joint pain and peripheral neuropathy. 3. She has had recurrent urinary tract infections. 4. Hypertension. 8. Hyperlipidemia. 9. She has CT evidence of atherosclerotic cardiovascular disease. Problems Addressed with this Encounter and Plan: 1. Patient with clear-cell carcinoma of the right kidney, Radha grade 3, stage IV (pT3a, N0, M1). She underwent right robotic-assisted laparoscopic radical nephrectomy on 01/06/2015. Her subsequent management was complicated due to ongoing problems with pain in the flank/back on the right side, constipation, and severe nausea/anorexia. I was not able to identify any specific cause for those problems. Her management was further complicated by numerous medication intolerances. She eventually did start a trial of therapy with pazopanib, but she tolerated it poorly, even at a reduced dosage (400 mg daily), and followup CT scans in April 2015 showed evidence of significant disease progression. She started a trial of therapy with Torisel on 06/04/2015, but she was unable to complete the initial infusion because of an acute infusion reaction. She then started a trial of immunotherapy with nivolumab on 06/24/2015. She tolerated it very well at a standard dosage of 3 mg/kg by IV infusion every 2 weeks. She had significant improvement in her performance status as well as evidence of significant response by restaging CT scans. In January 2016 her treatment was put on hold due to increasing fatigue and musculoskeletal pain. Restaging CT scans again on 03/03/2016 showed evidence of residual pulmonary nodules in the upper lobes bilaterally, but they appeared stable. There was no evidence of disease progression. In the meantime, she had significant symptomatically improvement with prednisone, and she was able to resume treatment with nivolumab. As of November 2016 her treatment was put on hold after she had presented to the emergency room with chest pain and hypertension. Her restaging CT scans on 12/26/2016 showed no evidence of disease progression. She was then managed expectantly. During follow-up she has continued to have some fatigue and her activity has been somewhat limited. She initially had required steroid therapy for treatment related musculoskeletal pain, but she eventually was able to taper off prednisone. She still has some neuropathy symptoms in her legs and feet. Overall, though, she has been doing very well clinically with no evidence of recurrence/progression of the renal cell cancer. She continues on expectant management. She will be scheduled for a follow-up visit with surveillance CT scans in 6 months. 2. During the initial treatment of her renal cell cancer she had developed intractable nausea. It was eventually managed with olanzapine, which she has continued at bedtime for nausea and to help with management of insomnia. Signed By: Reg Newsome M.D. <<Signature on File>>
== END 2021-10-18 11:51 | disposition home or self-care (01) ==
PROVIDERS: PCP Family Medicine; Visit Provider Internal Medicine Medical Oncology
DX: C64.1 Malignant neoplasm of right kidney, except renal pelvis (principal); M25.50 Pain in unspecified joint; G62.9 Polyneuropathy, unspecified; I10 Essential (primary) hypertension; E78.5 Hyperlipidemia, unspecified; I25.10 Atherosclerotic heart disease of native coronary artery without angina pectoris; R11.0 Nausea
CPT/HCPCS: 36415; 80053; 83615; 85025; 99214

== ENCOUNTER 2021-11-30 10:41 | Outpatient (CLI) | payer MEDICARE, BC, SELFPAY ==
[2021-11-30 11:13] LABS: Basophils % 0.2 %; Eosinophils % 0.7 %; Hematocrit 40.9 % (37.0-47.0); Hemoglobin 13.6 g/dL (11.5-15.3); Lymphocytes # 1.6 10^3/uL (0.8-4.8); Mean Corpuscular HGB Conc 33.3 g/dL (30.0-36.0); Mean Corpuscular Hemoglobin 31.7 pg (28.0-34.0); Mean Corpuscular Volume 95.3 fl (81-99); Mean Platelet Volume 8.9 fL (7.4-10.4); Monocytes # 0.6 10^3/uL (0.2-0.9); Monocytes % 10.9 %; Neutrophils # 3.09 10^3/uL (1.8-7.7); Neutrophils % 57.8 %; Nucleated Red Blood Cells % 0 %; Platelet Count 243 10^3/cmm (130-400); Red Blood Count 4.29 10^6/uL (4.1-5.3); Red Cell Distribution Width 13.6 % (12.1-15.1); White Blood Count 5.3 10^3/uL (4.0-10.0)
[2021-11-30 11:49] LABS: Albumin Level 3.7 g/dL (3.5-5.2); Anion Gap 17.4 (5-19); Blood Urea Nitrogen 15 mg/dL (8-23); Calcium 9.2 mg/dL (8.5-10.5); Carbon Dioxide 26 mmol/L (22-29); Chloride 97 mmol/L (98-107); Glucose 143 mg/dL (65-115); Phosphorus 1.2 mg/dL (2.5-4.5); Potassium 3.4 mmol/L (3.5-5.1); Sodium 137 mmol/L (136-145)
[2021-11-30 12:01] LABS: Calcium 9.1 mg/dL (8.5-10.5)
[2021-11-30 12:09] LABS: Parathyroid Hormone 110.5 pg/mL (15-65)
== END 2021-11-30 10:42 | disposition home or self-care (01) ==
LOC: ONCMED 10:47
PROVIDERS: Internal Medicine Nephrology; PCP Family Medicine; Visit Provider Internal Medicine Medical Oncology
DX: C64.1 Malignant neoplasm of right kidney, except renal pelvis (principal); I10 Essential (primary) hypertension; E78.5 Hyperlipidemia, unspecified; Z79.899 Other long term (current) drug therapy
CPT/HCPCS: 36415; 80069; 82310; 83970; 85025

== ENCOUNTER 2021-12-20 10:34 | Outpatient (CLI) | payer MEDICARE, BC, SELFPAY ==
[2021-12-20 11:22] LABS: Albumin Level 4.1 g/dL (3.5-5.2); Blood Urea Nitrogen 10 mg/dL (8-23); Calcium 9.6 mg/dL (8.5-10.5); Carbon Dioxide 24 mmol/L (22-29); Chloride 104 mmol/L (98-107); Glucose 97 mg/dL (65-115); Phosphorus 2.7 mg/dL (2.5-4.5); Sodium 138 mmol/L (136-145)
== END 2021-12-20 10:35 | disposition home or self-care (01) ==
LOC: ONCMED 10:40
PROVIDERS: Internal Medicine Nephrology; PCP Family Medicine; Visit Provider Internal Medicine Medical Oncology
DX: C79.00 Secondary malignant neoplasm of unspecified kidney and renal pelvis (principal); Z85.3 Personal history of malignant neoplasm of breast; Z85.41 Personal history of malignant neoplasm of cervix uteri
CPT/HCPCS: 36415; 80069

== ENCOUNTER → 2021-12-27 13:58 | Outpatient (BNVA) | payer MEDICARE, BC, SELFPAY | PROVIDERS: PCP Family Medicine; Visit Provider Urology | DX: N30.20 Other chronic cystitis without hematuria (principal) | CPT/HCPCS: 81003; 87086 ==

== ENCOUNTER → 2022-01-27 14:08 | Outpatient (BNVA) | payer MEDICARE, BC, SELFPAY | PROVIDERS: PCP Family Medicine; Visit Provider Urology | DX: N30.20 Other chronic cystitis without hematuria (principal) | CPT/HCPCS: 81003 ==

== ENCOUNTER → 2022-02-24 09:57 | Outpatient (BNVA) | payer MEDICARE, BC, SELFPAY | PROVIDERS: PCP Family Medicine; Visit Provider Internal Medicine Cardiovascular Disease | DX: R00.0 Tachycardia, unspecified (principal); I10 Essential (primary) hypertension; G62.9 Polyneuropathy, unspecified; E78.00 Pure hypercholesterolemia, unspecified; Z87.891 Personal history of nicotine dependence | CPT/HCPCS: 93005; 99214 ==

== ENCOUNTER → 2022-05-03 12:57 | Outpatient (BNVA) | payer MEDICARE, BC, SELFPAY | PROVIDERS: PCP Family Medicine; Visit Provider Nurse Practitioner Family | DX: N30.20 Other chronic cystitis without hematuria (principal) | CPT/HCPCS: 99213 ==

== ENCOUNTER 2022-05-24 13:05 | Oncology outpatient (recurring) (ONCR) | payer MEDICARE, BC, SELFPAY ==
--- NOTE | 2022-05-24 13:17 | CT_ITS ---
WS: [id number] CT CHEST, ABDOMEN AND PELVIS WITHOUT CONTRAST. HISTORY: RENAL CELL CANCER TECHNIQUE: Contiguous 5 mm axial imaging performed through the chest, abdomen and pelvis without IV c ontrast, oral contrast has not been provided. Coronal and sagittal reformats chest. Coronal and sagit shahnaz reformats through the abdomen and pelvis. All CT scans at [facility] use at least one of these dose optimization techniques: automated exposure control; mA and/or kV adjustment per patient s ize (includes targeted exams where dose is matched to clinical indication); or iterative reconstructi on. CONTRAST: None DLP: 1255.64 mGy.cm COMPARISON: 04/21/2021, 10/07/[address]: There are a few scattered nodules throughout both lungs which have been stable over several prior years. No nodule or mass. Very mild interstitial thickening probably related to chronic smokin g history. Mild atherosclerosis aorta. Normal size pulmonary artery. Heart size is normal. No pericar dial or pleural effusions. No mediastinal or hilar adenopathy. Prior RIGHT mastectomy. Abdomen CT: Cholelithiasis without acute cholecystitis. Normal size liver and spleen. No bile duct di latation. Normal pancreas and adrenal glands. Prior RIGHT nephrectomy. No recurrent mass at the renal bed. Unenhanced LEFT kidney is negative. No obstruction. Moderate atherosclerosis aorta. No adenopat hy or ascites. Ventral abdominal wall hernia. Normal stomach and small bowel. No obstruction. No wall thickening. Normal appendix. Scattered sigmoi d diverticula. Pelvic CT: Nondistended urinary bladder. No free fluid or adenopathy. Advanced degenerative disc disease at L2-3. L4 anterolisthesis by [address]/[place] [id number] IMPRESSION: 1. Stable appearance the chest, abdomen and pelvis. 2. Prior RIGHT mastectomy and RIGHT nephrectomy. 3. No adenopathy within the chest, abdomen or pelvis. 4. Sigmoid diverticulosis without acute diverticulitis.
[2022-05-24] MEDS: barium sulfate 450 mL Oral Susp PO (14:37)
== END 2022-05-28 23:59 | disposition home or self-care (01) ==
LOC: RAD 13:06 → ONCMED 15:56
PROVIDERS: PCP Family Medicine; Visit Provider Internal Medicine Medical Oncology
DX: C77.8 Secondary and unspecified malignant neoplasm of lymph nodes of multiple regions (principal)
CPT/HCPCS: 71250; 74176

== ENCOUNTER → 2022-05-26 09:11 | Outpatient (BNVA) | payer MEDICARE, BC, SELFPAY | PROVIDERS: PCP Family Medicine; Visit Provider Internal Medicine Cardiovascular Disease | DX: R00.0 Tachycardia, unspecified (principal); I10 Essential (primary) hypertension; Z87.891 Personal history of nicotine dependence | CPT/HCPCS: 99213; 99214 ==

== ENCOUNTER 2022-05-30 10:47 | Oncology outpatient (recurring) (ONCR) | payer MEDICARE, BC, SELFPAY ==
[2022-05-30 11:25] LABS: Basophils # 0.1 10^3/uL (0.0-0.1); Basophils % 0.7 %; Eosinophils # 0.4 10^3/uL (0.0-0.8); Eosinophils % 5.2 %; Hematocrit 42.1 % (37.0-47.0); Hemoglobin 13.6 g/dL (11.5-15.3); Lymphocytes # 2.6 10^3/uL (0.8-4.8); Lymphocytes % 34.5 %; Mean Corpuscular HGB Conc 32.3 g/dL (30.0-36.0); Mean Corpuscular Hemoglobin 31.1 pg (28.0-34.0); Mean Corpuscular Volume 96.3 fl (81-99); Mean Platelet Volume 8.8 fL (7.4-10.4); Monocytes # 0.7 10^3/uL (0.2-0.9); Monocytes % 9.7 %; Neutrophils % 49.8 %; Nucleated Red Blood Cells % 0 %; Platelet Count 250 10^3/cmm (130-400); Red Blood Count 4.37 10^6/uL (4.1-5.3); Red Cell Distribution Width 14.1 % (12.1-15.1); White Blood Count 7.4 10^3/uL (4.0-10.0)
[2022-05-30 11:45] LABS: Alanine Aminotransferase 28 U/L (0-33); Albumin Level 3.3 g/dL (3.5-5.2); Alkaline Phosphatase 90 IU/L (35-105); Aspartate Amino Transferase 30 U/L (0-32); Blood Urea Nitrogen 9 mg/dL (8-23); Calcium 9.1 mg/dL (8.5-10.5); Carbon Dioxide 24 mmol/L (22-29); Chloride 103 mmol/L (98-107); Globulin 3.2 g/dL (1.3-4.6); Glucose 98 mg/dL (65-115); Osmolality Calculated 285 mOsm/kg (285-295); Sodium 138 mmol/L (136-145); Total Bilirubin 0.6 mg/dL (0.15-1.2); Total Protein 6.5 g/dL (6.6-8.7)
[2022-05-30 11:48] LABS: Anion Gap 15.2 (5-19); Lactate Dehydrogenase 203 U/L (135-214); Potassium 4.2 mmol/L (3.5-5.1)
== END 2022-06-28 23:59 | disposition home or self-care (01) ==
PROVIDERS: PCP Family Medicine; Visit Provider Internal Medicine Medical Oncology
DX: Z08 Encounter for follow-up examination after completed treatment for malignant neoplasm (principal); Z85.528 Personal history of other malignant neoplasm of kidney; G62.9 Polyneuropathy, unspecified; M79.10 Myalgia, unspecified site; Z79.52 Long term (current) use of systemic steroids; Z79.891 Long term (current) use of opiate analgesic; Z92.25 Personal history of immunosuppression therapy; Z87.891 Personal history of nicotine dependence
CPT/HCPCS: 80053; 83615; 85025; 99214

== ENCOUNTER 2022-07-20 11:21 | Outpatient (CLI) | payer MEDICARE, BC, SELFPAY ==
--- NOTE | 2022-07-20 11:27 | MM_ITS ---
WS: [id number] Left breast diagnostic 3D tomosynthesis digital mammogram, 07/20/2022 Clinical Data: HX OF BREAST CA;RT MAST. Comparison: 06/17/2021, 06/04/2020, 05/28/2019, 12/17/2017, 11/21/2016, 11/18/2015, 11/12/2015, 11/16/2014, , 10/10/2012, 09/11/2011, 09/08/2010, 08/12/2010, 08/10/2009, 08/06/2008. 07/11/2007. Findings: Left breast shows heterogeneous tissue. There are no secondary signs of carcinoma. There is a benign calcification in the central portion left breast. There are no spiculated masses or clustered calcifi cations. There are minimal vascular calcifications. MM/[place] [id number] Impression: 1. Negative left breast mammogram. 2. Return for annual left breast mammogram. BIRADS: 1-Negative FOLLOW UP: 1 Year Follow-up The CAD odd piece checker was used.
== END 2022-07-20 11:22 | disposition home or self-care (01) ==
LOC: RAD 11:23
PROVIDERS: PCP Family Medicine; Visit Provider Family Medicine
DX: Z85.3 Personal history of malignant neoplasm of breast (principal); Z90.11 Acquired absence of right breast and nipple
CPT/HCPCS: 77061

== ENCOUNTER → 2022-08-03 14:14 | Outpatient (BNVA) | payer MEDICARE, BC, SELFPAY | PROVIDERS: PCP Family Medicine; Visit Provider Urology | DX: N30.20 Other chronic cystitis without hematuria (principal); R33.9 Retention of urine, unspecified; N39.41 Urge incontinence; N81.10 Cystocele, unspecified | CPT/HCPCS: 51798; 99213 ==

== ENCOUNTER 2022-11-30 11:13 | Oncology outpatient (recurring) (ONCR) | payer MEDICARE, SELFPAY ==
[2022-11-30 11:37] LABS: Basophils # 0.1 10^3/uL (0.0-0.1); Basophils % 0.7 %; Eosinophils # 0.4 10^3/uL (0.0-0.8); Eosinophils % 4.1 %; Hematocrit 43.1 % (37.0-47.0); Hemoglobin 14.1 g/dL (11.5-15.3); Lymphocytes # 2.9 10^3/uL (0.8-4.8); Lymphocytes % 34.2 %; Mean Corpuscular HGB Conc 32.7 g/dL (30.0-36.0); Mean Corpuscular Hemoglobin 31.2 pg (28.0-34.0); Mean Corpuscular Volume 95.4 fl (81-99); Mean Platelet Volume 8.7 fL (7.4-10.4); Monocytes # 0.7 10^3/uL (0.2-0.9); Monocytes % 7.6 %; Neutrophils # 4.55 10^3/uL (1.8-7.7); Neutrophils % 53.2 %; Nucleated Red Blood Cells % 0 %; Platelet Count 273 10^3/cmm (130-400); Red Blood Count 4.52 10^6/uL (4.1-5.3); Red Cell Distribution Width 13.2 % (12.1-15.1); White Blood Count 8.6 10^3/uL (4.0-10.0)
[2022-11-30 12:02] LABS: Alanine Aminotransferase 30 U/L (0-33); Alkaline Phosphatase 106 U/L (35-105); Anion Gap 15.3 (5-19); Aspartate Amino Transferase 35 U/L (0-32); Blood Urea Nitrogen 14 mg/dL (8-23); Carbon Dioxide 25 mmol/L (22-29); Chloride 103 mmol/L (98-107); Globulin 3.1 g/dL (1.3-4.6); Glucose 136 mg/dL (65-115); Lactate Dehydrogenase 263 U/L (135-214); Osmolality Calculated 291 mOsm/kg (285-295); Potassium 4.3 mmol/L (3.5-5.1); Sodium 139 mmol/L (136-145); Total Bilirubin 0.4 mg/dL (0.15-1.2); Total Protein 7.1 g/dL (6.6-8.7)
== END 2022-12-26 23:59 | disposition home or self-care (01) ==
PROVIDERS: PCP Family Medicine; Visit Provider Internal Medicine Medical Oncology
DX: Z08 Encounter for follow-up examination after completed treatment for malignant neoplasm (principal); Z85.528 Personal history of other malignant neoplasm of kidney; G62.9 Polyneuropathy, unspecified; Z79.891 Long term (current) use of opiate analgesic; Z92.25 Personal history of immunosuppression therapy; Z87.891 Personal history of nicotine dependence
CPT/HCPCS: 36415; 80053; 83615; 85025; 99214

== ENCOUNTER → 2023-02-22 09:01 | Outpatient (BNVA) | payer MEDICARE, OTHER, SELFPAY | PROVIDERS: PCP Family Medicine; Visit Provider Family Medicine | DX: E78.5 Hyperlipidemia, unspecified (principal); I10 Essential (primary) hypertension; R73.09 Other abnormal glucose; Z51.81 Encounter for therapeutic drug level monitoring; E11.42 Type 2 diabetes mellitus with diabetic polyneuropathy; Z13.220 Encounter for screening for lipoid disorders | CPT/HCPCS: 80053; 80061; 83036; 85025 ==

== ENCOUNTER → 2023-04-27 11:16 | Outpatient (BNVA) | payer MEDICARE, OTHER, SELFPAY | PROVIDERS: PCP Family Medicine; Visit Provider Internal Medicine Cardiovascular Disease | DX: R00.0 Tachycardia, unspecified (principal); I10 Essential (primary) hypertension; Z87.891 Personal history of nicotine dependence | CPT/HCPCS: 99214 ==

== ENCOUNTER 2023-06-07 11:40 | Oncology outpatient (recurring) (ONCR) | payer MEDICARE, OTHER, SELFPAY ==
[2023-06-07 11:46] VITALS: BP 124/74; PULSE 84; RESP 18; TEMP 36.8; O2SAT 96
[2023-06-07 12:26] LABS: Alanine Aminotransferase 26 U/L (0-33); Albumin Level 3.7 g/dL (3.5-5.2); Alkaline Phosphatase 91 U/L (35-105); Aspartate Amino Transferase 29 U/L (0-32); Blood Urea Nitrogen 11 mg/dL (8-23); Calcium 9.2 mg/dL (8.5-10.5); Carbon Dioxide 26 mmol/L (22-29); Chloride 105 mmol/L (98-107); Glucose 141 mg/dL (65-115); Osmolality Calculated 294 mOsm/kg (285-295); Sodium 141 mmol/L (136-145); Total Bilirubin 0.5 mg/dL (0.15-1.2); Total Protein 6.7 g/dL (6.6-8.7)
[2023-06-07 12:31] LABS: Creatinine Clr Calc Pharmacy 35.5896
[2023-06-07 12:38] LABS: Anion Gap 14.4 (5-19); Lactate Dehydrogenase 273 U/L (135-214); Potassium 4.4 mmol/L (3.5-5.1)
[2023-06-07 12:46] LABS: Basophils # 0.1 10^3/uL (0.0-0.1); Basophils % 0.8 %; Eosinophils # 0.2 10^3/uL (0.0-0.8); Eosinophils % 3.3 %; Hematocrit 42.9 % (37.0-47.0); Hemoglobin 14.2 g/dL (11.5-15.3); Lymphocytes # 2.1 10^3/uL (0.8-4.8); Lymphocytes % 34.7 %; Mean Corpuscular HGB Conc 33.1 g/dL (30.0-36.0); Mean Corpuscular Hemoglobin 31.8 pg (28.0-34.0); Mean Corpuscular Volume 96.2 fl (81-99); Mean Platelet Volume 9.3 fL (7.4-10.4); Monocytes # 0.5 10^3/uL (0.2-0.9); Neutrophils # 3.17 10^3/uL (1.8-7.7); Nucleated Red Blood Cells % 0 %; Platelet Count 281 10^3/cmm (130-400); Red Blood Count 4.46 10^6/uL (4.1-5.3); Red Cell Distribution Width 13.5 % (12.1-15.1)
== END 2023-06-28 23:59 | disposition home or self-care (01) ==
PROVIDERS: PCP Family Medicine; Visit Provider Internal Medicine Medical Oncology
DX: Z08 Encounter for follow-up examination after completed treatment for malignant neoplasm (principal); Z85.528 Personal history of other malignant neoplasm of kidney; G62.9 Polyneuropathy, unspecified; Z79.891 Long term (current) use of opiate analgesic; Z92.25 Personal history of immunosuppression therapy; Z87.891 Personal history of nicotine dependence; R63.4 Abnormal weight loss; Z68.27 Body mass index [BMI] 27.0-27.9, adult
CPT/HCPCS: 36415; 80053; 83615; 85025; 99214

== ENCOUNTER 2023-06-21 13:10 | Outpatient (CLI) | payer MEDICARE, SELFPAY ==
--- NOTE | 2023-06-21 14:30 | CT_ITS ---
WS: [id number] CT CHEST, ABDOMEN AND PELVIS WITH CONTRAST. HISTORY: Restaging, history of renal cell cancer and breast cancer. TECHNIQUE: Contiguous 5 mm axial imaging performed through the chest, abdomen and pelvis with IV cont rast, oral contrast has been provided. Coronal and sagittal reformats chest. Coronal and sagittal ref ormats through the abdomen and pelvis. All CT scans at [facility] use at least one of these d ose optimization techniques: automated exposure control; mA and/or kV adjustment per patient size (in cludes targeted exams where dose is matched to clinical indication); or iterative reconstruction. CONTRAST: Omnipaque 350; 100 mL IV. DLP: 860.32 mGy.cm COMPARISON: 05/24/2022, 04/21/[address]: Lung volumes are decreased due to poor inspiration. Mild interstitial thickening which prob ably resolved with better inspiration. There are a few very tiny micronodules and areas of atelectasi s throughout the lungs. No mass or increasing size of a nodule. No pericardial or pleural effusions. Normal aorta and pulmonary artery. Normal size heart. No mediastinal or hilar adenopathy. Prior RIGHT mastectomy. No destructive bone lesions. Abdomen CT: Small hiatal hernia. Normal liver, gallbladder and spleen. No bile duct dilatation. Jojo l portal vein. Normal pancreas. Normal adrenal glands. Mild atherosclerosis aorta. Mild atheroscleros is origin of the mesenteric arteries but no high-grade stenosis. No ascites or adenopathy. Ventral ab dominal wall hernias along the midline containing fat only. Prior RIGHT nephrectomy. No recurrent mass in the renal bed. Normal size LEFT kidney measures 10.3 cm . No mass or obstruction. No perinephric stranding. Normal ureter. Normally distended stomach. Stomach contains food products. No small bowel obstruction. Moderate diff use constipation. Normal appendix. Moderate sigmoid diverticular burden without acute diverticulitis. Pelvic CT: Atrophic uterus. Urinary bladder is not distended. No pelvic mass or adenopathy. Moderate degenerative changes throughout the disc in the lumbar spine. No osteoblastic or osteolytic bone disease. IMPRESSION: 1. No metastatic disease within the chest, abdomen or pelvis. 2. Prior RIGHT mastectomy and RIGHT nephrectomy. 3. Sigmoid diverticulosis without acute diverticulitis. 4. Mild atherosclerosis aorta.
[2023-06-21] MEDS: iohexol 350 mg/mL 500 mL Btl (per mL) PO (14:31)
[2023-06-21] MEDS: iohexol 350 mg/mL 500 mL Btl (per mL) IV (14:40)
== END 2023-06-21 13:11 | disposition home or self-care (01) ==
PROVIDERS: PCP Family Medicine; Visit Provider Nurse Practitioner Family
DX: C64.1 Malignant neoplasm of right kidney, except renal pelvis (principal); Z90.5 Acquired absence of kidney; K57.30 Diverticulosis of large intestine without perforation or abscess without bleeding; I70.0 Atherosclerosis of aorta; Z85.3 Personal history of malignant neoplasm of breast; Z90.11 Acquired absence of right breast and nipple
CPT/HCPCS: 71260; 74177; Q9967

== ENCOUNTER 2023-08-30 13:06 | Outpatient (CLI) | payer MEDICARE, SELFPAY ==
--- NOTE | 2023-08-30 13:12 | MM_ITS ---
WS: [id number] LEFT 3D TOMOSYNTHESIS DIGITAL MAMMOGRAPHY WITH CAD CLINICAL INFORMATION: ANNUAL - HX BR CA; RT MST HISTORY: RIGHT mastectomy COMPARISON: 2021 TECHNIQUE: 3 views of the left breast were obtained. FINDINGS: The left breast is composed of heterogeneous fibroglandular density tissue, which can limit the detec tion of small underlying mass lesions. Incidental punctate and lucent centered calcifications LEFT br east. Vascular calcification. No suspicious focal mass, asymmetry, calcifications, or architectural distortion. No evidence of cruz gnancy. IMPRESSION: MM/[place] [id number] BI-RADS: 2-Benign FOLLOW UP: 1 Year Follow-up Recommend return to annual diagnostic mammography.
== END 2023-08-30 13:07 | disposition home or self-care (01) ==
LOC: RAD 13:06
PROVIDERS: PCP Family Medicine; Visit Provider Family Medicine
DX: Z85.3 Personal history of malignant neoplasm of breast (principal); Z90.11 Acquired absence of right breast and nipple
CPT/HCPCS: 77061; G0279

== ENCOUNTER → 2023-10-09 11:49 | Outpatient (BNVA) | payer MEDICARE, SELFPAY | PROVIDERS: PCP Family Medicine; Visit Provider Internal Medicine Cardiovascular Disease | DX: I10 Essential (primary) hypertension (principal); R00.0 Tachycardia, unspecified; Z87.891 Personal history of nicotine dependence | CPT/HCPCS: G0463 ==

== ENCOUNTER 2023-12-10 11:55 | Oncology outpatient (recurring) (ONCR) | payer MEDICARE, SELFPAY ==
[2023-12-10 12:21] LABS: Basophils # 0.1 10^3/uL (0.0-0.1); Basophils % 0.6 %; Eosinophils # 0.3 10^3/uL (0.0-0.8); Eosinophils % 2.9 %; Lymphocytes # 2.9 10^3/uL (0.8-4.8); Lymphocytes % 31.1 %; Mean Corpuscular HGB Conc 33.1 g/dL (30-55); Mean Corpuscular Hemoglobin 31.6 pg (27-33); Mean Corpuscular Volume 95.5 fl (85-98); Mean Platelet Volume 8.9 fL (7.4-10.4); Monocytes # 0.8 10^3/uL (0.2-0.9); Monocytes % 8.4 %; Neutrophils # 5.28 10^3/uL (1.8-7.7); Neutrophils % 56.8 %; Nucleated Red Blood Cells % 0 %; Platelet Count 280 10^3/cmm (157-399); Red Cell Distribution Width 13.4 % (12.1-15.1)
[2023-12-10 12:36] LABS: Alanine Aminotransferase 35 U/L (0-33); Albumin Level 3.6 g/dL (3.5-5.2); Alkaline Phosphatase 78 U/L (35-105); Anion Gap 13.9 (5-19); Aspartate Amino Transferase 35 U/L (0-32); Blood Urea Nitrogen 11 mg/dL (8-23); Calcium 9.1 mg/dL (8.5-10.5); Carbon Dioxide 25 mmol/L (22-29); Chloride 100 mmol/L (98-107); Globulin 3.2 g/dL (1.3-4.6); Glucose 103 mg/dL (65-115); Lactate Dehydrogenase 180 U/L (135-214); Osmolality Calculated 280 mOsm/kg (285-295); Potassium 3.9 mmol/L (3.5-5.1); Sodium 135 mmol/L (136-145); Total Bilirubin 0.5 mg/dL (0.15-1.2); Total Protein 6.8 g/dL (6.6-8.7)
== END 2023-12-27 23:59 | disposition home or self-care (01) ==
PROVIDERS: Nurse Practitioner Family; PCP Family Medicine; Visit Provider Internal Medicine Medical Oncology
DX: Z08 Encounter for follow-up examination after completed treatment for malignant neoplasm (principal); Z85.528 Personal history of other malignant neoplasm of kidney; Z79.891 Long term (current) use of opiate analgesic; Z92.25 Personal history of immunosuppression therapy; Z87.891 Personal history of nicotine dependence
CPT/HCPCS: 36415; 80053; 83615; 85025; 99214

== ENCOUNTER → 2024-01-08 11:11 | Outpatient (BNVA) | payer MEDICARE, SELFPAY | PROVIDERS: PCP Family Medicine; Visit Provider Nurse Practitioner Family | DX: I10 Essential (primary) hypertension (principal); Z87.891 Personal history of nicotine dependence | CPT/HCPCS: 99213 ==

== ENCOUNTER → 2024-06-06 10:41 | Outpatient (BNVA) | payer MEDICARE, SELFPAY | PROVIDERS: PCP Family Medicine; Visit Provider Family Medicine | DX: C64.9 Malignant neoplasm of unspecified kidney, except renal pelvis (principal) | CPT/HCPCS: 80053; 85025; 86140 ==

== ENCOUNTER 2024-06-16 08:50 | Outpatient (CLI) | payer MEDICARE, SELFPAY ==
--- NOTE | 2024-06-16 09:00 | CTR_ITS ---
PROCEDURE INFORMATION: Exam: CT Chest Without Contrast; Diagnostic Exam date and time: 06/16/2024 9:46 AM Age: 84 years old Clinical indication: Condition or disease; Cancer; Kidney, right; Other: Renal cell carcinoma; Prior surgery; Surgery date: 6+ months; Surgery type: Breast, renal cell, cervix; Additional info: Surveillance TECHNIQUE: Imaging protocol: Diagnostic computed tomography of the chest without contrast. Radiation optimization: All CT scans at this facility use at least one of these dose optimization techniques: automated exposure control; mA and/or kV adjustment per patient size (includes targeted exams where dose is matched to clinical indication); or iterative reconstruction. COMPARISON: CT chest abdpel w/*[id number] 06/21/2023 2:36 PM RADIATION DOSE METRICS: Total DLP (mGy-cm): 735.17 FINDINGS: Lungs: There are scattered tiny nodular densities within the lungs bilaterally measuring up to 2-3 mm which are unchanged. There are scattered areas of scarring noted bilaterally. No consolidating infiltrates are noted. No new nodules are seen. Pleural spaces: Unremarkable. No pneumothorax. No pleural effusion. Heart: Unremarkable. No cardiomegaly. No pericardial effusion. Coronary arteries: There are [id number] atherosclerotic vascular calcifications of the coronary arteries. Lymph nodes: Unremarkable. No enlarged lymph nodes. Vasculature: Unremarkable. No aortic aneurysm. Bones/joints: There are mild degenerative changes of the thoracic spine. No acute fractures are identified. Soft tissues: Unremarkable. PROCEDURE INFORMATION: Exam: CT Abdomen And Pelvis Without Contrast Exam date and time: 06/16/2024 9:46 AM Age: 84 years old Clinical indication: Condition or disease; Cancer; Kidney, right; Other: Renal cell carcinoma; Prior surgery; Surgery date: 6+ months; Surgery type: Breast, renal cell, cervix; Additional info: Surveillance TECHNIQUE: Imaging protocol: Computed tomography of the abdomen and pelvis without contrast. Radiation optimization: All CT scans at this facility use at least one of these dose optimization techniques: automated exposure control; mA and/or kV adjustment per patient size (includes targeted exams where dose is matched to clinical indication); or iterative reconstruction. COMPARISON: CT chest abdpel w/*[id number] 06/21/2023 2:36 PM RADIATION DOSE METRICS: Total DLP (mGy-cm): 735.17 FINDINGS: Liver: Normal. No mass. Gallbladder and biliary ducts: There are multiple calculi within the dependent portion of the gallbladder. The gallbladder is nondistended. Pancreas: Normal. No ductal dilation. Spleen: Normal. No splenomegaly. Adrenal glands: Normal. No mass. Kidneys and ureters: The right kidney is surgically absent. There is a punctate nonobstructing left renal calculus. There is no evidence of hydronephrosis. Stomach and bowel: Note is made of colonic diverticulosis without evidence of acute diverticulitis. There is no evidence of bowel obstruction. Appendix: No evidence of appendicitis. Intraperitoneal space: Unremarkable. No free air. No significant fluid collection. Vasculature: Moderate atherosclerotic vascular calcifications are noted. There is no evidence of abdominal aortic aneurysm. Lymph nodes: Unremarkable. No enlarged lymph nodes. Urinary bladder: Unremarkable as visualized. Reproductive: The uterus is atrophic Bones/joints: There are degenerative changes of the lumbar spine. There is a hemangioma again noted within the L3 vertebral body Soft tissues: There is a tiny fat containing umbilical hernia. CT/[place] [id number] IMPRESSION: No evidence of thoracic metastatic disease or acute abnormality IMPRESSION: 1. Postsurgical changes of right nephrectomy. 2. No evidence of abdominal or pelvic metastatic disease given limitations owing to noncontrast technique 3. Cholelithiasis
[2024-06-16] MEDS: iohexol 350 mg/mL 500 mL Btl (per mL) PO (09:55)
== END 2024-06-16 08:51 | disposition home or self-care (01) ==
PROVIDERS: PCP Family Medicine; Visit Provider Nurse Practitioner Family
DX: C64.9 Malignant neoplasm of unspecified kidney, except renal pelvis (principal); I25.10 Atherosclerotic heart disease of native coronary artery without angina pectoris; Z90.5 Acquired absence of kidney; N20.0 Calculus of kidney; K57.90 Diverticulosis of intestine, part unspecified, without perforation or abscess without bleeding; M47.816 Spondylosis without myelopathy or radiculopathy, lumbar region; N85.8 Other specified noninflammatory disorders of uterus; D18.09 Hemangioma of other sites; K80.20 Calculus of gallbladder without cholecystitis without obstruction
CPT/HCPCS: 71250; 74176; Q9967

== ENCOUNTER 2024-06-16 14:02 | Oncology outpatient (recurring) (ONCR) | payer MEDICARE, SELFPAY ==
[2024-06-16 14:21] LABS: Basophils # 0.1 10^3/uL (0.0-0.1); Basophils % 0.8 %; Eosinophils # 0.1 10^3/uL (0.0-0.8); Eosinophils % 1.6 %; Hematocrit 39.4 % (36-47); Lymphocytes # 3.5 10^3/uL (0.8-4.8); Lymphocytes % 38.9 %; Mean Corpuscular HGB Conc 32.7 g/dL (30-55); Mean Corpuscular Hemoglobin 31.2 pg (27-33); Mean Corpuscular Volume 95.2 fl (85-98); Mean Platelet Volume 8.8 fL (7.4-10.4); Monocytes # 0.7 10^3/uL (0.2-0.9); Monocytes % 8.2 %; Neutrophils # 4.51 10^3/uL (1.8-7.7); Neutrophils % 50.4 %; Nucleated Red Blood Cells % 0 %; Platelet Count 278 10^3/cmm (157-399); Red Blood Count 4.14 10^6/uL (3.85-5.65); Red Cell Distribution Width 13.2 % (12.1-15.1); White Blood Count 8.93 10^3/uL (3.29-11.43)
[2024-06-16 14:37] LABS: Alanine Aminotransferase 25 U/L (0-33); Albumin Level 3.6 g/dL (3.5-5.2); Alkaline Phosphatase 73 U/L (35-105); Anion Gap 15.4 (5-19); Aspartate Amino Transferase 30 U/L (0-32); Blood Urea Nitrogen 12 mg/dL (8-23); Calcium 9.1 mg/dL (8.5-10.5); Carbon Dioxide 24 mmol/L (22-29); Chloride 103 mmol/L (98-107); Glucose 115 mg/dL (65-115); Lactate Dehydrogenase 175 U/L (135-214); Osmolality Calculated 287 mOsm/kg (285-295); Potassium 4.4 mmol/L (3.5-5.1); Sodium 138 mmol/L (136-145); Total Bilirubin 0.4 mg/dL (0.15-1.2); Total Protein 6.6 g/dL (6.6-8.7)
== END 2024-06-28 23:59 | disposition home or self-care (01) ==
PROVIDERS: Nurse Practitioner Family; PCP Family Medicine; Visit Provider Internal Medicine Medical Oncology
DX: Z08 Encounter for follow-up examination after completed treatment for malignant neoplasm (principal); Z85.528 Personal history of other malignant neoplasm of kidney; Z79.891 Long term (current) use of opiate analgesic; Z92.25 Personal history of immunosuppression therapy; Z87.891 Personal history of nicotine dependence; Z53.9 Procedure and treatment not carried out, unspecified reason; Z90.5 Acquired absence of kidney; G62.9 Polyneuropathy, unspecified; Z85.3 Personal history of malignant neoplasm of breast; Z85.41 Personal history of malignant neoplasm of cervix uteri
CPT/HCPCS: 36415; 71250; 74176; 80053; 83615; 85025; 99214; Q9967

== ENCOUNTER → 2024-07-10 10:31 | Outpatient (BNVA) | payer MEDICARE, SELFPAY | PROVIDERS: PCP Family Medicine; Visit Provider Internal Medicine Cardiovascular Disease | DX: I49.8 Other specified cardiac arrhythmias (principal); R07.9 Chest pain, unspecified; I25.10 Atherosclerotic heart disease of native coronary artery without angina pectoris; E78.00 Pure hypercholesterolemia, unspecified; I10 Essential (primary) hypertension; E78.5 Hyperlipidemia, unspecified; R00.0 Tachycardia, unspecified | CPT/HCPCS: 93005; 99214 ==

== ENCOUNTER 2024-09-18 11:11 | Oncology outpatient (recurring) (ONCR) | payer MEDICARE, SELFPAY ==
--- NOTE | 2024-09-18 11:30 | MM_ITS ---
WS: [id number] LEFT 3D TOMOSYNTHESIS DIGITAL MAMMOGRAPHY WITH CAD CLINICAL INFORMATION: History of breast cancer HISTORY: History of RIGHT mastectomy COMPARISON: 2022 TECHNIQUE: 3 views of the left breast were obtained. FINDINGS: The left breast is composed of heterogeneous fibroglandular density tissue, which can limit the detec tion of small underlying mass lesions. Dystrophic calcifications LEFT breast. Vascular calcifications . Incidental punctate and clustered calcifications. Increasing breast nodularity with a dominant nodule measuring 1.3 cm lower inner LEFT breast near the 9 o'clock position. Recommend further evaluation with LEFT breast diagnostic mammography and ultraso und. MM/MM diag LT tomosynthesis [id number] IMPRESSION: DENSITY: The breasts are heterogeneously dense, which may obscure small masses. BI-RADS: 0 - Incomplete: Need additional imaging evaluation FOLLOW UP: Need Additional Imaging Recommend LEFT breast diagnostic mammography and ultrasound.
== END 2024-09-27 23:59 | disposition home or self-care (01) ==
LOC: RAD 11:11 → ONCMED 09-22 09:19
PROVIDERS: PCP Family Medicine; Visit Provider Family Medicine
DX: Z08 Encounter for follow-up examination after completed treatment for malignant neoplasm (principal); Z85.528 Personal history of other malignant neoplasm of kidney; Z79.891 Long term (current) use of opiate analgesic; Z92.25 Personal history of immunosuppression therapy; Z87.891 Personal history of nicotine dependence; Z53.9 Procedure and treatment not carried out, unspecified reason; Z90.5 Acquired absence of kidney; G62.9 Polyneuropathy, unspecified; Z85.3 Personal history of malignant neoplasm of breast; Z85.41 Personal history of malignant neoplasm of cervix uteri
CPT/HCPCS: 77061; G0279

== ENCOUNTER 2024-11-10 11:59 | Outpatient (CLI) | payer MEDICARE, SELFPAY ==
--- NOTE | 2024-11-10 12:30 | MM_ITS ---
WS: [id number] LEFT 3D TOMOSYNTHESIS DIGITAL MAMMOGRAPHY WITH CAD CLINICAL INFORMATION: Left breast nodule HISTORY: Additional views COMPARISON: 2023 TECHNIQUE: 3 views of the left breast were obtained. FINDINGS: The left breast is composed of heterogeneous fibroglandular density tissue, which can limit the detec tion of small underlying mass lesions. Stable previously described nodule measuring 1.3 cm inner quad rant LEFT breast near the 9 o'clock position. Ultrasound is pending. A few stable incidental calcific ations. ULTRASOUND BREAST LEFT TECHNIQUE: Ultrasound left breast focused area of concern. CLINICAL INFORMATION: Left breast nodule FINDINGS: Ultrasound LEFT breast near the 9 o'clock position. Vascular calcification. Simple appearing ovoid cyst corresponds to the mammographic findings at the 10 o'clock position measu ring 1.6 x 1.2 x 0.8 cm. In addition tiny simple cyst at the 11 o'clock position measuring 0.5 x 0.4 cm. Incidental shadowing calcifications are noted at the 9 o'clock position. MM/MM diag LT tomosynthesis [id number] IMPRESSION: DENSITY: The breasts are heterogeneously dense, which may obscure small masses. BI-RADS: 2 - Benign FOLLOW UP: 1 Year Follow-up Recommend return to annual screening mammography.
--- NOTE | 2024-11-10 12:38 | US_ITS ---
WS: [id number] LEFT 3D TOMOSYNTHESIS DIGITAL MAMMOGRAPHY WITH CAD CLINICAL INFORMATION: Left breast nodule HISTORY: Additional views COMPARISON: 2023 TECHNIQUE: 3 views of the left breast were obtained. FINDINGS: The left breast is composed of heterogeneous fibroglandular density tissue, which can limit the detec tion of small underlying mass lesions. Stable previously described nodule measuring 1.3 cm inner quad rant LEFT breast near the 9 o'clock position. Ultrasound is pending. A few stable incidental calcific ations. ULTRASOUND BREAST LEFT TECHNIQUE: Ultrasound left breast focused area of concern. CLINICAL INFORMATION: Left breast nodule FINDINGS: Ultrasound LEFT breast near the 9 o'clock position. Vascular calcification. Simple appearing ovoid cyst corresponds to the mammographic findings at the 10 o'clock position measu ring 1.6 x 1.2 x 0.8 cm. In addition tiny simple cyst at the 11 o'clock position measuring 0.5 x 0.4 cm. Incidental shadowing calcifications are noted at the 9 o'clock position. US/US breast LT limited* [id number] IMPRESSION: DENSITY: The breasts are heterogeneously dense, which may obscure small masses. BI-RADS: 2 - Benign FOLLOW UP: 1 Year Follow-up Recommend return to annual screening mammography.
== END 2024-11-10 12:00 | disposition home or self-care (01) ==
LOC: RAD 12:01
PROVIDERS: PCP Family Medicine; Visit Provider Family Medicine
DX: N63.24 Unspecified lump in the left breast, lower inner quadrant (principal); R92.332 Mammographic heterogeneous density, left breast; R92.1 Mammographic calcification found on diagnostic imaging of breast; N60.02 Solitary cyst of left breast
CPT/HCPCS: 76642; 77061; G0279

== ENCOUNTER 2025-01-16 08:14 | Oncology outpatient (recurring) (ONCR) | payer MEDICARE, SELFPAY ==
[2025-01-16 08:32] LABS: Basophils # 0.1 10^3/uL (0.0-0.1); Basophils % 1.1 %; Eosinophils # 0.3 10^3/uL (0.0-0.8); Eosinophils % 4.2 %; Lymphocytes # 2.9 10^3/uL (0.8-4.8); Lymphocytes % 44.4 %; Mean Corpuscular HGB Conc 32.1 g/dL (30-55); Mean Corpuscular Hemoglobin 30.9 pg (27-33); Mean Corpuscular Volume 96.1 fl (85-98); Mean Platelet Volume 8.6 fL (7.4-10.4); Monocytes # 0.6 10^3/uL (0.2-0.9); Monocytes % 8.7 %; Neutrophils # 2.68 10^3/uL (1.8-7.7); Neutrophils % 41.4 %; Nucleated Red Blood Cells % 0 %; Platelet Count 276 10^3/cmm (157-399); Red Blood Count 4.37 10^6/uL (3.85-5.65); Red Cell Distribution Width 13.5 % (12.1-15.1); White Blood Count 6.46 10^3/uL (3.29-11.43)
[2025-01-16 08:53] LABS: Alanine Aminotransferase 15 U/L (0-33); Albumin Level 3.8 g/dL (3.5-5.2); Alkaline Phosphatase 78 U/L (35-105); Anion Gap 13.7 (5-19); Aspartate Amino Transferase 25 U/L (0-32); Blood Urea Nitrogen 10 mg/dL (8-23); Calcium 9.3 mg/dL (8.5-10.5); Carbon Dioxide 26 mmol/L (22-29); Chloride 99 mmol/L (98-107); Globulin 3.2 g/dL (1.3-4.6); Glucose 103 mg/dL (65-115); Osmolality Calculated 279 mOsm/kg (285-295); Potassium 3.7 mmol/L (3.5-5.1); Sodium 135 mmol/L (136-145); Total Bilirubin 0.6 mg/dL (0.15-1.2)
== END 2025-01-26 23:59 | disposition home or self-care (01) ==
PROVIDERS: Nurse Practitioner Family; PCP Family Medicine; Visit Provider Family Medicine
DX: Z08 Encounter for follow-up examination after completed treatment for malignant neoplasm (principal); Z85.528 Personal history of other malignant neoplasm of kidney; G62.9 Polyneuropathy, unspecified; I10 Essential (primary) hypertension; Z87.891 Personal history of nicotine dependence; Z92.21 Personal history of antineoplastic chemotherapy; Z90.5 Acquired absence of kidney; Z92.25 Personal history of immunosuppression therapy
CPT/HCPCS: 36415; 80053; 85025; 99214

== ENCOUNTER 2025-06-01 11:24 | Oncology outpatient (recurring) (ONCR) | payer MEDICARE, SELFPAY ==
[2025-06-01] MEDS: iohexol 350 mg/mL 500 mL Btl (per mL) PO (12:19)
--- NOTE | 2025-06-01 12:45 | CT_ITS ---
WS: [id number] CT CHEST, ABDOMEN AND PELVIS WITHOUT CONTRAST HISTORY: Follow-up breast cancer and renal cell cancer. TECHNIQUE: Contiguous 5 mm axial imaging performed through the chest, abdomen and pelvis without IV contrast, oral contrast has been provided. Coronal and sagittal reformats chest. Coronal and sagittal reformats through the abdomen and pelvis. All CT scans at [facility] use at least one of these dose optimization techniques: automated exposure control; mA and/or kV adjustment per patient size (includes targeted exams where dose is matched to clinical indication); or iterative reconstruction. CONTRAST: None DLP: 671.87 mGy.cm COMPARISON: 06/16/2024, 06/21/[address]: There are a few scattered very small pulmonary nodules which are stable. No mass or enlarging nodule. No pericardial or pleural effusions. Mild atherosclerosis aorta. Normal size pulmonary artery. No adenopathy. Small hiatal hernia. Prior RIGHT mastectomy. No recurrent mass at the surgical bed. No destructive bone lesions. Abdomen CT: Normal appearance of the liver and spleen. Cholelithiasis without acute cholecystitis. No adrenal mass. Negative pancreas. Mild atherosclerosis aorta. Prior RIGHT nephrectomy. No mass at the renal bed. Normal appearance of the LEFT kidney. There is no obstruction of the LEFT kidney. No perinephric stranding. No GI tract obstruction. Mild diverticular disease without acute diverticulitis. Normal appendix. Fat-containing umbilical hernia. Pelvic CT: No ascites or adenopathy. Minimally distended urinary bladder. Disc base narrowing and sclerosis at L2-3 and L3-4. L4 anterolisthesis by [address]/[place] [id number] IMPRESSION: 1. Status post RIGHT mastectomy. No recurrent mass at the surgical site. 2. Status post RIGHT nephrectomy. No recurrent mass at the surgical bed. 3. No ascites or adenopathy in the chest, abdomen or pelvis. 4. Cholelithiasis without acute cholecystitis. 5. Fat-containing umbilical hernia. 6. Sigmoid diverticulosis without acute diverticulitis. 7. Previously described 2 mm calcification in the LEFT renal pelvis is no long er present.
== END 2025-06-28 23:59 | disposition home or self-care (01) ==
LOC: ONCMED 11:26
PROVIDERS: PCP Family Medicine; Visit Provider Family Medicine
DX: Z08 Encounter for follow-up examination after completed treatment for malignant neoplasm (principal); Z85.528 Personal history of other malignant neoplasm of kidney; G62.9 Polyneuropathy, unspecified; I10 Essential (primary) hypertension; Z87.891 Personal history of nicotine dependence; Z92.21 Personal history of antineoplastic chemotherapy; Z90.5 Acquired absence of kidney; Z92.25 Personal history of immunosuppression therapy; Z79.891 Long term (current) use of opiate analgesic; Z53.9 Procedure and treatment not carried out, unspecified reason; Z85.3 Personal history of malignant neoplasm of breast; Z85.41 Personal history of malignant neoplasm of cervix uteri; C64.9 Malignant neoplasm of unspecified kidney, except renal pelvis
CPT/HCPCS: 71250; 74176

== ENCOUNTER → 2025-07-13 10:07 | Outpatient (BNVA) | payer MEDICARE, SELFPAY | PROVIDERS: PCP Family Medicine; Visit Provider Internal Medicine Cardiovascular Disease | DX: I25.10 Atherosclerotic heart disease of native coronary artery without angina pectoris (principal); E78.5 Hyperlipidemia, unspecified; I10 Essential (primary) hypertension; R00.0 Tachycardia, unspecified; Z87.891 Personal history of nicotine dependence | CPT/HCPCS: 99214 ==

== ENCOUNTER 2025-07-23 11:24 | Oncology outpatient (recurring) (ONCR) | payer MEDICARE, SELFPAY ==
[2025-07-23 11:43] LABS: Hematocrit 40.4 % (36-47); Hemoglobin 13.70 g/dL (11.27-16.99); Mean Corpuscular HGB Conc 33.9 g/dL (30-55); Mean Corpuscular Hemoglobin 32.0 pg (27-33); Mean Corpuscular Volume 94.4 fl (85-98); Nucleated Red Blood Cells % 0 %; Platelet Count 314 10^3/cmm (157-399); Red Blood Count 4.28 10^6/uL (3.85-5.65); White Blood Count 9.89 10^3/uL (3.29-11.43)
[2025-07-23 12:01] LABS: Alanine Aminotransferase 65 U/L (0-33); Albumin Level 3.7 g/dL (3.5-5.2); Alkaline Phosphatase 94 U/L (35-105); Anion Gap 14.9 (5-19); Aspartate Amino Transferase 29 U/L (0-32); Blood Urea Nitrogen 13 mg/dL (8-23); Calcium 9.6 mg/dL (8.5-10.5); Carbon Dioxide 26 mmol/L (22-29); Chloride 96 mmol/L (98-107); Globulin 3.2 g/dL (1.3-4.6); Glucose 109 mg/dL (65-115); Osmolality Calculated 277 mOsm/kg (285-295); Potassium 3.9 mmol/L (3.5-5.1); Sodium 133 mmol/L (136-145); Total Protein 6.9 g/dL (6.6-8.7)
== END 2025-07-28 23:59 | disposition home or self-care (01) ==
PROVIDERS: Nurse Practitioner Family; PCP Family Medicine; Visit Provider Family Medicine
DX: Z08 Encounter for follow-up examination after completed treatment for malignant neoplasm (principal); Z85.528 Personal history of other malignant neoplasm of kidney; G62.9 Polyneuropathy, unspecified; Z87.891 Personal history of nicotine dependence; Z92.21 Personal history of antineoplastic chemotherapy; Z90.5 Acquired absence of kidney; Z92.25 Personal history of immunosuppression therapy
CPT/HCPCS: 36415; 80053; 83615; 85025; 99213